=== PATIENT | female | born 1965 | race Two or more races ===

== ENCOUNTER → 2017-03-20 | Outpatient (CLI) | payer BC ==
[2017-03-20 08:00] LABS: ABSOLUTE BASOPHILS # (AUTO) 0.1 10^3/uL (0.0-0.2); ABSOLUTE EOSINOPHILS # (AUTO) 0.3 10^3/uL (0.0-0.6); ABSOLUTE LYMPHOCYTES (AUTO) 2.1 10^3/uL (0.5-4.7); ABSOLUTE MONOCYTES (AUTO) 0.6 10^3/uL (0.1-1.4); ABSOLUTE NEUT (AUTO) 4.4 10^3/uL (1.7-8.2); BASOPHILS % (AUTO) 0.7 % (0-2); EOSINOPHILS % (AUTO) 3.9 % (0-6); HEMATOCRIT 36.2 % (36.0-47.0); HEMOGLOBIN 11.8 g/dL (12.0-15.5); HGB HCT DIFFERENCE -0.8; LYMPHOCYTES % (AUTO) 28.3 % (13-45); MEAN CORPUSCULAR HEMOGLOBIN 26.9 pg (27.0-33.4); MEAN CORPUSCULAR HGB CONC 32.5 g/dL (32.0-36.0); MEAN CORPUSCULAR VOLUME 83 fl (80-97); MONOCYTES % (AUTO) 8.1 % (3-13); RED BLOOD COUNT 4.37 10^6/uL (3.72-5.28); RED CELL DISTRIBUTION WIDTH 15.6 % (11.5-14.0); WHITE BLOOD COUNT 7.4 10^3/uL (4.0-10.5)
[2017-03-20 08:13] LABS: ALANINE AMINOTRANSFERASE 23 U/L (9-52); ALKALINE PHOSPHATASE 107 U/L (38-126); ANION GAP 10 (5-19); ASPARTATE AMINO TRANSFERASE 20 U/L (14-36); BILIRUBIN,DIRECT 0.4 mg/dL (0.0-0.4); BILIRUBIN,TOTAL 0.7 mg/dL (0.2-1.3); BLOOD UREA NITROGEN 13 mg/dL (7-20); CALCIUM 9.9 mg/dL (8.4-10.2); CARBON DIOXIDE 31 mmol/L (22-30); CHLORIDE 100 mmol/L (98-107); CHOLESTEROL 149.32 mg/dL (0-200); CREATININE RESULT 0.47 mg/dL (0.52-1.25); Direct HDL 74 mg/dL (>40); GLUCOSE 100 mg/dL (75-110); POTASSIUM 4.4 mmol/L (3.6-5.0); TOTAL PROTEIN 7.5 g/dL (6.3-8.2); TRIGLYCERIDES 70 mg/dL (<150)
[2017-03-20 08:24] LABS: DIRECT LDL 55 mg/dL (<100)
== END ==
LOC: OD 07:15
PROVIDERS: ATTEND Psychiatry & Neurology Psychiatry
DX: F31.9 Bipolar disorder, unspecified (principal)
CPT/HCPCS: 36415; 80053; 80061; 84443; 85025

== ENCOUNTER → 2017-08-27 | Outpatient (CLI) | payer BC ==
[2017-08-27 09:17] LABS: ABSOLUTE EOSINOPHILS # (AUTO) 0.2 10^3/uL (0.0-0.6); ABSOLUTE MONOCYTES (AUTO) 0.6 10^3/uL (0.1-1.4); BASOPHILS % (AUTO) 0.7 % (0-2); EOSINOPHILS % (AUTO) 3.2 % (0-6); HEMATOCRIT 32.9 % (36.0-47.0); HEMOGLOBIN 10.9 g/dL (12.0-15.5); HGB HCT DIFFERENCE -0.2; LYMPHOCYTES % (AUTO) 34.3 % (13-45); MEAN CORPUSCULAR HEMOGLOBIN 27.6 pg (27.0-33.4); MEAN CORPUSCULAR VOLUME 84 fl (80-97); RED BLOOD COUNT 3.93 10^6/uL (3.72-5.28); RED CELL DISTRIBUTION WIDTH 16.6 % (11.5-14.0); SEGMENTED NEUTROPHILS % (AUTO) 51.8 % (42-78); WHITE BLOOD COUNT 5.9 10^3/uL (4.0-10.5)
[2017-08-27 09:40] LABS: ALANINE AMINOTRANSFERASE 44 U/L (9-52); ALBUMIN 3.9 g/dL (3.5-5.0); ALKALINE PHOSPHATASE 75 U/L (38-126); ANION GAP 10 (5-19); ASPARTATE AMINO TRANSFERASE 31 U/L (14-36); BILIRUBIN,DIRECT 0.3 mg/dL (0.0-0.4); BILIRUBIN,TOTAL 0.5 mg/dL (0.2-1.3); BLOOD UREA NITROGEN 14 mg/dL (7-20); CALCIUM 9.8 mg/dL (8.4-10.2); CARBON DIOXIDE 31 mmol/L (22-30); CHLORIDE 103 mmol/L (98-107); CHOLESTEROL 139.77 mg/dL (0-200); CREATININE RESULT 0.44 mg/dL (0.52-1.25); Direct HDL 93 mg/dL (>40); GLUCOSE 71 mg/dL (75-110); POTASSIUM 4.4 mmol/L (3.6-5.0); SODIUM 143.7 mmol/L (137-145); TOTAL PROTEIN 6.8 g/dL (6.3-8.2); TRIGLYCERIDES 59 mg/dL (<150)
[2017-08-27 09:51] LABS: DIRECT LDL 34 mg/dL (<100)
== END ==
LOC: OD 07:51
PROVIDERS: ATTEND Psychiatry & Neurology Psychiatry
DX: F31.9 Bipolar disorder, unspecified (principal); G47.00 Insomnia, unspecified
CPT/HCPCS: 36415; 80053; 80061; 84443; 85025

== ENCOUNTER → 2017-08-28 | Outpatient (CLI) | payer BC ==
--- NOTE | 2017-08-28 16:52 | RADIOLOGY REPORT (SQ) ---
EXAM DESCRIPTION: LUMBAR SPINE COMPLETE COMPLETED DATE/TIME: 08/28/2017 4:02 pm REASON FOR STUDY: RADICULOPATHY, SITE UNSPECIFIED M54.10 RADICULOPATHY, SITE UNSPECIFIED COMPARISON: None. NUMBER OF VIEWS: Five views including obliques. TECHNIQUE: AP, lateral, oblique, and sacral radiographic images acquired of the lumbar spine. LIMITATIONS: None. FINDINGS: MINERALIZATION: Normal. SEGMENTATION: Normal. No transitional anatomy. ALIGNMENT: There is minimal anterolisthesis of L 4 in relation to L5. VERTEBRAE: Maintained height. No fracture or worrisome bone lesion. DISCS: No significant disc space reduction is seen. There is anterior osteophytic lipping at multipl e levels. POSTERIOR ELEMENTS: Pedicles and facets are intact. No pars defect or posterior arch defects. HARDWARE: None in the spine. PARASPINAL SOFT TISSUES: Normal. PELVIS: Intact as visualized. No fractures or worrisome bone lesions. Degenerative changes are ident ified at the level of the SI joints with bony sclerosis. OTHER: No other significant finding. IMPRESSION: Degenerative changes as noted above TECHNICAL DOCUMENTATION: JOB ID: [id number] [employer]- All Rights Reserved
== END ==
LOC: OD 15:22
PROVIDERS: ATTEND Family Medicine
DX: M54.16 Radiculopathy, lumbar region (principal)
CPT/HCPCS: 72110

== ENCOUNTER → 2017-09-22 | Outpatient (CLI) | payer BC ==
--- NOTE | 2017-09-22 10:45 | RADIOLOGY REPORT (SQ) ---
EXAM DESCRIPTION: MRI LUMBAR SPINE WITHOUT COMPLETED DATE/TIME: 09/22/2017 9:56 am REASON FOR STUDY: RADICULOPATHY, LUMBAR REGION M54.16 RADICULOPATHY, LUMBAR REGION COMPARISON: Radiographs from recently. TECHNIQUE: Sagittal and Axial imaging includes T1, T2, STIR and gradient echo sequences. Coronal T2/ HASTE imaging. LIMITATIONS: None. FINDINGS: VISUALIZED UPPER ABDOMEN: Limited evaluation. No acute or suspicious findings suggested. SEGMENTATION: No transitional anatomy. The lowest well-developed disc space is labeled L5-S1. ALIGNMENT: Anatomic. VERTEBRAE: Intact. BONE MARROW: Normal. No marrow replacement or reactive changes. DISC SIGNAL: Mild decreased height and loss at L5-S1 particularly. POSTERIOR ELEMENTS: Generally intact. No pars defect evident. HARDWARE: None in the spine. CORD AND CONUS: Normal in size and signal intensity. Conus at the appropriate level. SOFT TISSUES: No aortic aneurysm seen. No bulky retroperitoneal adenopathy or mass. No paraspinal mas s or fluid. L1-L2: No significant spinal stenosis or exit foraminal stenosis. L2-L3: No significant spinal stenosis or exit foraminal stenosis. L3-L4: No significant spinal stenosis or exit foraminal stenosis. L4-L5: Facet hypertrophy and posterior ligament thickening with associated minimal central narrowing. Mild foraminal encroachment. L5-S1: Facet hypertrophy and posterior ligament thickening. Mild disc bulging generally extending la terally bilaterally. No significant central narrowing. Fairly mild foraminal encroachment bilateral ly. LOWER THORACIC: Incompletely imaged. No stenosis seen. SACRUM: Visualized upper sacrum intact. OTHER: No other significant findings. IMPRESSION: 1. Mild lumbar spondylosis without evidence of high-grade stenosis. TECHNICAL DOCUMENTATION: JOB ID: [id number]- All Rights Reserved
== END ==
LOC: RAD 08:50
PROVIDERS: ATTEND Family Medicine
DX: M54.16 Radiculopathy, lumbar region (principal)
CPT/HCPCS: 72148

== ENCOUNTER → 2017-12-20 | Outpatient (CLI) | payer BC ==
[2017-12-20 09:10] LABS: ALANINE AMINOTRANSFERASE 26 U/L (9-52); ALBUMIN 4.3 g/dL (3.5-5.0); ALKALINE PHOSPHATASE 89 U/L (38-126); ANION GAP 11 (5-19); ASPARTATE AMINO TRANSFERASE 21 U/L (14-36); BILIRUBIN,DIRECT 0.1 mg/dL (0.0-0.4); BILIRUBIN,TOTAL 0.3 mg/dL (0.2-1.3); BLOOD UREA NITROGEN 19 mg/dL (7-20); CALCIUM 9.8 mg/dL (8.4-10.2); CARBON DIOXIDE 32 mmol/L (22-30); CHLORIDE 98 mmol/L (98-107); CHOLESTEROL 147.57 mg/dL (0-200); GLUCOSE 54 mg/dL (75-110); SODIUM 140.5 mmol/L (137-145); TRIGLYCERIDES 44 mg/dL (<150)
[2017-12-20 09:21] LABS: DIRECT LDL 40 mg/dL (<100)
[2017-12-21 09:39] LABS: CREATININE URINE 19.8 mg/dL (Not Estab.)
[2017-12-21 09:49] LABS: MICROALBUMIN URINE <3.0 ug/mL (Not Estab.)
== END ==
LOC: OD 07:48
PROVIDERS: ATTEND Family Medicine
DX: E03.9 Hypothyroidism, unspecified (principal); E11.65 Type 2 diabetes mellitus with hyperglycemia; Z68.42 Body mass index [BMI] 45.0-49.9, adult
CPT/HCPCS: 36415; 80053; 80061; 82043; 82570; 83036

== ENCOUNTER 2018-01-18 09:03 | Emergency (ER) | payer BC ==
[2018-01-18 12:06] LABS: ABSOLUTE BASOPHILS # (AUTO) 0.1 10^3/uL (0.0-0.2); ABSOLUTE EOSINOPHILS # (AUTO) 0.1 10^3/uL (0.0-0.6); ABSOLUTE LYMPHOCYTES (AUTO) 1.7 10^3/uL (0.5-4.7); ABSOLUTE MONOCYTES (AUTO) 0.6 10^3/uL (0.1-1.4); ABSOLUTE NEUT (AUTO) 4.3 10^3/uL (1.7-8.2); BASOPHILS % (AUTO) 0.8 % (0-2); HEMATOCRIT 37.5 % (36.0-47.0); HEMOGLOBIN 12.5 g/dL (12.0-15.5); MEAN CORPUSCULAR HEMOGLOBIN 28.2 pg (27.0-33.4); MEAN CORPUSCULAR HGB CONC 33.4 g/dL (32.0-36.0); MEAN CORPUSCULAR VOLUME 85 fl (80-97); MONOCYTES % (AUTO) 8.2 % (3-13); PLATELET COUNT 342 10^3/uL (150-450); RED BLOOD COUNT 4.44 10^6/uL (3.72-5.28); RED CELL DISTRIBUTION WIDTH 14.9 % (11.5-14.0); TOTAL CELLS COUNTED % (AUTO) 100 %; WHITE BLOOD COUNT 6.8 10^3/uL (4.0-10.5)
[2018-01-18 12:26] LABS: ACETAMINOPHEN < 10 ug/mL (10-30); ALANINE AMINOTRANSFERASE 45 U/L (9-52); ALBUMIN 4.7 g/dL (3.5-5.0); ALCOHOL < 10 mg/dL (NONE DETECTED); ALKALINE PHOSPHATASE 97 U/L (38-126); ANION GAP 14 (5-19); ASPARTATE AMINO TRANSFERASE 34 U/L (14-36); BILIRUBIN,DIRECT 0.2 mg/dL (0.0-0.4); BILIRUBIN,TOTAL 0.4 mg/dL (0.2-1.3); BLOOD UREA NITROGEN 16 mg/dL (7-20); CALCIUM 10.6 mg/dL (8.4-10.2); CARBON DIOXIDE 30 mmol/L (22-30); CHLORIDE 96 mmol/L (98-107); GLUCOSE 114 mg/dL (75-110); POTASSIUM 3.8 mmol/L (3.6-5.0); SALICYLATE < 1.0 mg/dL (2.0-20.0); SODIUM 139.6 mmol/L (137-145); TOTAL PROTEIN 7.5 g/dL (6.3-8.2)
--- NOTE | 2018-01-18 13:54 | ER Document Report ---
ED Psych Disorder / Suicide <GEOVANNI CAMPBELL - Last Filed: 01/18/18 17:22> - General TRAVEL OUTSIDE OF THE U.S. IN LAST 30 DAYS: No - HPI Patient complains to provider of: Agitated <RITO MCDANIEL - Last Filed: 01/18/18 17:55> - General Chief Complaint: Psych Problem Stated Complaint: PSYCH EVAL Time Seen by Provider: 01/18/18 09:17 Notes: 52-year-old female. Followed by Dr. Nguyễn with psychiatry. Had a medication adjustment this week. Feeling more manic today. Denies any suicidal ideation or other issues at this time. and patient wanted to get checked out today. (RITO MCDANIEL) - Related Data Allergies/Adverse Reactions: No Known Allergies Allergy (Unverified 01/18/18 09:05) Past Medical History - General Information source: Patient, [facility] - Social History Smoking Status: Never Smoker Cigarette use (# per day): No Frequency of alcohol use: None Drug Abuse: None Lives with: Spouse/Significant other Family History: Reviewed & Not Pertinent Patient has suicidal ideation: No Patient has homicidal ideation: No Renal/ Medical History: Denies: Hx Peritoneal Dialysis <RITO MCDANIEL - Last Filed: 01/18/18 17:55> Review of Systems - Review of Systems Constitutional: No symptoms reported EENT: No symptoms reported Cardiovascular: No symptoms reported Respiratory: No symptoms reported Gastrointestinal: No symptoms reported Genitourinary: No symptoms reported Female Genitourinary: No symptoms reported Musculoskeletal: No symptoms reported Skin: No symptoms reported Hematologic/Lymphatic: No symptoms reported Neurological/Psychological: No symptoms reported, See HPI <RITO MCDANIEL - Last Filed: 01/18/18 17:55> Physical Exam - Vital signs Interpretation: Normal - General General appearance: Appears well, Alert - HEENT Head: Normocephalic, Atraumatic Eyes: Normal Pupils: PERRL - Respiratory Respiratory status: No respiratory distress Chest status: Nontender Breath sounds: Normal Chest palpation: Normal - Cardiovascular Rhythm: Regular Heart sounds: Normal auscultation Murmur: No - Abdominal Inspection: Normal Distension: No distension Bowel sounds: Normal Tenderness: Nontender Organomegaly: No organomegaly - Back Back: Normal, Nontender - Extremities General upper extremity: Normal inspection, Nontender, Normal color, Normal ROM , Normal temperature General lower extremity: Normal inspection, Nontender, Normal color, Normal ROM , Normal temperature, Normal weight bearing. No: Yeison's sign - Neurological Neuro grossly intact: Yes Cognition: Normal Orientation: AAOx4 [place] Coma Scale Eye Opening: Spontaneous [place] Coma Scale Verbal: Oriented [place] Coma Scale Motor: Obeys Commands Kimberly Coma Scale Total: 15 Speech: Normal Motor strength normal: LUE, RUE, LLE, RLE Sensory: Normal - Psychological Associated symptoms: Normal affect, Normal mood - Skin Skin Temperature: Warm Skin Moisture: Dry Skin Color: Normal <RITO MCDANIEL - Last Filed: 01/18/18 17:55> - Vital signs Vitals: Temp Pulse Resp BP Pulse Ox 98.1 F 93 20 112/56 L 98 01/18/18 09:12 01/18/18 09:12 01/18/18 09:12 01/18/18 09:12 01/18/18 09:12 Course - Laboratory Result Diagrams: 01/18/18 11:45 01/18/18 11:45 <GEOVANNI CAMPBELL - Last Filed: 01/18/18 17:22> - Laboratory Result Diagrams: 01/18/18 11:45 01/18/18 11:45 <RITO MCDANIEL - Last Filed: 01/18/18 17:55> - Re-evaluation Re-evalutation: 01/18/18 17:55 Mental health is seen. Patient's psychiatrist has been consulted. At this time we would like to try an outpatient trial. Family is comfortable with this plan. Comfortable discharging here shortly. (RITO MCDANIEL) - Vital Signs Vital signs: Temp Pulse Resp BP Pulse Ox 98.1 F 93 20 112/56 L 98 01/18/18 09:12 01/18/18 09:12 01/18/18 09:12 01/18/18 09:12 01/18/18 09:12 - Laboratory Laboratory results interpreted by wy: 01/18/18 01/18/18 11:45 11:45 RDW 14.9 H Chloride 96 L Creatinine 0.47 L Glucose 114 H Calcium 10.6 H Salicylates < 1.0 L Acetaminophen < 10 L Discharge <GEOVANNI CAMPBELL - Last Filed: 01/18/18 17:22> <RITO MCDANIEL - Last Filed: 01/18/18 17:55> - Discharge Clinical Impression: Bipolar disorder, unspecified Qualifiers: Active/Remission status: currently active Current bipolar episode type: hypomanic Qualified Code(s): F31.0 - Bipolar disorder, current episode hypomanic Condition: Stable Disposition: HOME, SELF-CARE Additional Instructions: Bipolar Disorder Bipolar disorder is also called manic-depressive disorder. Depression alternates with brain hyperactivity called mariano. Each phase lasts from several days to a few weeks. We don't know exactly what causes bipolar disorder , but it's treatable. During the "manic phase," you may feel elated and energetic. You may have racing thoughts, rapid speech, increased activity, and grandiose ideas. During this time, you may not realize how poor your judgement is. Inappropriate spending, drug abuse, excessive alcohol use, marriage problems, and irresponsible sexual behavior are common during the manic phase. During the "depressive phase," you might feel depressed, guilty, worthless , fatigued, and unable to concentrate. You might have thoughts of suicide. Good treatments are available for bipolar disorder. Lavallette is a classic drug for bipolar disorder, and is still often useful. If the manic phase is very mild, an antidepressant alone can be prescribed. If the manic phase is very severe, an antipsychotic medicine (such as Haldol) may be needed. The treatment must be matched to your symptoms, so it's important to work closely with your psychiatric care provider. Contact your physician, the hospital emergency center, crisis line, or your counsellor if you are losing control or having self-destructive thoughts. You are recommended to take your evening medications at 8:00pm (please awaken her for this) which includes her home medications of Seroquel 300 mg, Abilify 5 mg, and Celexa 20 mg. After today,you can go back to taking Seroquel 100 mg every morning and then 200 mg every afternoon, Abilify 5 mg daily and Celexa 20 mg daily. AT ANY TIME, IF YOUR SYMPTOMS CHANGE SIGNIFICANTLY OR WORSEN OR YOU DEVELOP NEW SYMPTOMS, RETURN TO THE EMERGENCY DEPARTMENT IMMEDIATELY FOR RE-EVALUATION. Referrals: ALLIE STREETER DO [Primary Care Provider] - Follow up as needed GHANSHYAM NGUYỄN MD [ LOCAL MD] - Follow up in 3-5 days
--- NOTE | 2018-01-18 14:06 | PSYCHOLOGICAL NOTE ---
Psych Note - Psych Note Psych Note: Reason for Consult: Manic Consent Permissions: Varinder Stuart, spouse, Patient presents to ER with psych problem. Family denies thoughts of suicide. Reports aggression toward , states "the way she takes, being passive". Family reports "she is different". Primary language is Libyan. Reports recent change in medications. states he is not home with her so he does not know if she has missed any doses. Patient's disclosed the patient has been "acting different" since their move approximately 3 weeks ago. He states this stayed in the same area however it was very stressful. She went to Dr. Quick's on Sunday and received a medication adjustment. He disclosed that he was told by Dr. Quick she should take the seroquel by taking 1 pill on Sunday to 2 pills on Sunday and 3 pills on Sunday however when he got the bottle it said 3 times a day. He is not sure if she has been taking all 3 she supposed to. He reports the patient used to get up and take her medications at 5:30 in the morning when she worked and was on schedule however now she may only be taking the medication when he gets home to remind her to and then again in the evening. He disclosed the patient has been diagnosed bipolar for the last 18 years and has had episodes before. He states he is unsure if it is because a medication change or the move and is set this off. Clinician spoke with patient's outpatient provider, Dr. Quick and litigation legal assistant nurse, they disclosed the patient was showing signs of mariano on Sunday so they started Seroquel; she was supposed to start with 100 mg daily and increase it each day until she got to 300 MG daily. Patient has also been prescribed Ambien 10 mg nightly as needed, in addition to Abilify 5 mg daily and Celexa 20 mg daily. Patient has been stabilized on Abilify since 2016. Dr. Quick mentioned the possibility of needing to check her thyroid because of the patient 's complaints of being hot and then cold. Patient is alert and orientated to person, place, time and circumstance. Mood is manic with flat affect. Patient is demonstrating pressured speech and flight of thought. No delusions are verbalized. eye contact was well- maintained. Attention and concentration are fair. Insight, judgment, impulse control is fair. Medication recommendations per [facility]'s contracted psychiatrist, Dr. Abdoulaye MD are as follows: 1. Zyprexa 10 mg now 2. Cogentin 1 mg now 2. Patient is recommended to take evening medications at 8:00pm (please awaken her for this) which includes her home medications of Seroquel 300 mg, Abilify 5 mg, and Celexa 20 mg. After today, patient can go back to taking Seroquel 100 mg every morning and then 200 mg every afternoon, Abilify 5 mg daily and Celexa 20 mg daily. 296.80 (F31.9) unspecified bipolar and related disorder per history provided by patient's mental health outpatient provider Impression\\plan: Patient is considered psychiatrically clear. Patient is not a danger to herself or others; while she does have pressured speech and flight of thought she is not demonstrating any behavioral aspects. Patient is calmly sitting in the bed. Medication recommendations have been provided. Dr. Quick 's office has been contacted. Patient is recommended to follow-up with her outpatient mental health provider, [facility], for continued outpatient mental health services. Dr. Enriquez was consulted and the care management this patient; attending physician is agreement with augmentations and disposition.
[2018-01-18] MEDS ORDERED: BENZTROPINE MESYLATE 1 MG TABLET PO ONE (14:56)
[2018-01-18] MEDS ORDERED: OLANZAPINE 5 MG TABLET PO ONE (14:56)
[2018-01-18 16:19] LABS: FREE T4 (FREE THYROXINE) 1.99 ng/dL (0.78-2.19)
[2018-01-18 16:33] LABS: THYROID STIMULATING HORMONE 0.74 uIU/mL (0.47-4.68)
[2018-01-18 18:16] VITALS: BP 106/60
--- NOTE | 2018-01-18 21:13 | EKG REPORT ---
SEVERITY:- NORMAL ECG - SINUS RHYTHM : Confirmed by: Kaz Chavira 18-Jan-2018 21:12:18
== END 2018-01-18 18:16 | disposition home or self-care (01) ==
LOC: ER 09:03
DX: F31.0 Bipolar disorder, current episode hypomanic (principal)
CPT/HCPCS: 36415; 80053; 80307; 84439; 84443; 85025; 93005; 93010; 99285

== ENCOUNTER → 2018-01-18 | Outpatient (CLI) | payer BC ==
[2018-01-18 09:14] LABS: ABSOLUTE EOSINOPHILS # (AUTO) 0.2 10^3/uL (0.0-0.6); ABSOLUTE LYMPHOCYTES (AUTO) 1.9 10^3/uL (0.5-4.7); ABSOLUTE MONOCYTES (AUTO) 0.5 10^3/uL (0.1-1.4); ABSOLUTE NEUT (AUTO) 4.2 10^3/uL (1.7-8.2); BASOPHILS % (AUTO) 0.7 % (0-2); EOSINOPHILS % (AUTO) 2.4 % (0-6); HEMATOCRIT 38.5 % (36.0-47.0); HEMOGLOBIN 12.7 g/dL (12.0-15.5); MEAN CORPUSCULAR HEMOGLOBIN 27.9 pg (27.0-33.4); MEAN CORPUSCULAR VOLUME 85 fl (80-97); MONOCYTES % (AUTO) 7.8 % (3-13); PLATELET COUNT 346 10^3/uL (150-450); RED BLOOD COUNT 4.56 10^6/uL (3.72-5.28); RED CELL DISTRIBUTION WIDTH 15.3 % (11.5-14.0); SEGMENTED NEUTROPHILS % (AUTO) 61.1 % (42-78); TOTAL CELLS COUNTED % (AUTO) 100 %; WHITE BLOOD COUNT 6.8 10^3/uL (4.0-10.5)
[2018-01-18 09:39] LABS: ALANINE AMINOTRANSFERASE 47 U/L (9-52); ALBUMIN 4.7 g/dL (3.5-5.0); ALKALINE PHOSPHATASE 102 U/L (38-126); ANION GAP 12 (5-19); ASPARTATE AMINO TRANSFERASE 36 U/L (14-36); BILIRUBIN,DIRECT 0.4 mg/dL (0.0-0.4); BILIRUBIN,TOTAL 0.4 mg/dL (0.2-1.3); BLOOD UREA NITROGEN 19 mg/dL (7-20); CALCIUM 10.5 mg/dL (8.4-10.2); CARBON DIOXIDE 30 mmol/L (22-30); CHLORIDE 98 mmol/L (98-107); CHOLESTEROL 151.75 mg/dL (0-200); GLUCOSE 120 mg/dL (75-110); POTASSIUM 3.7 mmol/L (3.6-5.0); SODIUM 140.4 mmol/L (137-145); TOTAL PROTEIN 8.1 g/dL (6.3-8.2); TRIGLYCERIDES 81 mg/dL (<150)
[2018-01-18 09:49] LABS: DIRECT LDL 48 mg/dL (<100)
== END ==
LOC: OD 08:21
PROVIDERS: ATTEND Psychiatry & Neurology Psychiatry
DX: F31.9 Bipolar disorder, unspecified (principal)
CPT/HCPCS: 36415; 80053; 80061; 84443; 85025

== ENCOUNTER 2018-01-20 04:40 | Emergency (ER) | payer BC ==
[2018-01-20] MEDS ORDERED: QUETIAPINE FUMARATE 100 MG TABLET PO ONE (05:11)
[2018-01-20 07:12] LABS: ABSOLUTE BASOPHILS # (AUTO) 0.1 10^3/uL (0.0-0.2); ABSOLUTE EOSINOPHILS # (AUTO) 0.2 10^3/uL (0.0-0.6); ABSOLUTE LYMPHOCYTES (AUTO) 2.1 10^3/uL (0.5-4.7); ABSOLUTE MONOCYTES (AUTO) 0.5 10^3/uL (0.1-1.4); ABSOLUTE NEUT (AUTO) 3.2 10^3/uL (1.7-8.2); BASOPHILS % (AUTO) 0.9 % (0-2); EOSINOPHILS % (AUTO) 3.6 % (0-6); HEMATOCRIT 40.8 % (36.0-47.0); HEMOGLOBIN 13.7 g/dL (12.0-15.5); LYMPHOCYTES % (AUTO) 34.2 % (13-45); MEAN CORPUSCULAR HEMOGLOBIN 28.4 pg (27.0-33.4); MEAN CORPUSCULAR HGB CONC 33.6 g/dL (32.0-36.0); MEAN CORPUSCULAR VOLUME 85 fl (80-97); MONOCYTES % (AUTO) 8.5 % (3-13); PLATELET COUNT 323 10^3/uL (150-450); RED BLOOD COUNT 4.84 10^6/uL (3.72-5.28); RED CELL DISTRIBUTION WIDTH 15.2 % (11.5-14.0); SEGMENTED NEUTROPHILS % (AUTO) 52.8 % (42-78); TOTAL CELLS COUNTED % (AUTO) 100 %
[2018-01-20 07:19] LABS: ACETAMINOPHEN < 10 ug/mL (10-30); ALANINE AMINOTRANSFERASE 37 U/L (9-52); ALBUMIN 4.8 g/dL (3.5-5.0); ALCOHOL < 10 mg/dL (NONE DETECTED); ALKALINE PHOSPHATASE 104 U/L (38-126); ANION GAP 15 (5-19); ASPARTATE AMINO TRANSFERASE 31 U/L (14-36); BILIRUBIN,DIRECT 0.4 mg/dL (0.0-0.4); BILIRUBIN,TOTAL 0.4 mg/dL (0.2-1.3); BLOOD UREA NITROGEN 22 mg/dL (7-20); CALCIUM 9.5 mg/dL (8.4-10.2); CARBON DIOXIDE 25 mmol/L (22-30); CHLORIDE 102 mmol/L (98-107); GLUCOSE 111 mg/dL (75-110); POTASSIUM 3.5 mmol/L (3.6-5.0); SALICYLATE < 1.0 mg/dL (2.0-20.0); SODIUM 141.7 mmol/L (137-145)
[2018-01-20 07:22] LABS: APPEARANCE,URINE SLIGHTLY-CLOUDY; BILIRUBIN,URINE NEGATIVE (NEGATIVE); CALCIUM OXALATE CRYSTALS,URINE MANY /HPF; COLOR,URINE YELLOW; GLUCOSE, URINE >=500 mg/dL (NEGATIVE); KETONES,URINE NEGATIVE (NEGATIVE); LEUKOCYTE ESTERASE,URINE LARGE (NEGATIVE); NITRITE,URINE NEGATIVE (NEGATIVE); PROTEIN,URINE NEGATIVE (NEGATIVE); URINE SPECIFIC GRAVITY 1.029
[2018-01-20 07:36] LABS: URINE AMPHETAMINES SCREEN NEGATIVE; URINE BARBITURATES SCREEN NEGATIVE; URINE BENZODIAZEPINES SCREEN NEGATIVE; URINE COCAINE SCREEN NEGATIVE; URINE MARIJUANA (THC) SCREEN NEGATIVE; URINE METHADONE SCREEN NEGATIVE; URINE PHENCYCLIDINE SCREEN NEGATIVE
[2018-01-20] MEDS ORDERED: LIDOCAINE 1% INJ-PF (10 MG/ML) 30 ML SDV INFIL ONE (07:55)
[2018-01-20] MEDS ORDERED: CEFTRIAXONE INJ 1000 MG VIAL IM ONE (07:55)
--- NOTE | 2018-01-20 08:33 | ER Document Report ---
ED General - General Chief Complaint: Psych Problem Stated Complaint: PSYCH EVAL Time Seen by Provider: 01/20/18 06:16 TRAVEL OUTSIDE OF THE U.S. IN LAST 30 DAYS: No - HPI Patient complains to provider of: Psychiatric evaluation Notes: Patient coming in for psychiatric evaluation. Patient was dropped off by her prior to my arrival. Patient is in her room speaking Syrian krishan Peck is at bedside lieutenant governor states that the patient is repeating herself saying okay. Intermittently the patient will speaking only stating "an okay at I love you" patient was recently seen and started on Seroquel. Patient was given a dose of Seroquel here. 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 Patient otherwise is unable to contribute to the HPI. Patient is repeating herself in Syrian not cooperating or following her commands. Patient is ambulating around the room. - Related Data Allergies/Adverse Reactions: No Known Allergies Allergy (Verified 01/20/18 10:11) Past Medical History - Social History Smoking Status: Never Smoker Chew tobacco use (# tins/day): No Frequency of alcohol use: None Drug Abuse: None Family History: Reviewed & Not Pertinent Patient has suicidal ideation: No Patient has homicidal ideation: No Endocrine Medical History: Reports: Hx Diabetes Mellitus Type 2 Renal/ Medical History: Denies: Hx Peritoneal Dialysis Psychiatric Medical History: Reports: Hx Bipolar Disorder Review of Systems - Review of Systems Notes: Possible hallucinations repeating herself -: Yes ROS unobtainable due to patient's medical condition Physical Exam - Vital signs Vitals: Temp Pulse Resp BP Pulse Ox 98.0 F 94 20 110/78 95 01/20/18 07:45 01/20/18 07:45 01/20/18 07:45 01/20/18 07:45 01/20/18 07:45 Interpretation: Normal - General General appearance: Appears well, Alert - HEENT Head: Normocephalic, Atraumatic Eyes: Normal Pupils: PERRL - Respiratory Respiratory status: No respiratory distress Chest status: Nontender Breath sounds: Normal Chest palpation: Normal - Cardiovascular Rhythm: Regular Heart sounds: Normal auscultation Murmur: No - Abdominal Inspection: Normal Distension: No distension Bowel sounds: Normal Tenderness: Nontender Organomegaly: No organomegaly - Back Back: Normal, Nontender - Extremities General upper extremity: Normal inspection, Nontender, Normal color, Normal ROM , Normal temperature General lower extremity: Normal inspection, Nontender, Normal color, Normal ROM , Normal temperature, Normal weight bearing. No: Yeison's sign - Neurological Neuro grossly intact: Yes Cognition: Normal [place] Coma Scale Eye Opening: Spontaneous Citlaly Coma Scale Verbal: Oriented [place] Coma Scale Motor: Obeys Commands [place] Coma Scale Total: 15 Speech: Normal Motor strength normal: LUE, RUE, LLE, RLE Sensory: Normal - Psychological Associated symptoms: Uncooperative, Other - Repeating herself in Syrian - Skin Skin Temperature: Warm Skin Moisture: Dry Skin Color: Normal Course - Re-evaluation Re-evalutation: 01/20/18 08:35 Patient laboratory studies shows possibly a urinary tract infection will give an IM dose of Rocephin patient otherwise does not look to be harming herself or threatening the staff we will continue to monitor the patient until our psychiatric team can make an evaluation. 01/20/18 14:24 Patient continues with her hyperverbal states her mental health team recommended IVC I agree with this at this time patient did receive a dose of Rocephin would recommend following cultures if patient is discharged the patient may be just be on antibiotics Macrobid and Keflex for 5 days. Recommendation for medications Zyprexa and Cogentin which have been ordered. Patient continued to walk in her room therefore a dose of Ativan and Benadryl were given as well. - Vital Signs Vital signs: Temp Pulse Resp BP Pulse Ox 97.5 F 93 18 105/71 96 01/20/18 11:31 01/20/18 11:31 01/20/18 11:31 01/20/18 11:31 01/20/18 11:31 - Laboratory Result Diagrams: 01/20/18 06:15 01/20/18 06:15 Laboratory results interpreted by me: 01/20/18 01/20/18 01/20/18 05:12 06:15 06:15 RDW 15.2 H Potassium 3.5 L BUN 22 H Creatinine 0.40 L Glucose 111 H POC Glucose 125 H Urine Glucose (UA) Urine Urobilinogen Ur Leukocyte Esterase Salicylates < 1.0 L Acetaminophen < 10 L 01/20/18 01/20/18 06:15 12:17 RDW Potassium BUN Creatinine Glucose POC Glucose 120 H Urine Glucose (UA) >=500 H Urine Urobilinogen 4.0 H Ur Leukocyte Esterase LARGE H Salicylates Acetaminophen Discharge - Discharge Clinical Impression: Bipolar disorder, unspecified Disposition: PSYCH HOSP/UNIT Referrals: RICHARD STREETER MD [Primary Care Provider] - Follow up as needed
[2018-01-20] MEDS ORDERED: OLANZAPINE 5 MG TAB.RAPDIS PO ONE (10:09)
[2018-01-20] MEDS ORDERED: OLANZAPINE INJ/PF 10 MG SDV IM ONE (10:39)
[2018-01-20] MEDS ORDERED: BENZTROPINE MESYLATE INJ 2 MG/2 ML AMPULE IM ONE (10:39)
--- NOTE | 2018-01-20 10:52 | EKG REPORT ---
SEVERITY:- NORMAL ECG - SINUS RHYTHM : Confirmed by: Kaz Chavira 20-Jan-2018 10:51:49
[2018-01-20] MEDS ORDERED: OLANZAPINE 5 MG TABLET PO ONE (13:06)
[2018-01-20] MEDS ORDERED: DIPHENHYDRAMINE HCL 50 MG CAPSULE PO ONE (13:50)
[2018-01-20] MEDS ORDERED: LORAZEPAM 1 MG TABLET PO ONE (13:50)
[2018-01-20] MEDS: BENZTROPINE MESYLATE 1 MG TABLET PO SCH (20:57)
[2018-01-20] MEDS: OLANZAPINE 5 MG TABLET PO SCH (20:57)
--- NOTE | 2018-01-21 07:48 | PSYCHOLOGICAL NOTE ---
Psych Note - Psych Note Psych Note: Reason for consult: Symptoms of mariano Time of consult 8:30 am Final Disposition : 9:45 am Patient is a 52-year-old female. Patient reports that her knows her medications, and she is unaware of what medications she takes. .Clinician observed patient would only speak in [place]uran however her states she knows German. Collateral information: Patient's Justin Serra reports patient who is diagnosed with bipolar disorder in year 1999. Patient's reports she was treated for the bipolar disorder with lithium while in [place]. Patient's reports when they moved to [place] she change medications which were helpful in treating her symptoms of bipolar disorder. Patient's reports patient medications have not been working the last several weeks. Patient's reports patient does not sleep at night. Patient's reports he brought her here a few days ago and was sent home with a new prescription, however those medicines did not work to help patient sleep or stop her pressured speech. Patient's reports he is concerned for the safety of himself and his daughter because patient has become aggressive without warning in their home. Patient's reports last night she went to bed at 11:30 at night but woke up at 3 AM shaking him stating an earthquake had happened. Patient's reports that patient will not stop moving around in the house or talking. Patient's reports he is unable to manage her behaviors in their home until her symptoms are treated as he is concerned for her safety as well. Patient's reports patient was in a psychiatric hospital once in [place] and multiple times in [place] since the onset of bipolar disorder. Medication recommendations made by [facility] contracted psychiatric provider Dr. Abdoulaye MD. includes: Begin Zyprexa 10 mg IM now Begin Cogentin 1 mg IM now Begin Zyprexa 5 mg IM/p.o. twice daily Begin Cogentin 1 mg IM/p.o. daily Diagnosis: 296.43 ( F31.13) Per history bipolar 1 disorder current episode manic severe Impression/plan: Recommendation to involuntary commit patient due to patient meeting criteria [facility] 122C per reports of patient displaying aggressive behaviors, patient currently presenting with mariano that include; restlessness, lack of sleep, flight of ideas, and erratic behavior. Clinician observed patient is continuously moving throughout the assessment, unable to answer assessment questions, and displays pressured speech. Clinician observed patient displays erratic behavior and requires redirection to stay in her room. Consulted with Dr. Enriquez regarding the management and care of patient.
--- NOTE | 2018-01-21 10:11 | ER Document Report ---
Doctor's Note Notes: 01/21/18 10:10 Rounds: Chart reviewed and patient interviewed. Patient continues with her chanting or singing repetition in Citizen Of [place]. Has no complaints this morning. Denies having any pains. Vital signs are all normal. Lab studies were normal with the exception that her urine had some white cells. She was given a dose of Rocephin IM and were going to follow her cultures. This could just be contamination. Patient appears to be medically stable for transfer or discharge. Jaimee Hansen MD
[2018-01-21] MEDS: OLANZAPINE 5 MG TABLET PO SCH (10:12)
[2018-01-21] MEDS: BENZTROPINE MESYLATE 1 MG TABLET PO SCH (10:13)
--- NOTE | 2018-01-21 11:47 | PSYCHOLOGICAL NOTE ---
Psych Note - Psych Note Psych Note: Re-eval 8:50 am Collateral information: Patient's Justin Serra Patient is a 52 yr. old. Patient explained to clinician that there was a boy in her room, and was confused as to why he was not entering the room.Patient reports that her takes care of her and is tired so she knows why she is in the hospital. Patient reports she has Bipolar disorder, stating " yo tenemos Bipolar, gosia yo quiero hablar, hablar mucho". Patient reports she is aware of her symptoms, and wants to get better, stating " cuando yo saliemos, yo esta óscar" [ translated: when do I leave, I'm fine"]. Clinician provided education on Bipolar Mariano symptoms to patient in Citizen Of [place], the process of involuntary commitment, and psychiatric hospitals. Clinician observed no "boy" was present. Clinician observed patient is responding to internal stimuli. Clinician observed patient still presents as manic. Clinician observed patient has pressured speech, erratic behavior, but has been able to use the restroom on her own( per nurse). Clinician observed patient's behaviors are repetitive to include repeating the same statements and compliments to staff in [place]. Collateral Information: Varinder Serra Patient's reports he wants medical staff to know that his has back and knee "problems". Patient's reports that due to the back and knee problems she needs a cane or a walker to walk and that is why she walks slowly around her room. Patient's reports that he is aware she is being transferred to another hospital for psychiatric purposes. manager oncology Aubrey Camp updated patient's on patient's status. Medication recommendations made by [facility] contracted psychiatric provider Dr. Abdoulaye MD. includes: Begin Depakote Sprinkles 250 mg twice daily Continue Zyprexa 5 mg IM/p.o. twice daily Continue Cogentin 1 mg IM/p.o. daily Diagnosis: 296.43 ( F31.13) Per history bipolar 1 disorder current episode manic severe Impression/plan: Recommendation to maintain involuntary commit patient due to patient meeting criteria [facility] 122C per reports of patient displaying aggressive behaviors, patient currently presenting with mariano that include; restlessness, lack of sleep, flight of ideas, and erratic behavior.Clinician observed patient displays pressured speech. Clinician observed patient displays erratic behavior.Consulted with Dr. Enriquez regarding the management and care of patient.
[2018-01-21] MEDS ORDERED: DIVALPROEX SODIUM 125 MG CAP.SPRINK PO SCH ×2 (12:45→22:00)
[2018-01-21] MEDS ORDERED: DIVALPROEX SODIUM 125 MG CAP.SPRINK PO ONE (13:30)
[2018-01-21 16:21] VITALS: BP 108/71
[2018-01-21] MEDS ORDERED: BENZTROPINE MESYLATE 1 MG TABLET PO SCH (22:00)
[2018-01-21] MEDS ORDERED: OLANZAPINE 5 MG TABLET PO SCH (22:00)
== END 2018-01-21 16:40 ==
LOC: ER 04:40
DX: F31.9 Bipolar disorder, unspecified (principal); E11.9 Type 2 diabetes mellitus without complications
CPT/HCPCS: 93005; 99285; 96372; 36415; 87086; 82962; 80307 ×4; 85025; 80053; 81001; 93010; J0515; J3490 ×2; J0696

== ENCOUNTER → 2018-04-12 | Outpatient (CLI) | payer BC ==
[2018-04-12 09:14] LABS: ALANINE AMINOTRANSFERASE 19 U/L (9-52); ALBUMIN 3.8 g/dL (3.5-5.0); ALKALINE PHOSPHATASE 77 U/L (38-126); ANION GAP 10 (5-19); ASPARTATE AMINO TRANSFERASE 15 U/L (14-36); BILIRUBIN,DIRECT 0.2 mg/dL (0.0-0.4); BILIRUBIN,TOTAL 0.2 mg/dL (0.2-1.3); BLOOD UREA NITROGEN 18 mg/dL (7-20); CALCIUM 9.6 mg/dL (8.4-10.2); CARBON DIOXIDE 33 mmol/L (22-30); CHLORIDE 101 mmol/L (98-107); GLUCOSE 80 mg/dL (75-110); POTASSIUM 4.7 mmol/L (3.6-5.0); SODIUM 143.9 mmol/L (137-145); TRIGLYCERIDES 83 mg/dL (<150)
[2018-04-12 09:25] LABS: DIRECT LDL 40 mg/dL (<100)
[2018-04-13 11:38] LABS: CREATININE URINE 47.1 mg/dL (Not Estab.)
[2018-04-14 03:59] LABS: MICROALBUMIN URINE <3.0 ug/mL (Not Estab.)
== END ==
LOC: OD 07:50
PROVIDERS: ATTEND Psychiatry & Neurology Psychiatry
DX: E03.9 Hypothyroidism, unspecified (principal); E11.65 Type 2 diabetes mellitus with hyperglycemia; E78.2 Mixed hyperlipidemia; M99.83 Other biomechanical lesions of lumbar region; E66.01 Morbid (severe) obesity due to excess calories
CPT/HCPCS: 36415; 80053; 80061; 80164; 82043; 82570; 83036; 84443

== ENCOUNTER → 2019-01-07 | Outpatient (CLI) | payer BC, OTHER ==
[2019-01-07 09:40] LABS: ABSOLUTE EOSINOPHILS # (AUTO) 0.2 10^3/uL (0.0-0.6); ABSOLUTE LYMPHOCYTES (AUTO) 1.5 10^3/uL (0.5-4.7); ABSOLUTE MONOCYTES (AUTO) 0.8 10^3/uL (0.1-1.4); ABSOLUTE NEUT (AUTO) 3.3 10^3/uL (1.7-8.2); BASOPHILS % (AUTO) 0.8 % (0-2); EOSINOPHILS % (AUTO) 2.8 % (0-6); HEMATOCRIT 35.8 % (36.0-47.0); LYMPHOCYTES % (AUTO) 25.9 % (13-45); MEAN CORPUSCULAR HEMOGLOBIN 28.1 pg (27.0-33.4); MEAN CORPUSCULAR HGB CONC 33.6 g/dL (32.0-36.0); MEAN CORPUSCULAR VOLUME 84 fl (80-97); MONOCYTES % (AUTO) 13.2 % (3-13); PLATELET COUNT 274 10^3/uL (150-450); RED BLOOD COUNT 4.28 10^6/uL (3.72-5.28); RED CELL DISTRIBUTION WIDTH 16.3 % (11.5-14.0); SEGMENTED NEUTROPHILS % (AUTO) 57.3 % (42-78); TOTAL CELLS COUNTED % (AUTO) 100 %; WHITE BLOOD COUNT 5.8 10^3/uL (4.0-10.5)
[2019-01-07 10:04] LABS: ALANINE AMINOTRANSFERASE 25 U/L (9-52); ALBUMIN 4.1 g/dL (3.5-5.0); ALKALINE PHOSPHATASE 99 U/L (38-126); ANION GAP 10 (5-19); ASPARTATE AMINO TRANSFERASE 19 U/L (14-36); BILIRUBIN,DIRECT 0.2 mg/dL (0.0-0.4); BILIRUBIN,TOTAL 0.4 mg/dL (0.2-1.3); BLOOD UREA NITROGEN 18 mg/dL (7-20); CALCIUM 9.7 mg/dL (8.4-10.2); CARBON DIOXIDE 35 mmol/L (22-30); CHLORIDE 95 mmol/L (98-107); CHOLESTEROL 118.95 mg/dL (0-200); GLUCOSE 123 mg/dL (75-110); POTASSIUM 4.4 mmol/L (3.6-5.0); SODIUM 139.7 mmol/L (137-145); TOTAL PROTEIN 7.4 g/dL (6.3-8.2); TRIGLYCERIDES 76 mg/dL (<150)
[2019-01-07 10:15] LABS: DIRECT LDL 46 mg/dL (<100)
== END ==
LOC: OD 08:23
PROVIDERS: ATTEND Psychiatry & Neurology Psychiatry
DX: F31.9 Bipolar disorder, unspecified (principal); F51.01 Primary insomnia; Z79.899 Other long term (current) drug therapy
CPT/HCPCS: 36415; 80053; 80061; 84443; 85025

== ENCOUNTER 2019-06-15 15:28 | Emergency (ER) | payer BC ==
--- NOTE | 2019-06-15 16:04 | ER Document Report ---
ED Medical Screen (RME) - General Chief Complaint: Psych Problem Stated Complaint: PSYCH EVAL Time Seen by Provider: 06/15/19 15:47 Primary Care Provider: GHANSHYAM NGUYỄN MD [Primary Care Provider] - Follow up as needed Notes: Patient is a 53-year-old female with a history of bipolar depression who presents to the emergency department with hallucinations. is at bedside to provide additional history. states that patient sister is visiting from [facility] and she is a news copy editor and has recently changed her diet to 3-4 small portions a day. states that the patient is taking her medi cations as prescribed. Patient started having hallucinations and was brought here to the emergency department. In the last 2 days she is lost 4-1/2 pounds. Patient also has a past medical history of hypertension, hyperlipidemia, and hypothyroidism. She has been evaluated here in the emergency department before. I asked the patient in Khmer if she had any pain and where and she stated, "Mi Trista," translates to, "my heart." Exam: S1-S2. Patient hallucinating and thinking that her sister who is a doctor is in the room. Plan is to rule out any cardiac etiology, as the patient is hallucinating and we are not able to get a proper assessment due to hallucinations. I have greeted and performed a rapid initial assessment of this patient. A comprehensive ED assessment and evaluation of the patient, analysis of test results and completion of medical decision making process will be conducted by an additional ED providers. TRAVEL OUTSIDE OF THE [place] IN LAST 30 DAYS: No - Related Data Allergies/Adverse Reactions: No Known Allergies Allergy (Verified 06/15/19 15:29) Past Medical History - Social History Frequency of alcohol use: None Drug Abuse: None - Past Medical History Cardiac Medical History: Reports: Hx Hypercholesterolemia, Hx Hypertension Endocrine Medical History: Reports: Hx Diabetes Mellitus Type 2 Renal/ Medical History: Denies: Hx Peritoneal Dialysis Psychiatric Medical History: Reports: Hx Bipolar Disorder Physical Exam - Vital signs Vitals: Temp Pulse Resp BP 99.6 F 115 H 18 150/45 H 06/15/19 15:38 06/15/19 15:38 06/15/19 15:38 06/15/19 15:38 Course - Vital Signs Vital signs: Temp Pulse Resp BP Pulse Ox 99.6 F 115 H 18 150/45 H 06/15/19 15:38 06/15/19 15:38 06/15/19 15:38 06/15/19 15:38 Doctor's Discharge - Discharge Referrals: GHANSHYAM NGUYỄN MD [Primary Care Provider] - Follow up as needed
[2019-06-15 17:01] LABS: ABSOLUTE EOSINOPHILS # (AUTO) 0.1 10^3/uL (0.0-0.6); ABSOLUTE LYMPHOCYTES (AUTO) 1.4 10^3/uL (0.5-4.7); ABSOLUTE MONOCYTES (AUTO) 0.8 10^3/uL (0.1-1.4); ABSOLUTE NEUT (AUTO) 5.2 10^3/uL (1.7-8.2); BASOPHILS % (AUTO) 0.4 % (0-2); EOSINOPHILS % (AUTO) 0.7 % (0-6); HEMATOCRIT 40.2 % (36.0-47.0); HEMOGLOBIN 13.1 g/dL (12.0-15.5); LYMPHOCYTES % (AUTO) 19.1 % (13-45); MEAN CORPUSCULAR HEMOGLOBIN 27.5 pg (27.0-33.4); MEAN CORPUSCULAR HGB CONC 32.5 g/dL (32.0-36.0); MEAN CORPUSCULAR VOLUME 85 fl (80-97); MONOCYTES % (AUTO) 10.2 % (3-13); PLATELET COUNT 288 10^3/uL (150-450); RED BLOOD COUNT 4.75 10^6/uL (3.72-5.28); RED CELL DISTRIBUTION WIDTH 16.7 % (11.5-14.0); SEGMENTED NEUTROPHILS % (AUTO) 69.6 % (42-78); TOTAL CELLS COUNTED % (AUTO) 100 %; WHITE BLOOD COUNT 7.4 10^3/uL (4.0-10.5)
[2019-06-15 17:23] LABS: ALBUMIN 4.3 g/dL (3.5-5.0); ALKALINE PHOSPHATASE 79 U/L (38-126); ANION GAP 11 (5-19); ASPARTATE AMINO TRANSFERASE 29 U/L (14-36); BILIRUBIN,DIRECT 0.3 mg/dL (0.0-0.4); BILIRUBIN,TOTAL 0.8 mg/dL (0.2-1.3); BLOOD UREA NITROGEN 15 mg/dL (7-20); CALCIUM 9.9 mg/dL (8.4-10.2); CARBON DIOXIDE 31 mmol/L (22-30); CHLORIDE 92 mmol/L (98-107); CREATINE KINASE 132 U/L (30-135); GLUCOSE 165 mg/dL (75-110); POTASSIUM 3.8 mmol/L (3.6-5.0); TOTAL PROTEIN 7.3 g/dL (6.3-8.2)
[2019-06-15 17:24] LABS: ACETAMINOPHEN < 10 ug/mL (10-30); ALCOHOL < 10 mg/dL (NONE DETECTED); SALICYLATE < 1.0 mg/dL (2.0-20.0)
[2019-06-15 17:34] LABS: CREATINE KINASE MB 1.53 ng/mL (<4.55)
[2019-06-15 17:35] LABS: TROPONIN I < 0.012 ng/mL
--- NOTE | 2019-06-15 18:12 | ER Document Report ---
ED General - General Chief Complaint: Psych Problem Stated Complaint: PSYCH EVAL Time Seen by Provider: 06/15/19 15:47 Primary Care Provider: GHANSHYAM QUICK MD [Primary Care Provider] - Follow up as needed Notes: 53-year-old Cameroonian-speaking female presents the emergency department the care of her family who are concerned that she is having a manic episode. She is known to be bipolar and they state for the past 2 weeks she has been having increasing hallucinations, decreasing sleep, uses Ambien at night and only sleeps for 3 to 4 hours at a time and then wakes up. They have noticed that her mariano is returning. They state that the last time this happened she ended up having to do inpatient intensive treatment for several days. does not know whether or not she has been taking her medications as directed. States that they visited Dr. Quick on Sunday and no changes made to her medications. is concerned that a new diet on which she has been using shakes and then decreasing caloric intake may be causing her to become manic. He cannot recall what the shakes are. They stopped using these approximately 2 weeks ago and her symptoms have actually worsened rather than improving. The caloric restriction was put in place by her [id number] who is visiting her from [facility] and is a sap trainer. When speaking directly with the patient through the [employer] scrap materials buyer patient c annot give me much history, she does relate that she is having pain in her chest, when I questioned about this she states that it is from breast-feeding her son. She later admits that her son is at least 20 years old and she is simply remembering the pain that she used to have when she was nursing him and he would bite. Patient does not appear to be have any active chest pain at this time. TRAVEL OUTSIDE OF THE [place] IN LAST 30 DAYS: No - Related Data Allergies/Adverse Reactions: No Known Allergies Allergy (Verified 06/15/19 15:29) Past Medical History - General Information source: Patient - Social History Smoking Status: Never Smoker Frequency of alcohol use: None Drug Abuse: None Lives with: Spouse/Significant other Family History: Reviewed & Not Pertinent Patient has suicidal ideation: No Patient has homicidal ideation: No - Past Medical History Cardiac Medical History: Reports: Hx Hypercholesterolemia, Hx Hypertension Endocrine Medical History: Reports: Hx Diabetes Mellitus Type 2 Renal/ Medical History: Denies: Hx Peritoneal Dialysis Psychiatric Medical History: Reports: Hx Bipolar Disorder Review of Systems - Review of Systems Constitutional: See HPI - Hallucinations, Weight loss - This is intentional, she is on a diet. EENT: No symptoms reported Cardiovascular: Chest pain - related to memories of breast-feeding. Respiratory: No symptoms reported Neurological/Psychological: See HPI, Confusion, Hallucinations -: Yes All other systems reviewed and negative Physical Exam - Vital signs Vitals: Temp Pulse Resp BP 99.6 F 115 H 18 150/45 H 06/15/19 15:38 06/15/19 15:38 06/15/19 15:38 06/15/19 15:38 Interpretation: Hypertensive, Tachycardic - Notes Notes: GENERAL: Awake, talking to herself and people who are not actually in the room, becomes anxious and speech is pressured when you interact with her. Cameroonian- speaking with minimal [place]. Appears to have flight of ideas with the scrap materials buyer. Obese HEAD: Normocephalic, atraumatic EYES: Pupils equal, round and reactive to light, extraocular movements intact. ENT: Oral mucosa moist, tongue midline. NECK: Full range of motion, supple, trachea midline. LUNGS: Clear to auscultation bilaterally, no wheezes, rales or rhonchi, no respiratory distress. HEART: Regular rate and rhythm, no murmurs, gallops, rubs. ABDOMEN: Soft, nontender, nondistended, bowel sounds present in all 4 quadrants. EXTREMITIES: Moves all 4 extremities spontaneously, no edema, radial and dorsalis pedis pulses 2/4 bilaterally. No cyanosis. NEUROLOGICAL: Alert, oriente to person but not to place or time, speech is pressured but not slurred, no facial droop, biceps and patellar DTRs 2+ bilaterally. PSYCH: Hallucinating, pressured speech, somewhat manic. SKIN: Warm, Dry, normal turgor, no rashes or lesions noted. Course - Re-evaluation Re-evalutation: 06/15/19 19:11 CBC unremarkable CMP shows slight low sodium at 134, elevated glucose at 165, she is a known diabetic, otherwise unremarkable, troponin undetectable, suspect her chest pain that she relates and relates that it associated with the memory of breast-feeding her children is not cardiac in nature. T4 slightly elevated but TSH and T3 are normal, salicylates, acetaminophen, lithium and alcohol are all undetectable. Urine drug screen and urinalysis are pending. I have restarted the patient's home medications with the exception of zolpidem and aripiprazole. I have gone ahead and researched in her chart which she has been unsuccessful in the past and went ahead and restarted the Depakote sprinkles, the Zyprexa and the Cogentin from her hospitalization here within the past 2 years. She is now medically cleared, behavioral health has been consulted. Patient is under 24-hour petition for apparent uncontrolled bipolar. - Vital Signs Vital signs: Temp Pulse Resp BP Pulse Ox 99.6 F 115 H 18 150/45 H 96 06/15/19 15:38 06/15/19 15:38 06/15/19 15:38 06/15/19 15:38 06/15/19 15:58 - Laboratory Result Diagrams: 06/15/19 16:48 06/15/19 16:48 Laboratory results interpreted by me: 06/15/19 06/15/19 06/15/19 16:48 16:48 16:48 RDW 16.7 H Sodium 134.0 L Chloride 92 L Carbon Dioxide 31 H Glucose 165 H Free T4 Salicylates < 1.0 L Acetaminophen < 10 L [place] < 0.2 L 06/15/19 16:48 RDW Sodium Chloride Carbon Dioxide Glucose Free T4 2.50 H Salicylates Acetaminophen [place] - EKG Interpretation by Me Additional EKG results interpreted by me: 06/15/19 19:11 EKG shows sinus rhythm rate of 96, normal axis, normal intervals, no ST segment elevations or depressions, no T wave inversions per my intepretation. Discharge - Discharge Clinical Impression: Bipolar disorder Qualifiers: Active/Remission status: remission status unspecified Qualified Code(s): F31.9 - Bipolar disorder, unspecified Condition: Stable Disposition: PSYCH HOSP/UNIT Referrals: GHANSHYAM QUICK MD [Primary Care Provider] - Follow up as needed
[2019-06-15] MEDS ORDERED: BENZTROPINE MESYLATE 1 MG TABLET PO SCH (18:15)
[2019-06-15 18:23] LABS: FREE T3 4.08 pg/mL (2.77-5.27); FREE T4 (FREE THYROXINE) 2.5 ng/dL (0.78-2.19)
[2019-06-15] MEDS: DIVALPROEX SODIUM 125 MG CAP.SPRINK PO SCH (18:35)
[2019-06-15] MEDS: METFORMIN HCL 500 MG TABLET PO SCH (18:35)
[2019-06-15] MEDS: OLANZAPINE 5 MG TABLET PO SCH (18:35)
[2019-06-15 18:37] LABS: THYROID STIMULATING HORMONE 1.89 uIU/mL (0.47-4.68)
[2019-06-15] MEDS ORDERED: BENZTROPINE MESYLATE 1 MG TABLET PO ONE (19:30)
[2019-06-15] MEDS ORDERED: INSULIN GLARGINE,HUM.REC.ANLOG 1,000 UNIT/10 ML VIAL SUBCUT SCH (22:00)
--- NOTE | 2019-06-15 23:14 | EKG REPORT ---
SEVERITY:- NORMAL ECG - SINUS RHYTHM : Confirmed by: Kimberly Chao MD 15-Jun-2019 23:12:52
[2019-06-16] MEDS ORDERED: INSULIN GLARGINE,HUM.REC.ANLOG 1,000 UNIT/10 ML VIAL (PYX) SUBCUT ONE (01:20)
[2019-06-16 07:43] LABS: APPEARANCE,URINE CLOUDY; BILIRUBIN,URINE NEGATIVE (NEGATIVE); GLUCOSE, URINE NEGATIVE (NEGATIVE); KETONES,URINE TRACE mg/dL (NEGATIVE); LEUKOCYTE ESTERASE,URINE LARGE (NEGATIVE); NITRITE,URINE POSITIVE (NEGATIVE); PROTEIN,URINE 30 mg/dL (NEGATIVE); URINE SPECIFIC GRAVITY 1.014
[2019-06-16 07:44] LABS: COLOR,URINE YELLOW
[2019-06-16 07:56] LABS: URINE AMPHETAMINES SCREEN NEGATIVE; URINE BARBITURATES SCREEN NEGATIVE; URINE BENZODIAZEPINES SCREEN NEGATIVE; URINE COCAINE SCREEN NEGATIVE; URINE MARIJUANA (THC) SCREEN NEGATIVE; URINE METHADONE SCREEN NEGATIVE; URINE PHENCYCLIDINE SCREEN NEGATIVE
[2019-06-16] MEDS ORDERED: BENZTROPINE MESYLATE 1 MG TABLET PO SCH (10:00)
[2019-06-16] MEDS ORDERED: LEVOTHYROXINE SODIUM 0.05 MG TABLET PO SCH (10:00)
[2019-06-16] MEDS ORDERED: PIOGLITAZONE HCL 30 MG TABLET PO SCH (10:00)
[2019-06-16] MEDS ORDERED: HYDROCHLOROTHIAZIDE 25 MG TABLET PO SCH (10:00)
[2019-06-16] MEDS ORDERED: LURASIDONE HCL 40 MG TABLET PO SCH (10:00)
[2019-06-16] MEDS ORDERED: SIMVASTATIN 10 MG TABLET PO SCH (10:00)
[2019-06-16] MEDS: METFORMIN HCL 500 MG TABLET PO SCH (10:50)
[2019-06-16] MEDS: DIVALPROEX SODIUM 125 MG CAP.SPRINK PO SCH (10:51)
[2019-06-16] MEDS: OLANZAPINE 5 MG TABLET PO SCH (10:51)
--- NOTE | 2019-06-16 13:15 | ER Document Report ---
Doctor's Note Notes: 06/16/19 13:14 Rounds: Chart reviewed and patient interviewed. Patient being evaluated for bipolar disorder with acute psychosis. Patient's labs are all essentially normal. Her vital signs are normal except her O2 sat tends to dip below 90%. Patient denies any history of any lung disease. Does not smoke. Has not had any recent respiratory illness. Nurse says that the patient's O2 sat drops down below 90 when she is sleeping and rested and recumbent. When she sits up some and moves around her O2 sat comes back up into the 90s. At the bedside now, patient's O2 sat is in the 94 to 95% range on no oxygen. Patient appears to be medically stable for transfer or discharge. Karl Hansen MD
[2019-06-16 13:16] VITALS: BP 132/84
== END 2019-06-16 13:17 ==
LOC: ER 15:28
DX: F23 Brief psychotic disorder (principal); F31.9 Bipolar disorder, unspecified; R07.89 Other chest pain; E78.00 Pure hypercholesterolemia, unspecified; I10 Essential (primary) hypertension; E11.9 Type 2 diabetes mellitus without complications
CPT/HCPCS: 93005; 99284; 36415; 84439; 82553; 82962; 80307 ×4; 82550; 80178; 84443; 85025; 80053; 81001; 84484; 84481; 93010; J1815; J3490 ×4

== ENCOUNTER → 2019-08-10 | Emergency (ER) | payer BC ==
[~2019-08-10] MED LIST: ACETAMINOPHEN 325 MG TABLET PO PRN; DILTIAZEM HCL 240 MG CAPSULE.CR PO ONE; GLYCERIN (PEDIATRIC) SUPP.RECT PR PRN; INSULIN GLARGINE,HUM.REC.ANLOG 1,000 UNIT/10 ML VIAL (PYX) SUBCUT SCH; INSULIN GLARGINE,HUM.REC.ANLOG 1,000 UNIT/10 ML VIAL SUBCUT ONE
--- NOTE | 2019-08-10 18:29 | ER Document Report ---
ED General - General Stated Complaint: WEAKNESS Time Seen by Provider: 08/10/19 18:25 Primary Care Provider: GHANSHYAM NGUYỄN MD [NO LOCAL MD] - Follow up as needed TRAVEL OUTSIDE OF THE [place] IN LAST 30 DAYS: No - HPI Notes: Patient is a 54-year-old female that presents to the emergency department for c hief complaint of immobility. Patient was discharged from [facility] after a reported 2-month stay in the hospital. She went home Marshal evening and has been brought her back to the emergency room today because he is unable to provide care at home. He states that she weighs 300 pounds and he cannot lift her or move her even with the Dave lift and bed. He states that he needs her placed in a shelter facility which patient is in agreement with. Patient has no new complaints. Her admission was for respiratory failure from aspiration pneumonia. She was intubated and extubated. Patient also had psychiatric evaluation for what states as a mental break. Currently she states she feels well except for some chronic pain in her legs which she takes Tylenol for. Patient does wear 2 L nasal cannula oxygen at home. Past Medical History: Atrial fibrillation, bipolar, chronic back pain, chronic respiratory failure Past Surgical History: Reviewed in chart Social History: Lives at home with . Denies tobacco and alcohol use Family History: Reviewed and noncontributory for presenting illness Allergies: Reviewed, see documented allergy list. REVIEW OF SYSTEMS: CONSTITUTIONAL : No fever No chills No diaphoresis No recent illness EENT: No vision changes No congestion No sore throat CARDIOVASCULAR: No chest pain No palpitations RESPIRATORY: No shortness of breath No cough No difficulty breathing GASTROINTESTINAL: No abdominal pain No nausea No vomiting No diarrhea GENITOURINARY: No dysuria No hematuria No difficulty urinating MUSCULOSKELETAL: No back pain leg pain No arm pain SKIN: No rashes No lesions LYMPHATIC: No swollen, enlarged glands. NEUROLOGICAL: No lightheadedness No headache No weakness No paresthesias PSYCHIATRIC: No anxiety No depression PHYSICAL EXAMINATION: Vital signs reviewed, nursing noted reviewed. GENERAL: Well-appearing, morbidly obese and in no acute distress. HEAD: Atraumatic, normocephalic. EYES: Eyes appear normal, extraocular movements intact, sclera anicteric, conjunctiva are normal. ENT: nares patent, oropharynx clear without exudates. Moist mucous membranes. NECK: Normal range of motion, supple without lymphadenopathy LUNGS: Breath sounds diminished to auscultation bilaterally and equal. No wheezes rales or rhonchi. HEART: Regular rate and rhythm without murmurs ABDOMEN: Soft, nontender, normoactive bowel sounds. No rebound, guarding, or rigidity. EXTREMITIES: 4/4 strength in dorsiflexion plantarflexion bilaterally, unable to lift extremities off cot. Nontender, good range of motion, 1+ bilateral pretibial edema. NEUROLOGICAL: Oriented x4, no focal neurological deficits. Moves all extremities spontaneously Motor and sensory grossly intact on exam. PSYCH: Normal mood, normal affect. SKIN: Warm, Dry, normal turgor, no rashes or lesions noted on exposed skin - Related Data Allergies/Adverse Reactions: No Known Allergies Allergy (Verified 06/15/19 15:29) Past Medical History - Social History Smoking Status: Unknown if Ever Smoked Family History: Reviewed & Not Pertinent - Past Medical History Cardiac Medical History: Reports: Hx Hypercholesterolemia, Hx Hypertension Endocrine Medical History: Reports: Hx Diabetes Mellitus Type 2 Renal/ Medical History: Denies: Hx Peritoneal Dialysis Psychiatric Medical History: Reports: Hx Bipolar Disorder Physical Exam - Vital signs Vitals: Temp Pulse Resp BP Pulse Ox 98.5 F 92 19 126/63 H 90 L 08/10/19 18:20 08/10/19 18:20 08/10/19 18:20 08/10/19 18:20 08/10/19 18:20 Course - Re-evaluation Re-evalutation: 08/10/19 18:28 Vitals reviewed. Nursing notes reviewed. Patient is stable and has no complaints currently other than being unable to get up and ambulate. She was discharged 2 days ago from another hospital with daily home health. Patient is unable to be cared for by her at home because of her weight and chronic medical conditions. Patient and has been requesting placement at shelter facility. 08/10/19 21:17 CBC shows chronic anemia. BMP is still pending. Plan to monitor patient in the emergency room for social work evaluation in the morning and placement at shelter facility Laboratory 08/10/19 20:17 WBC 6.9 RBC 3.65 L Hgb 10.3 L Hct 31.7 L MCV 87 MCH 28.2 MCHC 32.5 RDW 18.2 H Plt Count 318 Lymph % (Auto) 21.6 [place] % (Auto) 10.7 Eos % (Auto) 2.1 Baso % (Auto) 0.9 Absolute Neuts (auto) 4.5 Absolute Lymphs (auto) 1.5 Absolute Monos (auto) 0.7 Absolute Eos (auto) 0.1 Absolute Basos (auto) 0.1 Seg Neutrophils % 64.7 - Vital Signs Vital signs: Temp Pulse Resp BP Pulse Ox 98.5 F 92 19 126/63 H 97 08/10/19 18:20 08/10/19 18:20 08/10/19 18:20 08/10/19 18:20 08/10/19 20:25 - Laboratory Result Diagrams: 08/10/19 20:17 08/10/19 20:17 Laboratory results interpreted by me: 08/10/19 20:17 RBC 3.65 L Hgb 10.3 L Hct 31.7 L RDW 18.2 H Discharge - Discharge Clinical Impression: Impaired ambulation Condition: Stable Disposition: SNF-Other Referrals: GHANSHYAM NGUYỄN MD [NO LOCAL MD] - Follow up as needed
[2019-08-10 20:41] LABS: ABSOLUTE BASOPHILS # (AUTO) 0.1 10^3/uL (0.0-0.2); ABSOLUTE EOSINOPHILS # (AUTO) 0.1 10^3/uL (0.0-0.6); ABSOLUTE LYMPHOCYTES (AUTO) 1.5 10^3/uL (0.5-4.7); ABSOLUTE MONOCYTES (AUTO) 0.7 10^3/uL (0.1-1.4); ABSOLUTE NEUT (AUTO) 4.5 10^3/uL (1.7-8.2); BASOPHILS % (AUTO) 0.9 % (0-2); EOSINOPHILS % (AUTO) 2.1 % (0-6); HEMATOCRIT 31.7 % (36.0-47.0); HEMOGLOBIN 10.3 g/dL (12.0-15.5); LYMPHOCYTES % (AUTO) 21.6 % (13-45); MEAN CORPUSCULAR HEMOGLOBIN 28.2 pg (27.0-33.4); MEAN CORPUSCULAR HGB CONC 32.5 g/dL (32.0-36.0); MEAN CORPUSCULAR VOLUME 87 fl (80-97); MONOCYTES % (AUTO) 10.7 % (3-13); PLATELET COUNT 318 10^3/uL (150-450); RED BLOOD COUNT 3.65 10^6/uL (3.72-5.28); RED CELL DISTRIBUTION WIDTH 18.2 % (11.5-14.0); SEGMENTED NEUTROPHILS % (AUTO) 64.7 % (42-78); TOTAL CELLS COUNTED % (AUTO) 100 %; WHITE BLOOD COUNT 6.9 10^3/uL (4.0-10.5)
[2019-08-10 21:27] LABS: ANION GAP 8 (5-19); BLOOD UREA NITROGEN 7 mg/dL (7-20); CALCIUM 9.3 mg/dL (8.4-10.2); CARBON DIOXIDE 33 mmol/L (22-30); CHLORIDE 98 mmol/L (98-107); GLUCOSE 139 mg/dL (75-110); POTASSIUM 3.5 mmol/L (3.6-5.0)
[2019-08-11] MEDS: LEVOTHYROXINE SODIUM 0.05 MG TABLET PO SCH (07:23)
[2019-08-11] MEDS: FUROSEMIDE 40 MG TABLET PO SCH (08:09)
[2019-08-11] MEDS: INSULIN LISPRO 100 UNIT/ML 3 ML VIAL SUBCUT SCH ×3 (08:10→17:58)
[2019-08-11] MEDS: POTASSIUM CHLORIDE 10 MEQ CAPSULE.ER PO SCH (10:58)
[2019-08-11] MEDS: MAGNESIUM OXIDE 400 MG TABLET PO SCH (11:00)
[2019-08-11] MEDS: CITALOPRAM HYDROBROMIDE 20 MG TABLET PO SCH (11:01)
[2019-08-11] MEDS: ARIPIPRAZOLE 5 MG TABLET PO SCH (11:01)
[2019-08-11] MEDS: DILTIAZEM HCL 240 MG CAPSULE.CR PO SCH (11:01)
[2019-08-11] MEDS: APIXABAN 5 MG TABLET PO SCH ×2 (11:01→18:58)
[2019-08-11] MEDS: VALPROATE SODIUM SYRUP 250 MG/5 ML UDCUP PO SCH ×3 (12:16→18:58)
[2019-08-11] MEDS: LURASIDONE HCL 40 MG TABLET PO SCH (12:16)
--- NOTE | 2019-08-11 14:01 | ER Document Report ---
Doctor's Note Notes: 08/11/19 13:59 This 54-year-old morbidly obese female patient was brought to the emergency room yesterday due to inability to be cared for at home. She recently spent as much as 2 months in the hospital in [place], and likely became quite deconditioned. An order was placed for physical therapy/occupational therapy evaluation to help with acute rehab placement. 08/11/19 18:37 The patient has been comfortable throughout the day. She has had her medications in her meals. She remains on CPAP with stable vital signs and a pulse ox running 96%.
[2019-08-11] MEDS: PREGABALIN 50 MG CAPSULE PO SCH ×2 (15:06→21:49)
[2019-08-11] MEDS: INSULIN GLARGINE,HUM.REC.ANLOG 1,000 UNIT/10 ML VIAL (PYX) SUBCUT SCH (21:50)
[2019-08-12] MEDS: LEVOTHYROXINE SODIUM 0.05 MG TABLET PO SCH (05:46)
[2019-08-12] MEDS: PREGABALIN 50 MG CAPSULE PO SCH ×3 (05:46→22:19)
[2019-08-12] MEDS: INSULIN LISPRO 100 UNIT/ML 3 ML VIAL SUBCUT SCH ×3 (09:44→19:01)
[2019-08-12] MEDS: FUROSEMIDE 40 MG TABLET PO SCH (09:44)
[2019-08-12] MEDS: APIXABAN 5 MG TABLET PO SCH ×2 (11:34→19:00)
[2019-08-12] MEDS: ARIPIPRAZOLE 5 MG TABLET PO SCH (11:34)
[2019-08-12] MEDS: DILTIAZEM HCL 240 MG CAPSULE.CR PO SCH (11:35)
[2019-08-12] MEDS: MAGNESIUM OXIDE 400 MG TABLET PO SCH (11:35)
[2019-08-12] MEDS: CITALOPRAM HYDROBROMIDE 20 MG TABLET PO SCH (11:35)
[2019-08-12] MEDS: POTASSIUM CHLORIDE 10 MEQ CAPSULE.ER PO SCH (11:36)
[2019-08-12] MEDS: VALPROATE SODIUM SYRUP 250 MG/5 ML UDCUP PO SCH ×3 (11:38→19:00)
[2019-08-12] MEDS: LURASIDONE HCL 40 MG TABLET PO SCH (11:38)
--- NOTE | 2019-08-12 14:39 | ER Document Report ---
Doctor's Note Notes: 08/12/19 14:37 Patient is stable at this time. ELIANA Rey, case management coordinator discussed this case with me. She is attempting to get a hold of the . PHYSICAL EXAMINATION: GENERAL: Obese no acute distress. HEAD: Normocephalic, atraumatic. EYES: PERRL, conjunctiva normal, all extraocular movements intact, sclera shahab cteric ENT: Moist mucous membranes. NECK: Supple, no noticeable swelling, redness, rash. Normal range of motion. LUNGS: Equal breath sounds bilaterally and clear to auscultation. No wheezes rales or rhonchi. CARDIOVASCULAR: S1-S2, regular rate, regular rhythm. Radial pulses 2+, normal. ABDOMEN: Normoactive bowel sounds. Soft, nontender, no guarding, no rebound tenderness, and no masses palpated. PSYCH: Normal mood, normal affect.
[2019-08-12] MEDS: INSULIN GLARGINE,HUM.REC.ANLOG 1,000 UNIT/10 ML VIAL (PYX) SUBCUT SCH (22:19)
[2019-08-13] MEDS: LEVOTHYROXINE SODIUM 0.05 MG TABLET PO SCH (05:54)
[2019-08-13] MEDS: PREGABALIN 50 MG CAPSULE PO SCH ×3 (05:54→23:10)
[2019-08-13] MEDS: FUROSEMIDE 40 MG TABLET PO SCH (07:18)
[2019-08-13] MEDS: INSULIN LISPRO 100 UNIT/ML 3 ML VIAL SUBCUT SCH ×3 (09:57→18:29)
[2019-08-13] MEDS: LURASIDONE HCL 40 MG TABLET PO SCH (10:59)
[2019-08-13] MEDS: ARIPIPRAZOLE 5 MG TABLET PO SCH (10:59)
[2019-08-13] MEDS: APIXABAN 5 MG TABLET PO SCH ×2 (10:59→18:27)
[2019-08-13] MEDS: MAGNESIUM OXIDE 400 MG TABLET PO SCH (10:59)
[2019-08-13] MEDS: CITALOPRAM HYDROBROMIDE 20 MG TABLET PO SCH (10:59)
[2019-08-13] MEDS: POTASSIUM CHLORIDE 10 MEQ CAPSULE.ER PO SCH (11:00)
[2019-08-13] MEDS: VALPROATE SODIUM SYRUP 250 MG/5 ML UDCUP PO SCH ×3 (11:06→18:27)
[2019-08-13] MEDS: DILTIAZEM HCL 240 MG CAPSULE.CR PO SCH (11:09)
--- NOTE | 2019-08-13 16:59 | ER Document Report ---
Doctor's Note Notes: 08/13/19 16:58 Patient is stable at this time. Still awaiting disposition. PHYSICAL EXAMINATION: GENERAL: Obese no acute distress. HEAD: Normocephalic, atraumatic. EYES: PERRL, conjunctiva normal, all extraocular movements intact, sclera nonicteric ENT: Moist mucous membranes. NECK: Supple, no noticeable swelling, redness, rash. Normal range of motion. LUNGS: Equal breath sounds bilaterally and clear to auscultation. No wheezes rales or rhonchi. CARDIOVASCULAR: S1-S2, regular rate, regular rhythm. Radial pulses 2+, normal. ABDOMEN: Normoactive bowel sounds. Soft, nontender, no guarding, no rebound tenderness, and no masses palpated. PSYCH: Normal mood, normal affect.
[2019-08-13] MEDS: INSULIN GLARGINE,HUM.REC.ANLOG 1,000 UNIT/10 ML VIAL SUBCUT SCH (23:12)
[2019-08-14] MEDS: LEVOTHYROXINE SODIUM 0.05 MG TABLET PO SCH (06:16)
[2019-08-14] MEDS: PREGABALIN 50 MG CAPSULE PO SCH ×3 (06:16→21:57)
[2019-08-14] MEDS: INSULIN LISPRO 100 UNIT/ML 3 ML VIAL SUBCUT SCH ×3 (09:17→17:56)
[2019-08-14] MEDS: FUROSEMIDE 40 MG TABLET PO SCH (09:17)
[2019-08-14] MEDS: VALPROATE SODIUM SYRUP 250 MG/5 ML UDCUP PO SCH ×3 (10:28→18:54)
[2019-08-14] MEDS: POTASSIUM CHLORIDE 10 MEQ CAPSULE.ER PO SCH (10:28)
[2019-08-14] MEDS: LURASIDONE HCL 40 MG TABLET PO SCH (10:28)
[2019-08-14] MEDS: DILTIAZEM HCL 240 MG CAPSULE.CR PO SCH (10:29)
[2019-08-14] MEDS: CITALOPRAM HYDROBROMIDE 20 MG TABLET PO SCH (10:29)
[2019-08-14] MEDS: APIXABAN 5 MG TABLET PO SCH ×2 (10:29→18:54)
[2019-08-14] MEDS: MAGNESIUM OXIDE 400 MG TABLET PO SCH (10:29)
[2019-08-14] MEDS: ARIPIPRAZOLE 5 MG TABLET PO SCH (10:29)
--- NOTE | 2019-08-14 20:39 | RADIOLOGY REPORT (SQ) ---
XR CHEST 1 VIEW CLINICAL STATEMENT: dyspnea COMPARISON: None FINDINGS: Heart is moderately enlarged. Mild bibasilar lateral perihilar atelectatic changes. There is no focal lung consolidation or pleural effusion. No evidence of pulmonary edema or pneumothorax. IMPRESSION: No acute cardiopulmonary disease.
[2019-08-14 21:21] LABS: ABSOLUTE EOSINOPHILS # (AUTO) 0.2 10^3/uL (0.0-0.6); ABSOLUTE LYMPHOCYTES (AUTO) 1.8 10^3/uL (0.5-4.7); ABSOLUTE MONOCYTES (AUTO) 0.7 10^3/uL (0.1-1.4); ABSOLUTE NEUT (AUTO) 3.2 10^3/uL (1.7-8.2); BASOPHILS % (AUTO) 0.5 % (0-2); HEMATOCRIT 32.5 % (36.0-47.0); HEMOGLOBIN 10.5 g/dL (12.0-15.5); LYMPHOCYTES % (AUTO) 29.9 % (13-45); MEAN CORPUSCULAR HEMOGLOBIN 28.2 pg (27.0-33.4); MEAN CORPUSCULAR HGB CONC 32.4 g/dL (32.0-36.0); MEAN CORPUSCULAR VOLUME 87 fl (80-97); MONOCYTES % (AUTO) 11.4 % (3-13); PLATELET COUNT 293 10^3/uL (150-450); RED BLOOD COUNT 3.74 10^6/uL (3.72-5.28); RED CELL DISTRIBUTION WIDTH 18.2 % (11.5-14.0); SEGMENTED NEUTROPHILS % (AUTO) 54.2 % (42-78); TOTAL CELLS COUNTED % (AUTO) 100 %; WHITE BLOOD COUNT 5.9 10^3/uL (4.0-10.5)
[2019-08-14 21:37] LABS: ALBUMIN 3.4 g/dL (3.5-5.0); ALKALINE PHOSPHATASE 79 U/L (38-126); ANION GAP 6 (5-19); ASPARTATE AMINO TRANSFERASE 32 U/L (14-36); BILIRUBIN,DIRECT 0.2 mg/dL (0.0-0.4); BILIRUBIN,TOTAL 0.3 mg/dL (0.2-1.3); BLOOD UREA NITROGEN 10 mg/dL (7-20); CALCIUM 9.4 mg/dL (8.4-10.2); CARBON DIOXIDE 38 mmol/L (22-30); CHLORIDE 96 mmol/L (98-107); POTASSIUM 4.4 mmol/L (3.6-5.0)
[2019-08-14 21:49] LABS: GLUCOSE 68 mg/dL (75-110)
[2019-08-14] MEDS: INSULIN GLARGINE,HUM.REC.ANLOG 1,000 UNIT/10 ML VIAL SUBCUT SCH (21:57)
[2019-08-14 22:06] LABS: FREE T4 (FREE THYROXINE) 1.91 ng/dL (0.78-2.19)
[2019-08-14 22:21] LABS: THYROID STIMULATING HORMONE 2.68 uIU/mL (0.47-4.68)
[2019-08-15] MEDS: PREGABALIN 50 MG CAPSULE PO SCH ×2 (06:32→13:13)
[2019-08-15] MEDS: LEVOTHYROXINE SODIUM 0.05 MG TABLET PO SCH (06:32)
[2019-08-15] MEDS: FUROSEMIDE 40 MG TABLET PO SCH (08:10)
[2019-08-15] MEDS: INSULIN LISPRO 100 UNIT/ML 3 ML VIAL SUBCUT SCH ×3 (08:10→17:40)
[2019-08-15] MEDS: POTASSIUM CHLORIDE 10 MEQ CAPSULE.ER PO SCH (09:08)
[2019-08-15] MEDS: APIXABAN 5 MG TABLET PO SCH ×2 (09:08→19:09)
[2019-08-15] MEDS: CITALOPRAM HYDROBROMIDE 20 MG TABLET PO SCH (09:08)
[2019-08-15] MEDS: DILTIAZEM HCL 240 MG CAPSULE.CR PO SCH (09:08)
[2019-08-15] MEDS: MAGNESIUM OXIDE 400 MG TABLET PO SCH (09:08)
[2019-08-15] MEDS: ARIPIPRAZOLE 5 MG TABLET PO SCH (09:08)
[2019-08-15] MEDS: VALPROATE SODIUM SYRUP 250 MG/5 ML UDCUP PO SCH ×3 (09:08→19:10)
[2019-08-15] MEDS: LURASIDONE HCL 40 MG TABLET PO SCH (09:09)
--- NOTE | 2019-08-15 18:46 | ER Document Report ---
Doctor's Note Notes: 08/15/19 18:41 PHYSICAL EXAMINATION: GENERAL: Well-appearing and in no acute distress. HEAD: Atraumatic, normocephalic. EYES: sclera anicteric, conjunctiva are normal. ENT: nares patent, oropharynx clear without exudates. Moist mucous membranes. NECK: Normal range of motion, supple without lymphadenopathy LUNGS: CTAB and equal. No wheezes rales or rhonchi. HEART: Regular rate and rhythm without murmurs ABDOMEN: Soft, morbidly obese, no tenderness. No guarding, no rebound EXTREMITIES: 1+ edema to bilateral lower extremities. No cyanosis. Decreased strength bilaterally, unable to lift leg off the stretcher BACK: Lower lumbar paraspinal tenderness, no step-off or deformity. NEUROLOGICAL: Awake, alert and oriented, no saddle anesthesia PSYCH: Normal mood, normal affect. SKIN: Warm, Dry, dressing in place over stasis wound to right buttock area 08/15/19 18:43 Patient unable to ambulate. Staff states that physical therapy have been working with patient. Patient states that she has been unable to ambulate since her admission at [facility]. RN encouraged to obtain outpatient records. Spoke with shutdown planner who states that they are awaiting a return call from the [facility] for possible placement. Patient appears medically clear for discharge or transfer at this time. Discharge planning states that patient's spouse is unable to care for patient at home due to his work schedule and patient's inability to ambulate. Patient is unable to afford in-home care at this time. Discharge planning states that placement for patient has been complicated due to her mental health history.
[2019-08-15 19:15] LABS: APPEARANCE,URINE CLEAR; BILIRUBIN,URINE NEGATIVE (NEGATIVE); COLOR,URINE YELLOW; GLUCOSE, URINE NEGATIVE (NEGATIVE); KETONES,URINE NEGATIVE (NEGATIVE); LEUKOCYTE ESTERASE,URINE SMALL (NEGATIVE); NITRITE,URINE NEGATIVE (NEGATIVE); PROTEIN,URINE NEGATIVE (NEGATIVE); URINE SPECIFIC GRAVITY 1.004; UROBILINOGEN,URINE NEGATIVE mg/dL (<2.0)
--- NOTE | 2019-08-15 20:49 | ER Document Report ---
Doctor's Note Notes: 08/15/19 20:47 Chart reviewed-patient presents to the emergency department because she had as unable to ambulate at home. is unable to care for her due to her weight. She has a history of bipolar diabetes high cholesterol and hypertension. The provider today contacted social services coordinator and patient is waiting for bed placement. Review of chart shows physical therapy is working with paper patient but she is unable to ambulate. Patient sleeping no distress PHYSICAL EXAMINATION: GENERAL: Patient sleeping and in no acute distress HEAD: Atraumatic, normocephalic. ENT: nares patent, NECK: Normal range of motion, supple LUNGS: Respiratory rate even unlabored HEART: Regular rate
[2019-08-16] MEDS: PREGABALIN 50 MG CAPSULE PO SCH (00:52)
[2019-08-16] MEDS: INSULIN GLARGINE,HUM.REC.ANLOG 1,000 UNIT/10 ML VIAL SUBCUT SCH (00:57)
[2019-08-16 01:12] VITALS: BP 110/59
== END ==
LOC: ER 18:11
DX: R53.1 Weakness (principal); R53.2 Functional quadriplegia; E66.01 Morbid (severe) obesity due to excess calories; M79.604 Pain in right leg; M79.605 Pain in left leg; G89.29 Other chronic pain; Z79.899 Other long term (current) drug therapy; Z99.81 Dependence on supplemental oxygen; I10 Essential (primary) hypertension; E11.9 Type 2 diabetes mellitus without complications
CPT/HCPCS: 36415; 80048; 80053; 80164; 81001; 82962; 83735; 83880; 84439; 84443; 85025; 94660; J1815; J3490

== ENCOUNTER 2020-06-02 20:15 | Emergency (ER) | payer MEDICARE, MEDICAID ==
[2020-06-02 20:28] VITALS: BP 147/64
[2020-06-02] MEDS ORDERED: FENTANYL CITRATE INJ/PF 100 MCG/2 ML AMPUL IV ONE (20:32)
[2020-06-02] MEDS ORDERED: ONDANSETRON HCL INJ/PF 4 MG/2 ML SDV IV ONE (20:32)
--- NOTE | 2020-06-02 20:37 | ER Document Report ---
ED GI/ - General Chief Complaint: Inability to Void Stated Complaint: UNABLE TO VOID Time Seen by Provider: 06/02/20 20:20 Primary Care Provider: LISA KEANE NP [Primary Care Provider] - Follow up as needed Notes: Patient is a 54-year-old female that comes emergency department from home by EMS for chief complaint of painful urination for the past 2 days, abdominal pain radiating around to her back, and abdominal distention. Patient is on home hospice, she has morbid obesity and very limited mobility, she states that she told the hospice nurse about painful urination yesterday and she was started on Bactrim, she has had 2 doses but has not had improvement in her symptoms. Patient was reportedly sent over for a Mares and has had these in the past. She also has a history of kidney stones. She states she has not had a bowel movement about 4 days. She is on oxycodone and was recently switched to morph ine. No fever, vomiting, or other complaints reported. is at bedside. Past medical history includes atrial fibrillation on Xarelto, type 2 diabetes, chronic respiratory failure on as needed home O2, chronic back pain, bipolar disorder. TRAVEL OUTSIDE OF THE [place] IN LAST 30 DAYS: No - Related Data Allergies/Adverse Reactions: amoxicillin [From Augmentin] Allergy (Verified 08/13/19 09:27) clavulanic acid [From Augmentin] Allergy (Verified 08/13/19 09:27) Past Medical History - General Information source: Patient - Social History Smoking Status: Unknown if Ever Smoked Lives with: Family Family History: Reviewed & Not Pertinent - Past Medical History Cardiac Medical History: Reports: Hx Hypercholesterolemia, Hx Hypertension Endocrine Medical History: Reports: Hx Diabetes Mellitus Type 2 - and neuropathy Renal/ Medical History: Denies: Hx Peritoneal Dialysis Psychiatric Medical History: Reports: Hx Bipolar Disorder Review of Systems - Review of Systems Constitutional: See HPI EENT: No symptoms reported Cardiovascular: No symptoms reported Respiratory: No symptoms reported Gastrointestinal: See HPI Genitourinary: See HPI Female Genitourinary: No symptoms reported Musculoskeletal: No symptoms reported Skin: No symptoms reported Hematologic/Lymphatic: No symptoms reported Neurological/Psychological: See HPI Physical Exam - Vital signs Vitals: Resp Pulse Ox 15 95 06/02/20 20:19 06/02/20 20:19 - Notes Notes: GENERAL: Alert, interacts well. No acute distress. HEAD: Normocephalic, atraumatic. EYES: Pupils equal, round, and reactive to light. Extraocular movements intact. ENT: Oral mucosa moist, tongue midline. Oropharynx unremarkable. Airway patent. NECK: Full range of motion. Supple. Trachea midline. No lymphadenopathy. LUNGS: Clear to auscultation bilaterally, no wheezes, rales, or rhonchi. No respiratory distress. Non-tender chest wall. HEART: Regular rate and rhythm. No murmur ABDOMEN: No overt tenderness. Questionable mild distention, no rigidity or guarding. EXTREMITIES: Moves all 4 extremities spontaneously. No edema, normal radial and dorsalis pedis pulses bilaterally. No cyanosis. BACK: no cervical, thoracic, lumbar midline tenderness. No saddle anesthesia, normal distal neurovascular exam. NEUROLOGICAL: Alert and oriented to person, place, and events. Normal speech. Cranial nerves II through XII grossly intact. PSYCH: Normal affect, normal mood. SKIN: Warm, dry, normal turgor. No rashes or lesions noted. Course - Re-evaluation Re-evalutation: Patient is alert, conversational, smiling, actually well-appearing. Vital signs unremarkable. Patient has a soft abdomen, clear lungs, and she does not have any current complaints. Reportedly she is at her mental baseline by her who is at bedside. Patient only speaks limited Mongolian and is interpreting mainly. Urine is unremarkable, patient will continue Bactrim. CBC unremarkable, chemistry shows slightly low potassium which was supplemented, bicarbonate is elevated at 42. Venous blood gas was checked and shows both hypercarbia but also elevated bicarbonate, pH is normal, this appears to be chronic respiratory failure with compensation most likely. Patient's CO2 on chemistry most recently was 38 which is very similar, no VBG to compare to. CAT scan does not show any acute findings, no passing stone, does show what appears to be constipation per my read. Discussed with Dr. Green. After reviewing records, recommendation is that this is most likely chronic in regards to her hypercarbia, she can be treated for constipation, discharged home, follow-up with her provider and urology for her Mares which has been provided, and return for any worsening symptoms which I discussed with in detail. Patient and state understanding and agreement, stable at time of discharge. - Vital Signs Vital signs: Temp Pulse Resp BP Pulse Ox 98 F 13 147/64 H 95 06/02/20 20:20 06/03/20 01:00 06/02/20 20:20 06/03/20 01:00 - Laboratory Result Diagrams: 06/02/20 21:26 06/02/20 21:26 Laboratory results interpreted by me: 06/02/20 06/02/20 06/02/20 21:26 21:26 21:26 RBC 3.66 L Hgb 10.2 L Hct 30.4 L RDW 16.2 H VBG pCO2 VBG HCO3 Sodium 133.3 L Potassium 3.1 L Chloride 84 L Carbon Dioxide 42 H* BUN 6 L Creatinine 0.41 L Glucose 116 H Urine Ketones TRACE H 06/02/20 23:14 RBC Hgb Hct RDW VBG pCO2 78.2 H* VBG HCO3 42.2 H Sodium Potassium Chloride Carbon Dioxide BUN Creatinine Glucose Urine Ketones Discharge - Discharge Clinical Impression: Dysuria, Difficulty urinating, Hypokalemia Abdominal pain Qualifiers: Abdominal location: generalized Qualified Code(s): R10.84 - Generalized abdo thelma pain Condition: Stable Disposition: HOME, SELF-CARE Additional Instructions: The imaging shows constipation, her potassium was slightly low and she was given a dose of this tonight, no other concerning findings are noted. Take the stool softener prescribed daily. Continue the Bactrim antibiotic, follow-up with uro logy referral for management of her urinary symptoms and her Mares with her urinary retention. Call the listed referral tomorrow for close follow-up and additional management. Return for any worsening symptoms including fever, vomiting, change in mental status, or any other concerning symptoms. [facility] [address] [place], [place] [address] [facility] [address] [place], [place] [id number] Prescriptions: Polyethylene Glycol 3350 [Miralax Powder 17 gm/Packet] 1 packet PO DAILY PRN #1 pkg PRN Reason: Referrals: LISA KEANE, MASS SPECTROMETRY MANAGER [Primary Care Provider] - Follow up as needed
--- NOTE | 2020-06-02 21:16 | RADIOLOGY REPORT (SQ) ---
CT abdomen and pelvis without contrast on 06/02/2020 at 8:44 PM CLINICAL INDICATION: Right-sided back pain, history of kidney stones TECHNIQUE: Multiple axial images are obtained throughout the abdomen and pelvis without the administration of contrast. This exam was performed according to our departmental dose-optimization program, which includes automated exposure control, adjustment of the mA and/or kV according to patient size and/or use of iterative reconstruction technique. Total DLP is 941.52 mGy*cm. COMPARISON: None FINDINGS: Abdomen: There is minimal basilar atelectasis and/or scarring. There is some high density in the gallbladder raising a question of gallstones or sludge, ultrasound could better evaluate. There are no renal or ureteral stones and no hydronephrosis. The unenhanced solid abdominal organs are otherwise unremarkable. There is no abdominal adenopathy. Mild anasarca is noted in the subcutaneous tissues. There is no free fluid or free air within the abdomen. The abdominal portion of the GI tract is unremarkable. Pelvis: There is a small umbilical hernia containing only fat. No free fluid is noted in the pelvis. Pelvic organs appear unremarkable by CT. Pelvic portion of the GI tract including the appendix is unremarkable. Degenerative changes are noted in the spine. IMPRESSION: 1. Possible stones or sludge in the gallbladder, ultrasound could better evaluate. 2. No other acute abnormality.
[2020-06-02 21:49] LABS: ABSOLUTE EOSINOPHILS # (AUTO) 0.1 10^3/uL (0.0-0.6); ABSOLUTE LYMPHOCYTES (AUTO) 2.1 10^3/uL (0.5-4.7); ABSOLUTE MONOCYTES (AUTO) 0.8 10^3/uL (0.1-1.4); ABSOLUTE NEUT (AUTO) 3.5 10^3/uL (1.7-8.2); BASOPHILS % (AUTO) 0.3 % (0-2); EOSINOPHILS % (AUTO) 1.1 % (0-6); HEMATOCRIT 30.4 % (36.0-47.0); HEMOGLOBIN 10.2 g/dL (12.0-15.5); LYMPHOCYTES % (AUTO) 31.9 % (13-45); MEAN CORPUSCULAR HGB CONC 33.7 g/dL (32.0-36.0); MEAN CORPUSCULAR VOLUME 83 fl (80-97); MONOCYTES % (AUTO) 12.1 % (3-13); PLATELET COUNT 270 10^3/uL (150-450); RED BLOOD COUNT 3.66 10^6/uL (3.72-5.28); RED CELL DISTRIBUTION WIDTH 16.2 % (11.5-14.0); SEGMENTED NEUTROPHILS % (AUTO) 54.6 % (42-78); TOTAL CELLS COUNTED % (AUTO) 100 %; WHITE BLOOD COUNT 6.5 10^3/uL (4.0-10.5)
[2020-06-02 22:06] LABS: APPEARANCE,URINE CLEAR; BILIRUBIN,URINE NEGATIVE (NEGATIVE); COLOR,URINE YELLOW; GLUCOSE, URINE NEGATIVE (NEGATIVE); KETONES,URINE TRACE mg/dL (NEGATIVE); LEUKOCYTE ESTERASE,URINE NEGATIVE (NEGATIVE); NITRITE,URINE NEGATIVE (NEGATIVE); PROTEIN,URINE NEGATIVE (NEGATIVE); UROBILINOGEN,URINE NEGATIVE mg/dL (<2.0)
[2020-06-02 22:15] LABS: ALBUMIN 3.6 g/dL (3.5-5.0); ALKALINE PHOSPHATASE 66 U/L (38-126); ASPARTATE AMINO TRANSFERASE 19 U/L (14-36); BILIRUBIN,TOTAL 0.3 mg/dL (0.2-1.3); BLOOD UREA NITROGEN 6 mg/dL (7-20); CALCIUM 9.2 mg/dL (8.4-10.2); CHLORIDE 84 mmol/L (98-107); GLUCOSE 116 mg/dL (75-110); POTASSIUM 3.1 mmol/L (3.6-5.0); TOTAL PROTEIN 7.2 g/dL (6.3-8.2)
[2020-06-02 22:23] LABS: ANION GAP 7 (5-19)
[2020-06-02 22:29] LABS: CARBON DIOXIDE 42 mmol/L (22-30)
[2020-06-02] MEDS ORDERED: POTASSIUM CHLORIDE 10 MEQ TABLET.ER PO ONE (22:44)
[2020-06-02 23:19] LABS: VENOUS BLOOD BASE EXCESS 13.6 mmol/L; VENOUS BLOOD HCO3 42.2 mmol/L (20-32); VENOUS BLOOD PH 7.35 (7.30-7.42)
[2020-06-02 23:21] LABS: VENOUS BLOOD PCO2 78.2 mmHg (35-63)
== END 2020-06-03 02:08 | disposition home or self-care (01) ==
LOC: ER 20:15
DX: R30.0 Dysuria (principal); E87.6 Hypokalemia; K59.00 Constipation, unspecified; R10.84 Generalized abdominal pain; E66.01 Morbid (severe) obesity due to excess calories; I10 Essential (primary) hypertension; M54.9 Dorsalgia, unspecified; G89.29 Other chronic pain; E11.40 Type 2 diabetes mellitus with diabetic neuropathy, unspecified; J96.10 Chronic respiratory failure, unspecified whether with hypoxia or hypercapnia; I48.91 Unspecified atrial fibrillation; Z87.442 Personal history of urinary calculi; Z79.01 Long term (current) use of anticoagulants; Z88.0 Allergy status to penicillin
CPT/HCPCS: 99284; 96374; 96375; 36415; 83690; 85025; 80053; 81001; 82803; 74176; J3010; J2405; A9270

== ENCOUNTER 2020-07-06 15:00 | Emergency (ER) | payer MEDICARE, MEDICAID ==
[2020-07-06 17:36] LABS: ABSOLUTE LYMPHOCYTES (AUTO) 1.8 10^3/uL (0.5-4.7); ABSOLUTE MONOCYTES (AUTO) 0.7 10^3/uL (0.1-1.4); BASOPHILS % (AUTO) 0.5 % (0-2); EOSINOPHILS % (AUTO) 0.6 % (0-6); HEMATOCRIT 40.6 % (36.0-47.0); HEMOGLOBIN 13.4 g/dL (12.0-15.5); LYMPHOCYTES % (AUTO) 23.6 % (13-45); MEAN CORPUSCULAR HEMOGLOBIN 27.6 pg (27.0-33.4); MEAN CORPUSCULAR HGB CONC 33.1 g/dL (32.0-36.0); MEAN CORPUSCULAR VOLUME 84 fl (80-97); MONOCYTES % (AUTO) 9.7 % (3-13); PLATELET COUNT 425 10^3/uL (150-450); RED BLOOD COUNT 4.86 10^6/uL (3.72-5.28); RED CELL DISTRIBUTION WIDTH 17.1 % (11.5-14.0); SEGMENTED NEUTROPHILS % (AUTO) 65.6 % (42-78); TOTAL CELLS COUNTED % (AUTO) 100 %; WHITE BLOOD COUNT 7.7 10^3/uL (4.0-10.5)
[2020-07-06 17:41] LABS: ALBUMIN 4.2 g/dL (3.5-5.0); ALKALINE PHOSPHATASE 111 U/L (38-126); ASPARTATE AMINO TRANSFERASE 23 U/L (14-36); BILIRUBIN,DIRECT 0.4 mg/dL (0.0-0.4); BILIRUBIN,TOTAL 0.7 mg/dL (0.2-1.3); BLOOD UREA NITROGEN 3 mg/dL (7-20); CALCIUM 10.1 mg/dL (8.4-10.2); GLUCOSE 139 mg/dL (75-110); TOTAL PROTEIN 8.1 g/dL (6.3-8.2)
[2020-07-06 17:51] LABS: ANION GAP 18 (5-19); CARBON DIOXIDE 21 mmol/L (22-30); CHLORIDE 102 mmol/L (98-107)
--- NOTE | 2020-07-06 18:00 | ER Document Report ---
Entered by MARCOS LEONARD SCRIBE 07/06/20 [id number] Acting as scribe for:SATISH SHAH, DO ED Psych Disorder / Suicide - General Chief Complaint: Psych Problem Stated Complaint: MENTAL STATUS Primary Care Provider: LISA KEANE NP [Primary Care Provider] - 07/07/20 Mode of Arrival: Ambulatory Information source: Patient Notes: This 55 year old female patient that presents to the emergency department today with complaints of altered mental status. Patient is mumbling and really unable to provide any meaningful history. Collateral information was obtained through the (Varinder Serra [phone]). mentions that the patient has been having a breakdown for the last month. He mentions that she has not been eating, drinking, not taking care of her self, or not taking her medication for the last month. Dr. Enriquez states that she is familiar with this patient and APS and psychiatry have been involved in this patient's care as recently as this week. Everyone is in agreement that this patient needs placement at a penitentiary facility but the refuses this, mentioning that he is unemployed and unable to work and his only source of income is her disability check. TRAVEL OUTSIDE OF THE [place] IN LAST 30 DAYS: No - Related Data Allergies/Adverse Reactions: amoxicillin [From Augmentin] Allergy (Verified 08/13/19 09:27) clavulanic acid [From Augmentin] Allergy (Verified 08/13/19 09:27) Past Medical History - General Information source: [facility] Records Cannot obtain history due to: Altered mental status - Social History Smoking Status: Unknown if Ever Smoked Family History: Reviewed & Not Pertinent - Past Medical History Cardiac Medical History: Reports: Hx Hypercholesterolemia, Hx Hypertension Pulmonary Medical History: Reports: Hx COPD Endocrine Medical History: Reports: Hx Diabetes Mellitus Type 2 - neuropothy, Hx Hypothyroidism Psychiatric Medical History: Reports: Hx Bipolar Disorder Surgical Hx: Negative Review of Systems - Review of Systems -: Yes ROS unobtainable due to patient's medical condition - AMS Physical Exam - Vital signs Vitals: Temp Pulse BP Pulse Ox 98.5 F 126 H 153/90 H 100 07/06/20 15:17 07/06/20 15:17 07/06/20 15:17 07/06/20 15:17 - Notes Notes: Physical Exam: General: Alert, mumbling in cayman islander and montserratian. HEENT: Normocephalic. Atraumatic. PERRLA. Extraocular movements intact. Oropharynx clear. Neck: Supple. Respiratory: No respiratory distress. Abdominal: Obese. No distension. Extremities: Moves all four extremities. Neurological: Mumbled speech. Skin: Warm. Dry. Normal color. Course - Re-evaluation Re-evalutation: 07/06/20 20:08 MDM 55 year old female with knonw bipolar disorder, montserratian speaking is here with poor functional status at home. She is much the same it appears as her baseline. APS has been involved and Dr. Enriquez and the psychiatry team has also been involved. I have had a discussion with Dr. Enriquez today as she is very familiar with this pt and the social situation. She has been reccomended more than once for SNF but the is resistant to this instead choosing to care for his at home. Home hospice is involved and helping with managing her care. Her K is a bit low and we will discharge her to follow up as an out patient closely tomorrow. Rx for potassium given. - Vital Signs Vital signs: Temp Pulse Resp BP Pulse Ox 98.3 F 112 H 20 147/92 H 100 07/06/20 19:26 07/06/20 19:26 07/06/20 19:26 07/06/20 19:26 07/06/20 19:26 - Laboratory Result Diagrams: 07/06/20 16:51 07/06/20 16:51 Laboratory results interpreted by me: 07/06/20 07/06/20 07/06/20 16:51 16:51 16:51 RDW 17.1 H Potassium 3.0 L* Carbon Dioxide 21 L BUN 3 L Creatinine 0.41 L Glucose 139 H Salicylates < 1.0 L Acetaminophen < 10 L - EKG Interpretation by Me EKG shows normal: Sinus rhythm - Sinus Tachy 110 BPM nl axis IVCD repolarization abnormality no st elevation or depression my interpretation. Rate: Tachycardia Discharge - Discharge Clinical Impression: Hypokalemia Bipolar disorder Qualifiers: Active/Remission status: remission status unspecified Qualified Code(s): F31.9 - Bipolar disorder, unspecified Condition: Stable Disposition: HOME, SELF-CARE Instructions: Bipolar Disorder ([facility]), Hypokalemia ([facility]), Weakness ([facility]) Additional Instructions: See your doctor in follow up. Call in the morning. Return here for thoughts of self harm or other problems or concerns including but not limited to fever or shortness of breath. The potassium was a bit low and should be rechecked in the next week or two. Referrals: LISA KEANE, DEMOLITION EXPERT [Primary Care Provider] - 07/07/20 I personally performed the services described in the documentation, reviewed and edited the documentation which was dictated to the scribe in my presence, and it accurately records my words and actions.
[2020-07-06 18:35] LABS: ACETAMINOPHEN < 10 ug/mL (10-30); ALCOHOL < 10 mg/dL (NONE DETECTED); SALICYLATE < 1.0 mg/dL (2.0-20.0)
--- NOTE | 2020-07-06 18:36 | ER Document Report ---
Doctor's Note Notes: 07/06/20 18:25 Completed a chart review to include reason for new admit. Reason for admit according to triage and physician notes appears to be consistent with presentation at discharge on 06/28/2020. During Patient's last visit to [facility] and subsequent discharge, she was recommended for a higher level of care (SNF) but her reported he would not send her to that level of care or anywhere outside the home because she was his "only source of income" since he does not work. He was advised at that time it was inappropriate to keep the Patient from needed level of care for his benefit. APS was contacted but outcome was unknown. was also advised that it although it was recognized he was admitting to caregiver burnout, he had just brought the Patient home from [facility]osp[facility] prior to admission and was reminded that ED admissions were not considered respite and Patient could not and would not be placed psychiatrically for baseline behavior and psychiatric facilities could not/would not take her if she was not independent in her daily living skills. At this time, Hospice continues to be involved in the Patient's care with home health continuing to come to home daily. Spoke with Attending ED Provider on today's date advising him of Patient's background and efforts taken for the Patient on her last admission. Advised him of the above information and that from a psychiatric standpoint there was little to be done that could improve her situation as inpatient psychiatric care was not appropriate nor was there a facility that could take her given her lack if independence. In addition, advised Physician another APS report would be made given the 's proclivity to bring his to the ED versus admitting her to an appropriate level of care that has been recommended by multiple professionals and providers. Thus, Patient is clear from acute psychiatric services. ED Provider in agreement with recommendation and disposition and indicated he would treat her from a medical standpoint and forgo a formal psychiatric consultation.
[2020-07-06] MEDS ORDERED: POTASSIUM CHLORIDE 20 MEQ PACKET PO ONE (19:00)
[2020-07-06 23:53] VITALS: BP 140/83
--- NOTE | 2020-07-07 10:28 | EKG REPORT ---
SEVERITY:- ABNORMAL ECG - SINUS TACHYCARDIA NONSPECIFIC INTRAVENTRICULAR CONDUCTION DELAY ST DEPRESSION, CONSIDER ISCHEMIA, ANT-LAT LDS : Confirmed by: Kimberly Chao MD 07-Jul-2020 10:28:15
== END 2020-07-06 23:46 | disposition home or self-care (01) ==
LOC: ER 15:00
DX: F31.9 Bipolar disorder, unspecified (principal); E87.6 Hypokalemia; R41.82 Altered mental status, unspecified; Z88.0 Allergy status to penicillin; Z88.8 Allergy status to other drugs, medicaments and biological substances; I10 Essential (primary) hypertension; J44.9 Chronic obstructive pulmonary disease, unspecified; E11.40 Type 2 diabetes mellitus with diabetic neuropathy, unspecified
CPT/HCPCS: 93005; 36415; 80307 ×3; 84443; 85025; 80053; 93010; J3490

== ENCOUNTER 2020-07-17 11:12 | Emergency (ER) | payer MEDICARE, MEDICAID ==
[2020-07-17] MEDS ORDERED: HALOPERIDOL LACTATE INJ 5 MG/1 ML VIAL IM ONE ×2 (11:50→12:43)
[2020-07-17 12:05] LABS: VENOUS BLOOD BASE EXCESS 2.5 mmol/L; VENOUS BLOOD HCO3 27.4 mmol/L (20-32); VENOUS BLOOD PCO2 43.2 mmHg (35-63); VENOUS BLOOD PH 7.42 (7.30-7.42)
[2020-07-17 12:08] LABS: ABSOLUTE EOSINOPHILS # (AUTO) 0.1 10^3/uL (0.0-0.6); ABSOLUTE LYMPHOCYTES (AUTO) 2.3 10^3/uL (0.5-4.7); ABSOLUTE MONOCYTES (AUTO) 0.8 10^3/uL (0.1-1.4); ABSOLUTE NEUT (AUTO) 6.2 10^3/uL (1.7-8.2); BASOPHILS % (AUTO) 0.4 % (0-2); EOSINOPHILS % (AUTO) 0.6 % (0-6); HEMOGLOBIN 12.4 g/dL (12.0-15.5); LYMPHOCYTES % (AUTO) 24.3 % (13-45); MEAN CORPUSCULAR HEMOGLOBIN 27.5 pg (27.0-33.4); MEAN CORPUSCULAR HGB CONC 32.7 g/dL (32.0-36.0); MEAN CORPUSCULAR VOLUME 84 fl (80-97); MONOCYTES % (AUTO) 8.7 % (3-13); PLATELET COUNT 308 10^3/uL (150-450); RED BLOOD COUNT 4.52 10^6/uL (3.72-5.28); RED CELL DISTRIBUTION WIDTH 17.3 % (11.5-14.0); TOTAL CELLS COUNTED % (AUTO) 100 %; WHITE BLOOD COUNT 9.3 10^3/uL (4.0-10.5)
[2020-07-17] MEDS ORDERED: LORAZEPAM INJ 2 MG/1 ML VIAL IM ONE ×2 (12:13→13:36)
[2020-07-17 12:15] LABS: INTERNATIONAL RATION (INR) 1.07; PROTHROMBIN TIME 14.1 SEC (11.4-15.4)
[2020-07-17 12:16] LABS: PARTIAL THROMBOPLASTIN TIME 32.4 SEC (23.5-35.8)
[2020-07-17 12:24] LABS: ALBUMIN 3.6 g/dL (3.5-5.0); ALKALINE PHOSPHATASE 85 U/L (38-126); ANION GAP 15 (5-19); ASPARTATE AMINO TRANSFERASE 45 U/L (14-36); BILIRUBIN,DIRECT 0.5 mg/dL (0.0-0.4); BLOOD UREA NITROGEN 4 mg/dL (7-20); CARBON DIOXIDE 28 mmol/L (22-30); CHLORIDE 96 mmol/L (98-107); GLUCOSE 115 mg/dL (75-110); POTASSIUM 3.5 mmol/L (3.6-5.0)
[2020-07-17] MEDS: NORMAL SALINE 1000 ML 1,000 ML IV PRN ×2 (13:00→14:05)
[2020-07-17 14:43] LABS: APPEARANCE,URINE CLOUDY; BILIRUBIN,URINE NEGATIVE (NEGATIVE); COLOR,URINE YELLOW; GLUCOSE, URINE NEGATIVE (NEGATIVE); KETONES,URINE 80 mg/dL (NEGATIVE); PROTEIN,URINE 30 mg/dL (NEGATIVE); URINE SPECIFIC GRAVITY 1.011
[2020-07-17] MEDS ORDERED: CEFTRIAXONE INJ 1000 MG VIAL IV ONE (15:02)
--- NOTE | 2020-07-17 15:36 | PSYCHOLOGICAL NOTE ---
Psych Note - Psych Note Date seen by psych provider: 07/17/20 Time seen by psych provider: 15:17 Psych Note: Reason for Consult: Medication recommendations Pt arrives via ems. ems states that they were called to the pts home by her home health nurse. per the nurse and the pt is still altered (for about a month) and is being extremely aggressive today. Chart Review: It is noted the patient is refusing medications (please use Depakote sprinkles into food or use Depakene). It is noted labs were conducted yesterday; Potassium has lowered from previous lab report: low levels of potassium can affect psychologically; ie Mental lethargy, depression, mood swings, psychosis, disorientation and confusion. Clinical Presentation: Altered Mental Status Low Potassium UTI History of Bipolar since 1999 Stroke last year Medication recommendations per [facility]'s contracted psychiatrist Dr Abdoulaye ARRIAGA are as follows: Please Discontinue home medications of Latuda, Abilify, and Trazadone Depakote 500MG Sprinkles twice a day- Please mix into food or use Depakene if needed Risperdal 0.25MG twice a day as needed Impression/Plan: Patient is cleared from acute psychiatric services. Patient is admitted to [facility] hospice services and patient is unable to complete her daily living skills independently. At this time, Hospice continues to be involved in the Patient's care with home health continuing to come to home daily. Inpatient psychiatric treatment would not be appropriate. Medication recommendations have been provided. Clinician notes, patient's outpatient providers have not followed recommendations and have continued to prescribe previous medications of Latuda, Abilify and Trazdone. Given stroke last year, providers that want to address Bipolar Symptoms (confusion, irritability, psychosis etc) are asked to also be mindful that after a stroke, antipsychotics and benzodiazepines can cause and/or exacerbate Bipolar symptoms Dr. Enriquez was consulted on the care and management of this patient; ED Physician is in agreement with recommendations.
--- NOTE | 2020-07-17 18:54 | ER Document Report ---
ED General - General Chief Complaint: Altered Mental Status Stated Complaint: ALTERED MENTAL STATUS Time Seen by Provider: 07/17/20 11:43 Primary Care Provider: LISA KEANE CULINARY ART TEACHER [Primary Care Provider] - Follow up as needed TRAVEL OUTSIDE OF THE U.S. IN LAST 30 DAYS: No - HPI Notes: Chief complaint: Agitation History of present illness: 55-year-old female well-known to this ED and to me personally with history of severe bipolar disorder and previous CVA currently on hospice care at home sent to the ED today by home health nurse because of persistent agitation and aggressive behavior present for over 1 month. Patient is and speaks minimal Slovak. She arrived here today via EMS. Patient has had chronic/recurrent urinary tract infections. It is noted the pat ient is refusing medications. Patient is on home hospice care at this time. [place] been [place] [facility] [place] and declined a bed which would was offered to them within the last 2 weeks stating that he is not willing for her to go to a [place] [facility] [place]. Additional history today has been obtained from the patient's . Clinician notes, patient's outpatient providers have not followed recommendations and have continued to prescribe previous medications of Latuda, Abilify and Trazdone. Given stroke last year, providers that want to address Bipolar Symptoms (confusion, irritability, psychosis etc) are asked to also be mindful that after a stroke, antipsychotics and benzodiazepines can cause and/or exacerbate Bipolar symptoms Dr. Enriquez was previously consulted on the care and management of this patient; ED Physician is in agreement with [facility] ommendations. Previous medication recommendations per [facility]'s contracted psychiatrist Dr Abdoulaye ARRIAGA are as follows: Please Discontinue home medications of Latuda, Abilify, and Trazadone Depakote 500MG Sprinkles twice a day- Please mix into food or use Depakene if needed Risperdal 0.25MG twice a day as needed - Related Data Allergies/Adverse Reactions: amoxicillin [From Augmentin] Allergy (Verified 08/13/19 09:27) clavulanic acid [From Augmentin] Allergy (Verified 08/13/19 09:27) Past Medical History - General Cannot obtain history due to: Altered mental status - Social History Smoking Status: Former Smoker Family History: Reviewed & Not Pertinent - Past Medical History Cardiac Medical History: Reports: Hx Hypercholesterolemia, Hx Hypertension Denies: Hx Coronary Artery Disease, Hx Heart Attack Pulmonary Medical History: Reports: Hx COPD Neurological Medical History: Reports: Hx Cerebrovascular Accident Endocrine Medical History: Reports: Hx Diabetes Mellitus Type 2 - neuropothy, Hx Hypothyroidism Renal/ Medical History: Denies: Hx Peritoneal Dialysis Psychiatric Medical History: Reports: Hx Bipolar Disorder Review of Systems - Review of Systems -: Yes ROS unobtainable due to patient's medical condition Physical Exam - Vital signs Vitals: Pulse Ox 96 07/17/20 11:26 - Notes Notes: GENERAL: Obese middle-age female intermittently crying and yelling. I am able to briefly engage her in conversation in Kyrgyz and as soon as I divert my attention to leave the room she starts yelling again. This is her long-term behavioral pattern on multiple prior visits per nursing staff. SKIN: Good turgor no rashes. HEAD: Normocephalic atraumatic. EYES: PERRLA. EOMI. Conjunctivae and sclerae clear. EARS: CANALS AND TMS CLEAR. NOSE: CLEAR. MOUTH: Moist mucosa. Good dentition. No stridor or edema. No drooling. NECK: Supple. No masses or thyromegaly. No adenopathy. Carotids 2+ without bruits. No JVD. BACK: Symmetrical without tenderness. CHEST: Respirations unlabored. Breath sounds clear and symmetrical. HEART: Tachycardic regular rhythm. No murmur gallop or rub. ABDOMEN: Obese. Soft nontender without masses, organomegaly or rebound. Bowel sounds normally active. No bruits. GENITALIA: Deferred. EXTREMITIES: No edema. No calf tenderness. Cap refill less than 1.5 seconds. Dorsalis pedis and posterior tibial pulses 3+ and symmetrical. NEUROLOGICAL: Patient is oriented to person and place but not time as per her baseline. She is nonambulatory. She is moving all 4 extremities symmetrically at this time. PSYCHIATRIC: Agitated and intermittently fighting with nursing staff. Course - Re-evaluation Re-evalutation: 07/17/20 18:58 Patient did not have a fever here. Her chest x-ray showed no infiltrate. Her EKG shows a sinus tachycardia only. Catheterized urine specimen shows persist ent urinary tract infection. She has had a recent MRI of the brain and I do not see any new focal neurologic findings. I have given her some Ativan and Haldol and we had to briefly use restraints for the patient. I gave her some IV Rocephin and hydrated her with IV normal saline. Patient was seen by behavioral team and they recommended getting her back on Depakote sprinkles as per previous recommendation. I will also prescribe oral Keflex for her. She is currently on hospice care and I do not see anything different to offer as an inpatient service at this point. We also note patient's has recently [place] [facility] [place]. Nursing staff spoke with him again today and he is insistent that he does not want her to go to a [place] [facility] [place]. He is willing to take her back home and we will therefore arrange transportation back to her home. - Vital Signs Vital signs: Temp Pulse Resp BP Pulse Ox 98.8 F 21 H 103/54 L 94 07/17/20 14:40 07/17/20 17:01 07/17/20 17:01 07/17/20 17:01 - Laboratory Result Diagrams: 07/17/20 11:54 07/17/20 11:54 Laboratory results interpreted by me: 07/17/20 07/17/20 07/17/20 11:54 11:54 14:25 RDW 17.3 H Potassium 3.5 L Chloride 96 L BUN 4 L Creatinine 0.35 L Glucose 115 H Direct Bilirubin 0.5 H AST 45 H Urine Protein 30 H Urine Ketones 80 H Urine Blood SMALL H Urine Urobilinogen 4.0 H Leukocyte Esterase Rfl LARGE H Discharge - Discharge Clinical Impression: Hospice care patient, Bipolar disorder, Old CVA Urinary tract infection Qualifiers: Urinary tract infection type: site unspecified Hematuria presence: without hematuria Qualified Code(s): N39.0 - Urinary tract infection, site not specified Condition: Stable Disposition: HOME, SELF-CARE Instructions: Cephalexin ([facility]) Additional Instructions: Restart Depakote sprinkles as previously recommended. New prescription provided for Keflex for treatment of urinary tract infection. Discontinue Latuda, Abilify and Trazdone. Given stroke last year, providers that want to address Bipolar Symptoms (confusion, irritability, psychosis etc) are asked to also be mindful that after a stroke, antipsychotics and benzodiazepines can cause and/or exacerbate Bipolar symptoms Continue home hospice care with [facility]. Prescriptions: Cephalexin Monohydrate [Keflex 500 mg Capsule] 500 mg PO Q6H 10 Days #40 capsule Referrals: LISA KEANE NP [Primary Care Provider] - Follow up as needed
[2020-07-17 19:36] VITALS: BP 121/64
--- NOTE | 2020-07-17 20:44 | EKG REPORT ---
SEVERITY:- ABNORMAL ECG - SINUS TACHYCARDIA BORDERLINE INFERIOR Q WAVES REPOL ABNRM SUGGESTS ISCHEMIA, DIFFUSE LEADS : Confirmed by: Andrei Davidson MD 17-Jul-2020 20:43:19
== END 2020-07-17 19:37 | disposition home or self-care (01) ==
LOC: ER 11:12
DX: N39.0 Urinary tract infection, site not specified (principal); F31.9 Bipolar disorder, unspecified; Z86.73 Personal history of transient ischemic attack (TIA), and cerebral infarction without residual deficits; R41.82 Altered mental status, unspecified; R45.1 Restlessness and agitation; Z88.0 Allergy status to penicillin; Z88.8 Allergy status to other drugs, medicaments and biological substances; Z87.891 Personal history of nicotine dependence; I10 Essential (primary) hypertension; J44.9 Chronic obstructive pulmonary disease, unspecified
CPT/HCPCS: 93005; 99285; 96372; 96361; 96365; 36415; 87040; 87086; 83605; 85025; 85610; 85730; 87088; 80053; 81001; 87186; 82803; 93010; J1630; J2060; J0696; J7030

== ENCOUNTER 2020-07-30 10:59 | Emergency (ER) | payer MEDICARE, MEDICAID ==
[2020-07-30 13:23] LABS: AMORPHOUS SEDIMENT,URINE TRACE /HPF; APPEARANCE,URINE SLIGHTLY-CLOUDY; BILIRUBIN,URINE NEGATIVE (NEGATIVE); COLOR,URINE YELLOW; GLUCOSE, URINE NEGATIVE (NEGATIVE); KETONES,URINE 20 mg/dL (NEGATIVE); LEUKOCYTE ESTERASE,URINE NEGATIVE (NEGATIVE); NITRITE,URINE NEGATIVE (NEGATIVE); PROTEIN,URINE NEGATIVE (NEGATIVE); URINE SPECIFIC GRAVITY 1.009; UROBILINOGEN,URINE NEGATIVE mg/dL (<2.0)
[2020-07-30 14:48] LABS: ABSOLUTE EOSINOPHILS # (AUTO) 0.1 10^3/uL (0.0-0.6); ABSOLUTE LYMPHOCYTES (AUTO) 1.1 10^3/uL (0.5-4.7); ABSOLUTE MONOCYTES (AUTO) 0.4 10^3/uL (0.1-1.4); ABSOLUTE NEUT (AUTO) 2.1 10^3/uL (1.7-8.2); BASOPHILS % (AUTO) 0.9 % (0-2); EOSINOPHILS % (AUTO) 1.7 % (0-6); HEMATOCRIT 34.4 % (36.0-47.0); HEMOGLOBIN 11.3 g/dL (12.0-15.5); LYMPHOCYTES % (AUTO) 29.9 % (13-45); MEAN CORPUSCULAR HEMOGLOBIN 27.8 pg (27.0-33.4); MEAN CORPUSCULAR VOLUME 84 fl (80-97); MONOCYTES % (AUTO) 11.5 % (3-13); PLATELET COUNT 322 10^3/uL (150-450); RED BLOOD COUNT 4.08 10^6/uL (3.72-5.28); RED CELL DISTRIBUTION WIDTH 17.9 % (11.5-14.0); TOTAL CELLS COUNTED % (AUTO) 100 %; WHITE BLOOD COUNT 3.7 10^3/uL (4.0-10.5)
[2020-07-30 14:59] LABS: ALBUMIN 2.7 g/dL (3.5-5.0); ALKALINE PHOSPHATASE 66 U/L (38-126); ANION GAP 9 (5-19); ASPARTATE AMINO TRANSFERASE 56 U/L (14-36); BILIRUBIN,DIRECT 0.5 mg/dL (0.0-0.4); BILIRUBIN,TOTAL 0.7 mg/dL (0.2-1.3); BLOOD UREA NITROGEN 2 mg/dL (7-20); CALCIUM 8.3 mg/dL (8.4-10.2); CARBON DIOXIDE 27 mmol/L (22-30); CHLORIDE 100 mmol/L (98-107); CREATINE KINASE 38 U/L (30-135); GLUCOSE 120 mg/dL (75-110); TOTAL PROTEIN 5.8 g/dL (6.3-8.2)
[2020-07-30 15:03] LABS: POTASSIUM 2.7 mmol/L (3.6-5.0)
[2020-07-30] MEDS ORDERED: POTASSIUM CHLORIDE 20 MEQ PACKET PO ONE (15:29)
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
[2020-07-30 17:34] LABS: VENOUS BLOOD BASE EXCESS 4.6 mmol/L; VENOUS BLOOD HCO3 29.5 mmol/L (20-32); VENOUS BLOOD PCO2 44.7 mmHg (35-63); VENOUS BLOOD PH 7.44 (7.30-7.42)
[2020-07-30 18:38] LABS: URINE AMPHETAMINES SCREEN NEGATIVE; URINE BARBITURATES SCREEN NEGATIVE; URINE COCAINE SCREEN NEGATIVE; URINE MARIJUANA (THC) SCREEN NEGATIVE; URINE METHADONE SCREEN NEGATIVE; URINE PHENCYCLIDINE SCREEN NEGATIVE
[2020-07-30 18:41] LABS: URINE BENZODIAZEPINES SCREEN UNCONFIRMED POSITIVE
[2020-07-30] MEDS ORDERED: DIVALPROEX SODIUM 250 MG TABLET.DR PO ONE (18:42)
--- NOTE | 2020-07-30 21:05 | EKG REPORT ---
SEVERITY:- OTHERWISE NORMAL ECG - SINUS TACHYCARDIA : Confirmed by: Kaz Chavira 30-Jul-2020 21:04:31
[2020-07-30] MEDS ORDERED: TRAZODONE HCL 50 MG TABLET PO SCH (22:00)
[2020-07-30] MEDS: DILTIAZEM HCL 240 MG CAPSULE.CR PO SCH (22:09)
[2020-07-30] MEDS: ARIPIPRAZOLE 5 MG TABLET PO SCH (22:10)
[2020-07-30] MEDS: BENZTROPINE MESYLATE 1 MG TABLET PO SCH (22:10)
[2020-07-30] MEDS: POTASSIUM CHLORIDE 20 MEQ PACKET PO SCH (22:10)
[2020-07-30] MEDS ORDERED: LORAZEPAM 1 MG TABLET PO ONE (23:48)
[2020-07-30] MEDS ORDERED: LORAZEPAM INJ 2 MG/1 ML VIAL IM ONE (23:52)
--- NOTE | 2020-07-31 10:37 | PSYCHOLOGICAL NOTE ---
Psych Note - Psych Note Date seen by psych provider: 07/31/20 Psych Note: Reason for Consult: Medication recommendations Pt arrives via ems. EMS states home health nurse called EMS due to patient having rectal temp of 99.1, E Chart Review: Patient has a history of refusing medications (please use Depakote sprinkles into food or use Depakene). It is noted labs were conducted yesterday; Potassium is at it lowest from previous lab reports: low levels of potassium can affect psychologically; ie Mental lethargy, depression, mood swings, psychosis, disorientation and confusion. Clinical Presentation: Altered Mental Status Low Potassium UTI History of Bipolar since 1999 Stroke last year Medication recommendations per [facility] contracted psychiatrist Dr Abdoulaye ARRIAGA are as follows: Please Discontinue home medications of Latuda, Abilify, Trazadone, Ambien and Ativan- it is noted the patient's PCM continues to prescribe these medications Depakote 500MG Sprinkles twice a day- Please mix into food or use Depakene if needed Risperdal 0.25MG twice a day as needed Impression/Plan: Patient is cleared from acute psychiatric services. Patient is admitted to [facility] services and patient is unable to complete her daily living skills independently. At this time, Hospice continues to be involved in the Patient's care with home health continuing to come to home daily. Inpatient psychiatric treatment would not be appropriate. Medication recommendations have been provided. Clinician notes, patient's outpatient providers have not followed recommendations and have continued to prescribe previous medications of Latuda, Abilify and Trazdone while adding Ambien and Ativan. Given stroke last year, providers that want to address Bipolar Symptoms (confusion, irritability, psychosis etc) are asked to also be mindful that after a stroke, antipsychotics and benzodiazepines can cause and/or exacerbate Bipolar symptoms Dr. Enriquez was consulted on the care and management of this patient; ED Physician is in agreement with recommendations.
[2020-07-31] MEDS: DIVALPROEX SODIUM 250 MG TABLET.DR PO SCH ×2 (10:54→11:27)
[2020-07-31] MEDS: ARIPIPRAZOLE 5 MG TABLET PO SCH ×2 (10:54→11:33)
[2020-07-31] MEDS: LEVOTHYROXINE SODIUM 0.05 MG TABLET PO SCH ×2 (10:54→11:34)
[2020-07-31] MEDS: BENZTROPINE MESYLATE 1 MG TABLET PO SCH ×2 (10:54→11:33)
[2020-07-31] MEDS: APIXABAN 5 MG TABLET PO SCH ×2 (10:55→11:33)
[2020-07-31] MEDS: FUROSEMIDE 40 MG TABLET PO SCH ×2 (10:55→11:34)
[2020-07-31] MEDS: DILTIAZEM HCL 240 MG CAPSULE.CR PO SCH ×2 (10:56→11:33)
[2020-07-31] MEDS: POTASSIUM CHLORIDE 20 MEQ PACKET PO SCH ×3 (10:56→18:02)
[2020-07-31] MEDS ORDERED: POTASSI CL 20 MEQ/50 ML RIDER 20 MEQ/50 ML RTUPB IV ONE (11:16)
[2020-07-31] MEDS ORDERED: OLANZAPINE INJ/PF 10 MG SDV IM ONE (11:25)
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
[2020-07-31] MEDS: DIVALPROEX SODIUM 125 MG CAP.SPRINK PO SCH ×2 (13:08→18:02)
[2020-07-31] MEDS: MAGNESIUM SULFATE/D5W 1 GM/100 ML RTUPB IV SCH ×2 (14:57→15:40)
[2020-07-31] MEDS ORDERED: METFORMIN HCL 500 MG TABLET PO SCH (20:00)
[2020-07-31] MEDS: METFORMIN HCL 500 MG TABLET PO SCH (21:17)
[2020-08-01 05:24] LABS: C DIFFICILE GDH NEGATIVE (NEGATIVE)
[2020-08-01 07:29] LABS: ANION GAP 7 (5-19); CALCIUM 8.7 mg/dL (8.4-10.2); CARBON DIOXIDE 31 mmol/L (22-30); CHLORIDE 103 mmol/L (98-107); GLUCOSE 95 mg/dL (75-110); POTASSIUM 3.6 mmol/L (3.6-5.0)
[2020-08-01 07:34] LABS: BLOOD UREA NITROGEN < 2 mg/dL (7-20)
[2020-08-01] MEDS: METFORMIN HCL 500 MG TABLET PO SCH ×2 (10:45→22:23)
[2020-08-01] MEDS: DIVALPROEX SODIUM 125 MG CAP.SPRINK PO SCH ×2 (10:45→18:51)
[2020-08-01] MEDS: RISPERIDONE 0.25 MG TABLET PO PRN (10:46)
[2020-08-01] MEDS: DILTIAZEM HCL 240 MG CAPSULE.CR PO SCH (10:46)
[2020-08-01] MEDS: LEVOTHYROXINE SODIUM 0.05 MG TABLET PO SCH (10:46)
[2020-08-01] MEDS: FUROSEMIDE 20 MG TABLET PO SCH (10:46)
[2020-08-01] MEDS: APIXABAN 5 MG TABLET PO SCH (10:47)
[2020-08-01] MEDS: POTASSIUM CHLORIDE 20 MEQ PACKET PO SCH ×3 (10:47→19:14)
[2020-08-01] MEDS: NYSTATIN TOPICAL POWDER 15 GM TP SCH ×2 (10:49→19:51)
--- NOTE | 2020-08-01 15:49 | ER Document Report ---
Doctor's Note Notes: 08/01/20 15:49 Labs as recorded. We potassium as recorded. Patient has been calm and cooperative today. She is taking her medications. We are waiting for social evaluation and possible placement.
--- NOTE | 2020-08-02 09:52 | ER Document Report ---
Doctor's Note Notes: 08/02/20 09:52 Patient was seen on morning rounds. Patient is sleeping but does awaken to conversation. Patient has no complaints at this time. I have reviewed the patient's laboratory studies. Currently still waiting on placement issues.
[2020-08-02] MEDS: DIVALPROEX SODIUM 125 MG CAP.SPRINK PO SCH (09:55)
[2020-08-02] MEDS: FUROSEMIDE 20 MG TABLET PO SCH (09:55)
[2020-08-02] MEDS: POTASSIUM CHLORIDE 20 MEQ PACKET PO SCH (09:55)
[2020-08-02] MEDS: METFORMIN HCL 500 MG TABLET PO SCH (09:55)
[2020-08-02] MEDS: APIXABAN 5 MG TABLET PO SCH (09:55)
[2020-08-02] MEDS: DILTIAZEM HCL 240 MG CAPSULE.CR PO SCH (09:55)
[2020-08-02] MEDS: NYSTATIN TOPICAL POWDER 15 GM TP SCH (09:56)
[2020-08-02] MEDS: LEVOTHYROXINE SODIUM 0.05 MG TABLET PO SCH (09:56)
[2020-08-02] MEDS: RISPERIDONE 0.25 MG TABLET PO PRN (09:56)
[2020-08-02 11:53] VITALS: BP 120/60
== END 2020-08-02 16:18 | disposition home or self-care (01) ==
LOC: ER 10:59
DX: E87.6 Hypokalemia (principal); F31.9 Bipolar disorder, unspecified; R89.2 Abnormal level of other drugs, medicaments and biological substances in specimens from other organs, systems and tissues; R39.198 Other difficulties with micturition; Z88.0 Allergy status to penicillin; Z88.8 Allergy status to other drugs, medicaments and biological substances; I10 Essential (primary) hypertension; J44.9 Chronic obstructive pulmonary disease, unspecified; E11.40 Type 2 diabetes mellitus with diabetic neuropathy, unspecified
CPT/HCPCS: 93005; 99284; 96372; 96365; 96366 ×2; 96367; 36415; 82962; 82550; 83735; 84443; 85025; 80048; 80053; 81001; 84484; 80164; 80307; 82803; 87324; 87449; 93010; A9270 ×17; J2060; J3475; J3490 ×3; J3480

== ENCOUNTER 2020-09-03 08:07 | Emergency (ER) | payer MEDICARE, MEDICAID ==
[2020-09-03 09:10] VITALS: BP 132/80
[2020-09-03 09:53] LABS: ABSOLUTE EOSINOPHILS # (AUTO) 0.1 10^3/uL (0.0-0.6); ABSOLUTE MONOCYTES (AUTO) 0.9 10^3/uL (0.1-1.4); MEAN CORPUSCULAR VOLUME 84 fl (80-97); TOTAL CELLS COUNTED % (AUTO) 100 %
[2020-09-03 09:57] LABS: ABSOLUTE BASOPHILS # (AUTO) 0.1 10^3/uL (0.0-0.2); ABSOLUTE LYMPHOCYTES (AUTO) 2.7 10^3/uL (0.5-4.7); ABSOLUTE NEUT (AUTO) 3.5 10^3/uL (1.7-8.2); BASOPHILS % (AUTO) 0.9 % (0-2); EOSINOPHILS % (AUTO) 0.9 % (0-6); HEMATOCRIT 39.3 % (36.0-47.0); HEMOGLOBIN 13.4 g/dL (12.0-15.5); MEAN CORPUSCULAR HEMOGLOBIN 28.6 pg (27.0-33.4); MONOCYTES % (AUTO) 12.2 % (3-13); PLATELET COUNT 348 10^3/uL (150-450); RED BLOOD COUNT 4.67 10^6/uL (3.72-5.28); RED CELL DISTRIBUTION WIDTH 18.1 % (11.5-14.0); WHITE BLOOD COUNT 7.2 10^3/uL (4.0-10.5)
[2020-09-03] MEDS ORDERED: NORMAL SALINE 500 ML IV ONE (10:12)
--- NOTE | 2020-09-03 10:15 | ER Document Report ---
ED GI/ - General Chief Complaint: Abdominal Pain Stated Complaint: ABDOMINAL PAIN Time Seen by Provider: 09/03/20 08:57 Primary Care Provider: ZARINA KOENIG MD [ACTIVE STAFF] - Follow up in 3-5 days LISA KEANE NP [Primary Care Provider] - Follow up as needed Notes: Patient is a 55-year-old female who presents emergency department with a chief complaint of generalized abdominal pain. is at bedside and reports that the patient had had abdominal pain for the past week. Denies any nausea, vomiting, or diarrhea. Patient states that her pain is mainly in her mid upper abdomen. They deny any melena stools. TRAVEL OUTSIDE OF THE [place] IN LAST 30 DAYS: No - Related Data Allergies/Adverse Reactions: amoxicillin [From Augmentin] Allergy (Verified 09/03/20 09:29) clavulanic acid [From Augmentin] Allergy (Verified 09/03/20 09:29) Past Medical History - Social History Smoking Status: Never Smoker Chew tobacco use (# tins/day): No Frequency of alcohol use: None Drug Abuse: None Family History: Reviewed & Not Pertinent Patient has homicidal ideation: No - Past Medical History Cardiac Medical History: Reports: Hx Hypercholesterolemia, Hx Hypertension Denies: Hx Coronary Artery Disease, Hx Heart Attack Pulmonary Medical History: Reports: Hx COPD Neurological Medical History: Reports: Hx Cerebrovascular Accident Endocrine Medical History: Reports: Hx Diabetes Mellitus Type 2 - neuropothy, Hx Hypothyroidism Renal/ Medical History: Denies: Hx Peritoneal Dialysis Psychiatric Medical History: Reports: Hx Bipolar Disorder Review of Systems - Review of Systems Notes: REVIEW OF SYSTEMS: CONSTITUTIONAL : Denies recent illness. Denies recent unintentional weight loss. Denies fever, chills, or sweats. EENT: Denies eye, ear, throat, or mouth pain, discharge, or symptoms. Denies nasal or sinus congestion. CARDIOVASCULAR: Denies chest pain. RESPIRATORY: Denies shortness of breath, cough, congestion, difficulty breathing, or wheezing. GASTROINTESTINAL: See HPI. GENITOURINARY: Denies difficulty urinating, burning, blood in urine, urgency or frequency. MUSCULOSKELETAL: Denies neck and back pain. Denies joint pain or swelling. SKIN: Denies rash, itchiness, or lesions HEMATOLOGIC : Denies easy bruising or bleeding. LYMPHATIC: Denies swollen, painful, enlarged glands. NEUROLOGICAL: Denies no numbness or tingling denies weakness. Denies headache. Denies altered mental status. Denies alteration in speech. PSYCHIATRIC: Denies stress, anxiety, alteration in sleep patterns, or depression. All other systems reviewed and negative. Physical Exam - Vital signs Vitals: Resp BP Pulse Ox 20 142/76 H 100 09/03/20 08:42 09/03/20 08:42 09/03/20 08:42 - Notes Notes: PHYSICAL EXAMINATION: GENERAL: Appears well, healthy, well-nourished, no acute distress. HEAD: Normocephalic, atraumatic. EYES: PERRL, conjunctiva normal, all extraocular movements intact, sclera nonicteric ENT: Moist mucous membranes. NECK: Supple, no noticeable swelling, redness, rash. Normal range of motion. LUNGS: Equal breath sounds bilaterally and clear to auscultation. No wheezes rales or rhonchi. CARDIOVASCULAR: S1-S2, regular rate, regular rhythm. Radial pulses 2+, normal. ABDOMEN: Normoactive bowel sounds. Soft, very mildly tender right upper abdomen, no guarding, no rebound tenderness, and no masses palpated. EXTREMITIES: Normal strength and range of motion, no pitting or edema. No cyanosis. NEUROLOGICAL: Moves all extremities upon command. Strength 5/5 in all extremities. PSYCH: Normal mood, normal affect. SKIN: Warm, dry. No rash, lesions, ulcerations noted. Normal skin turgor. Course - Re-evaluation Re-evalutation: 09/03/20 12:01 Reevaluated the patient. She states that she feels better after receiving only IV fluids. Hematology is unremarkable. Chemistries are also unremarkable, other than a potassium of 3.4. Urinalysis shows ketones in her urine. No evidence of urinary tract infection. On her CT, shows that she has hepatic steatosis and a small hepatic cyst. She also has possible stones or sludge. We will send the patient for right upper quadrant ultrasound for further evaluation. 09/03/20 13:04 Patient has hepatic steatosis, hepatic cyst and radiologist cannot rule out cholecystitis. Discussed this ongoing tenting Dr. Gaming. Will call Dr. Koenig in regards to this issue. 09/03/20 13:[address] Koenig, surgical hist automation developer. He reviewed the images. Patient will follow up on an outpatient basis. Follow-up precautions were given. Verbal discharge instructions were given to the patient. They verbalized understanding. They are stable for discharge. - Vital Signs Vital signs: Temp Pulse Resp BP Pulse Ox 98.2 F 16 132/80 H 97 09/03/20 17:46 09/03/20 08:45 09/03/20 08:45 09/03/20 08:45 - Laboratory Result Diagrams: 09/03/20 09:25 09/03/20 09:25 Laboratory results interpreted by me: 09/03/20 09/03/20 09/03/20 09:25 09:25 10:29 RDW 18.1 H Potassium 3.4 L BUN 4 L Creatinine 0.31 L Urine Ketones 20 H Discharge - Discharge Clinical Impression: Abdominal pain Qualifiers: Abdominal location: epigastric Qualified Code(s): R10.13 - Epigastric pain Condition: Stable Disposition: HOME, SELF-CARE Additional Instructions: Gallbladder Disease Your evaluation shows evidence of gallbladder disease. The gallbladder is a pouch under the liver which stores bile. Stones, infection, or irritation of the gallbladder cause attacks of pain. Certain foods -- fats in particular -- may provoke attacks. The usual treatment for gallbladder disease is surgical removal of the gallbladder -- called a cholecystectomy. You will be referred to a physician qualified to advise you on the best treatment for your problem. Hospitalization is not necessary. Take clear liquids only until you are painfree. After that, you should stay on a low-fat diet, with frequent SMALL meals. Call the doctor or return at once if you develop severe pain, repeated vomiting, fever, or jaundice (a yellow color in the skin and whites of the eyes). Continue to have her take her pain medicine. Take the nausea medication as needed. Follow-up with the surgeon below. Prescriptions: Ondansetron [Zofran Odt 4 mg Tablet] 1 - 2 tab PO Q4H PRN #15 tab.rapdis PRN Reason: For Nausea/Vomiting Ondansetron [Zofran Odt 4 mg Tablet] 1 - 2 tab PO Q4H PRN #15 tab.rapdis PRN Reason: For Nausea/Vomiting Referrals: LISA KEANE NP [Primary Care Provider] - Follow up as needed ZARINA KOENIG MD [ACTIVE STAFF] - Follow up in 3-5 days
[2020-09-03 10:19] LABS: ALBUMIN 3.9 g/dL (3.5-5.0); ALKALINE PHOSPHATASE 93 U/L (38-126); ANION GAP 12 (5-19); ASPARTATE AMINO TRANSFERASE 29 U/L (14-36); BILIRUBIN,DIRECT 0.4 mg/dL (0.0-0.4); BILIRUBIN,TOTAL 0.6 mg/dL (0.2-1.3); BLOOD UREA NITROGEN 4 mg/dL (7-20); CALCIUM 9.1 mg/dL (8.4-10.2); CARBON DIOXIDE 28 mmol/L (22-30); CHLORIDE 98 mmol/L (98-107); GLUCOSE 102 mg/dL (75-110); POTASSIUM 3.4 mmol/L (3.6-5.0); TOTAL PROTEIN 7.5 g/dL (6.3-8.2)
[2020-09-03 10:57] LABS: APPEARANCE,URINE CLEAR; BILIRUBIN,URINE NEGATIVE (NEGATIVE); COLOR,URINE YELLOW; GLUCOSE, URINE NEGATIVE (NEGATIVE); KETONES,URINE 20 mg/dL (NEGATIVE); LEUKOCYTE ESTERASE,URINE NEGATIVE (NEGATIVE); NITRITE,URINE NEGATIVE (NEGATIVE); PROTEIN,URINE NEGATIVE (NEGATIVE); UROBILINOGEN,URINE NEGATIVE mg/dL (<2.0)
--- NOTE | 2020-09-03 11:42 | RADIOLOGY REPORT (SQ) ---
EXAM DESCRIPTION: CT ABD/PELVIS WITH IV ONLY IMAGES COMPLETED DATE/TIME: 09/03/2020 11:27 am REASON FOR STUDY: abdominal pain COMPARISON: 06/02/2020 TECHNIQUE: CT scan of the abdomen and pelvis performed using helical scanning technique with dynamic intravenous contrast injection. No oral contrast. Images reviewed with lung, soft tissue, and bone windows. Reconstructed coronal and sagittal MPR images reviewed. Delayed images for evaluation of the urinary system also acquired. All images stored on PACS. All CT scanners at this facility use dose modulation, iterative reconstruction, and/or weight based d osing when appropriate to reduce radiation dose to as low as reasonably achievable (ALARA). [facility]: Dose Right [facility]: CareDose [facility]: Dose Right [facility]: Teradose 4D [facility]: Tynker CONTRAST TYPE AND DOSE: contrast/concentration: Isovue 350.00 mmol/ml; Total Contrast Delivered: 99. 0 ml; Total Saline Delivered: 40.0 ml RENAL FUNCTION: BUN 4, creatinine 0.31 RADIATION DOSE: CT Rad equipment meets quality standard of care and radiation dose reduction techniq ues were employed. CTDIvol: 18.2 - 20.8 mGy. DLP: 2075 mGy-cm.. LIMITATIONS: None. FINDINGS: LOWER CHEST: No significant findings. No nodules or infiltrates. LIVER: Decreased attenuation throughout the liver consistent with fatty infiltration. Small hypoatte nuating lesion adjacent to the falciform ligament consistent with cysts. This is better demonstrated on today's study. SPLEEN: Normal size. No focal lesions. PANCREAS: No masses. No significant calcifications. No adjacent inflammation or peripancreatic fluid collections. Pancreatic duct not dilated. GALLBLADDER: Possible layering stones or sludge. ADRENAL GLANDS: No significant masses or asymmetry. RIGHT KIDNEY AND URETER: No solid masses. No significant calcifications. No hydronephrosis or hyd roureter. LEFT KIDNEY AND URETER: No solid masses. No significant calcifications. No hydronephrosis or hydr oureter. AORTA AND VESSELS: No aneurysm. No dissection. Renal arteries, SMA, celiac without stenosis. RETROPERITONEUM: No retroperitoneal adenopathy, hemorrhage or masses. BOWEL AND PERITONEAL CAVITY: No masses or inflammatory changes. No free fluid or peritoneal masses. APPENDIX: Not visualized. PELVIS: No mass. No free fluid. Normal bladder. ABDOMINAL WALL: Umbilical hernia containing omental fat only. BONES: No significant or acute findings. OTHER: No other significant finding. IMPRESSION: Hepatic steatosis. Small hepatic cyst. No acute findings. TECHNICAL DOCUMENTATION: JOB ID: [id number] Quality ID # [id number]: Final reports with documentation of one or more dose reduction techniques (e.g., Au tomated exposure control, adjustment of the mA and/or kV according to patient size, use of iterative reconstruction technique) 2010 [employer]- All Rights Reserved Reading location - IP/workstation name: [email or web address]
--- NOTE | 2020-09-03 12:43 | RADIOLOGY REPORT (SQ) ---
EXAM DESCRIPTION: U/S ABDOMEN LIMITED W/O DOP IMAGES COMPLETED DATE/TIME: 09/03/2020 12:17 pm REASON FOR STUDY: eval stones or sludge COMPARISON: None. TECHNIQUE: Dynamic and static grayscale images acquired of the abdomen and recorded on PACS. Additio nal selected color Doppler and spectral images recorded. LIMITATIONS: None. FINDINGS: PANCREAS: No masses. Visualized pancreatic duct normal caliber. LIVER: No masses. Echotexture normal. LIVER VASCULATURE: Normal directional flow of the main portal vein and hepatic veins. GALLBLADDER: Gallstones with very mild gallbladder wall thickening. Gallbladder wall measures 3.3 mm in diameter with 3.0 being the upper limits of normal. ULTRASOUND-DETECTED MELENDEZ'S SIGN: Positive. INTRAHEPATIC DUCTS AND COMMON DUCT: CBD and intrahepatic ducts normal caliber. No filling defects. AORTA: Normal in caliber. RIGHT KIDNEY: Normal size. Normal echogenicity. No solid or suspicious masses. No hydronephrosis. No calcifications. PERITONEAL AND RIGHT PLEURAL SPACE: No ascites or effusions. OTHER: No other significant findings. IMPRESSION: Gallstones with very mild gallbladder wall thickening. Positive sonographic Melendez's si gn. Acute cholecystitis cannot be excluded. TECHNICAL DOCUMENTATION: JOB ID: [id number] 2010 [employer]- All Rights Reserved Reading location - IP/workstation name: [email or web address]
== END 2020-09-03 17:15 | disposition home or self-care (01) ==
LOC: ER 08:07
DX: R10.13 Epigastric pain (principal); R10.84 Generalized abdominal pain; R10.10 Upper abdominal pain, unspecified; Z88.0 Allergy status to penicillin; Z88.8 Allergy status to other drugs, medicaments and biological substances; I10 Essential (primary) hypertension; J44.9 Chronic obstructive pulmonary disease, unspecified; E11.9 Type 2 diabetes mellitus without complications
CPT/HCPCS: 99285; 96360; 36415; 83690; 85025; 80053; 81001; 76705; 74177; J7040

== ENCOUNTER 2020-10-20 05:50 | Inpatient (IN) | payer MEDICARE, MEDICAID ==
[~2020-10-20 05:50] MED LIST changes: +CEFAZOLIN 1 GM/D5W RTU 1 GM/50 ML RTUPB IV PRN; -DILTIAZEM HCL 240 MG CAPSULE.CR PO ONE; -GLYCERIN (PEDIATRIC) SUPP.RECT PR PRN; -INSULIN GLARGINE,HUM.REC.ANLOG 1,000 UNIT/10 ML VIAL (PYX) SUBCUT SCH; -INSULIN GLARGINE,HUM.REC.ANLOG 1,000 UNIT/10 ML VIAL SUBCUT ONE
[2020-10-20 07:12] LABS: ABSOLUTE LYMPHOCYTES (AUTO) 1.7 10^3/uL (0.5-4.7); ABSOLUTE NEUT (AUTO) 5.9 10^3/uL (1.7-8.2); BASOPHILS % (AUTO) 0.1 % (0-2); HEMATOCRIT 42.7 % (36.0-47.0); HEMOGLOBIN 14.8 g/dL (12.0-15.5); LYMPHOCYTES % (AUTO) 19.7 % (13-45); MEAN CORPUSCULAR HEMOGLOBIN 28.6 pg (27.0-33.4); MEAN CORPUSCULAR HGB CONC 34.7 g/dL (32.0-36.0); MEAN CORPUSCULAR VOLUME 83 fl (80-97); MONOCYTES % (AUTO) 11.1 % (3-13); PLATELET COUNT 406 10^3/uL (150-450); RED BLOOD COUNT 5.18 10^6/uL (3.72-5.28); SEGMENTED NEUTROPHILS % (AUTO) 69.1 % (42-78); TOTAL CELLS COUNTED % (AUTO) 100 %; WHITE BLOOD COUNT 8.6 10^3/uL (4.0-10.5)
[2020-10-20 07:19] LABS: INTERNATIONAL RATION (INR) 1.06
[2020-10-20 07:20] LABS: PARTIAL THROMBOPLASTIN TIME 31.6 SEC (23.5-35.8)
[2020-10-20] MEDS ORDERED: BUPIVACAINE HCL 0.25 % INJ/PF (2.5 MG/1 ML) 30 ML VIAL ONE (08:35)
[2020-10-20 08:44] LABS: AMYLASE 49 U/L (30-110); BLOOD UREA NITROGEN 20 mg/dL (7-20); CALCIUM 10.8 mg/dL (8.4-10.2); CARBON DIOXIDE 16 mmol/L (22-30); CHLORIDE 84 mmol/L (98-107); GLUCOSE 184 mg/dL (75-110)
[2020-10-20 08:50] LABS: ANION GAP 30 (5-19)
[2020-10-20] MEDS ORDERED: POTASSI CL 20 MEQ/50 ML RIDER 20 MEQ/50 ML RTUPB IV ONE (09:37)
[2020-10-20] MEDS ORDERED: DEXTROSE 50%-WATER 25 GM/50 ML DISP.SYRIN IV PRN ×2 (09:56)
[2020-10-20] MEDS ORDERED: DEXTROSE 40% GEL 15 GM TUBE PO PRN ×2 (09:56)
[2020-10-20] MEDS ORDERED: GLUCAGON,HUMAN RECOMB 1 MG INJ IM PRN (09:56)
[2020-10-20] MEDS ORDERED: ONDANSETRON HCL INJ/PF 4 MG/2 ML SDV ONE (10:17)
[2020-10-20] MEDS: ONDANSETRON HCL INJ/PF 4 MG/2 ML SDV IV PRN (10:19)
[2020-10-20] MEDS: POTASSIUM CHLORIDE 20 MEQ/50 ML RTU IV SCH ×3 (12:38→15:26)
[2020-10-20] MEDS: RINGERS SOLUTION,LACTATED 1,000 ML IV PRN (12:43)
[2020-10-20] MEDS: INSULIN LISPRO 100 UNIT/ML 3 ML VIAL SUBCUT SCH ×2 (13:24→16:48)
--- NOTE | 2020-10-20 15:34 | PDOC H&P ---
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 She had been taken by her to see Dr. Koenig because she was not eating very much, and she was found to have gallstones without evidence of cholecystitis. Plan was for her to have an elective outpatient cholecystectomy today. However, some preoperative labs were checked and she had numerous electrolyte disturbances, most notably a profound hypokalemia. Dr. Koenig asked me to come down and evaluate the patient. Given her electrolyte disturbances, it was deemed that her conditions were not optimal for surgery at this time. Her said that she is not had any of her medications in 2 to 3 weeks. He also said that she is not been eating anything during that time, and has had very little in the way of p.o. fluids. He said for the past few days she has been having some vomiting off and on, no diarrhea but he says she has been constipated for several days. Past Medical History Cardiac Medical History: Reports: Hyperlipidema, Hypertension Denies: Coronary Artery Disease, Myocardial Infarction Pulmonary Medical History: Reports: Chronic Obstructive Pulmonary Disease (COPD) Denies: Asthma, Bronchitis, Pneumonia Neurological Medical History: Denies: Seizures Endocrine Medical History: Reports: Diabetes Mellitus Type 2 - neuropothy, Hypothyroidism Musculoskeltal Medical History: Reports: Arthritis Psychiatric Medical History: Reports: Bipolar Disorder, Depression Hematology: Reports: Anemia Social History Smoking Status: Never Smoker Frequency of Alcohol Use: None Hx Recreational Drug Use: No Hx Prescription Drug Abuse: No - Advance Directive Resuscitation Status: Do Not Resuscitate Family History Family History: Reviewed & Not Pertinent Parental Family History Reviewed: No - Unable to obtain Children Family History Reviewed: Unknown Sibling(s) Family History Reviewed.: Unknown Medication/Allergy Home Medications: Acetaminophen [Tylenol 325 mg Tablet] 650 mg PO Q4HP PRN 08/11/19 Apixaban [Eliquis 5 mg Tablet] 5 mg PO BID 08/11/19 Aripiprazole [Abilify 5 mg Tablet] 5 mg PO DAILY 08/11/19 Citalopram Hydrobromide [Celexa] 1 tab PO DAILY 08/11/19 Diltiazem HCl [Cardizem Cd 240 mg Capsule.cr] 1 cap.sr PO DAILY 08/11/19 Furosemide [Lasix 40 mg Tablet] 40 mg PO QAM 08/11/19 Glycerin [Laxative Suppository] 1 each RC DAILY PRN 08/11/19 Insulin Aspart [Novolog Insulin 100 Unit/1 ml 10 ml] 14 unit SQ TID 08/11/19 Insulin Glargine,Hum.rec.anlog [Basaglar Kwikpen U-100] 35 unit SQ QHS 08/11/19 Levothyroxine Sodium [Synthroid 50 Mcg Tablet] 50 mcg PO DAILY 08/11/19 Lurasidone HCl [Latuda 40 mg Tablet] 40 mg PO DAILY 08/11/19 Magnesium Oxide [Mag-Ox 400 mg Tablet] 400 mg PO DAILY 08/11/19 Potassium Chloride [K-Tab ER] 40 meq PO DAILY 08/11/19 Pregabalin [Lyrica 50 Mg Capsule] 100 mg PO Q8 08/11/19 Valproate Sodium [Depakene Syrup 250 Mg/5 Ml Udcup] 250 mg PO TID 08/11/19 Polyethylene Glycol 3350 [Miralax Powder 17 gm/Packet] 1 packet PO DAILY PRN #1 pkg 06/02/20 Potassium Chloride [K-Tab ER] 20 meq PO DAILY 30 Days #130 tablet.er 06/28/20 Potassium Chloride 20 meq PO DAILY #5 packet 07/06/20 Cephalexin Monohydrate [Keflex 500 mg Capsule] 500 mg PO Q6H 10 Days #40 capsule 07/17/20 Ondansetron [Zofran Odt 4 mg Tablet] 1 - 2 tab PO Q4H PRN #15 tab.rapdis 09/03/20 Ondansetron [Zofran Odt 4 mg Tablet] 1 - 2 tab PO Q4H PRN #15 tab.rapdis 09/03/20 Allergies/Adverse Reactions: amoxicillin [From Augmentin] Allergy (Verified 09/03/20 09:29) clavulanic acid [From Augmentin] Allergy (Verified 09/03/20 09:29) Review of Systems ROS unobtainable: Due to mental status Physical Exam Vital Signs: Temp Pulse Resp BP Pulse Ox 97.8 F 110 H 17 93/72 L 92 10/20/20 13:02 10/20/20 13:02 10/20/20 13:02 10/20/20 13:02 10/20/20 13:02 Intake & Output 10/19/20 10/20/20 10/21/20 06:59 06:59 06:59 Intake Total 0 240 Balance 0 240 Weight 81.65 kg General appearance: PRESENT: no acute distress, disheveled, obese, other - This is a bedbound female who does not make very many purposeful movements with her upper extremities and does not seem to often communicate verbally; I am told that when she does so it is in Polish. ABSENT: cooperative Head exam: PRESENT: atraumatic, normocephalic Eye exam: ABSENT: conjunctival injection, nystagmus, scleral icterus Ear exam: PRESENT: normal external ear exam Mouth exam: PRESENT: dry mucosa, neck supple Teeth exam: PRESENT: poor dentation Neck exam: PRESENT: other - When I tried to examine her neck she would try to push me away with gross motor movements. ABSENT: JVD, tenderness Respiratory exam: PRESENT: clear to auscultation star, symmetrical, unlabored. ABSENT: accessory muscle use, chest wall tenderness, crackles, prolonged expiratory phas, rhonchi, tachypnea, wheezes Cardiovascular exam: PRESENT: irregular rhythm, +S1, +S2 Pulses: PRESENT: normal radial pulses Vascular exam: PRESENT: normal capillary refill GI/Abdominal exam: PRESENT: hypoactive bowel sounds, soft. ABSENT: distended, guarding, rebound, tenderness Extremities exam: PRESENT: other - She had severe onychomycosis of the toenails of the lower extremities, appeared to have a pressure sore on the right heel. ABSENT: pedal edema Musculoskeletal exam: ABSENT: ambulatory Neurological exam: PRESENT: awake, aphasic, other - She did not follow any commands for me, she did not display any fine motor movements with her upper extremities and did not move her lower extremities. ABSENT: oriented to person, oriented to place, oriented to situation Psychiatric exam: PRESENT: flat affect Skin exam: PRESENT: dry, warm Results Laboratory Results: 10/20/20 06:51 10/20/20 08:04 10/20/20 10/20/20 10/20/20 06:51 06:51 08:04 WBC 8.6 RBC 5.18 Hgb 14.8 Hct 42.7 MCV 83 MCH 28.6 MCHC 34.7 RDW 15.0 H Plt Count 406 Seg Neutrophils % 69.1 Sodium Cancelled 130.0 L Potassium Cancelled 2.0 L* Chloride Cancelled 84 L Carbon Dioxide Cancelled 16 L Anion Gap Cancelled 30 H BUN Cancelled 20 Creatinine Cancelled 0.46 L Est GFR ( Amer) Cancelled > 60 Est GFR (Non-Af Amer) Cancelled Glucose Cancelled 184 H Calcium Cancelled 10.8 H Amylase Cancelled 49 Assessment and Plan - Diagnosis (1) Hypokalemia Is this a current diagnosis for this admission?: Yes (2) Dehydration Is this a current diagnosis for this admission?: Yes (3) Hyponatremia Is this a current diagnosis for this admission?: Yes (4) Functional quadriplegia Is this a current diagnosis for this admission?: Yes (5) Atrial fibrillation Qualifiers: Atrial fibrillation type: longstanding persistent Qualified Code(s): I48.11 - Longstanding persistent atrial fibrillation Is this a current diagnosis for this admission?: Yes (6) Bipolar depression Is this a current diagnosis for this admission?: Yes (7) Hypothyroidism Qualifiers: Hypothyroidism type: unspecified Qualified Code(s): E03.9 - Hypothyroidism, unspecified Is this a current diagnosis for this admission?: Yes (8) Insulin dependent diabetes mellitus Is this a current diagnosis for this admission?: Yes - Plan Summary Summary: Without the patient being able to provide me much information, or any information at all for that matter, it would appear that on the surface that she needs some IV fluids and some electrolytes, with some as needed antiemetics. We will try to get her some full liquids because she is not wanting to eat, but she may take some liquids according to her . We will start her on some LR and give her some IV potassium. We will check a magnesium level to see if that needs to be replaced as well. She is not been taking her medications according to her , so should not be too much of a problem not to give her Lasix. We will try as best we can to get some of her psychiatric medications into her. For most of them, there is not any sort of good non-oral option. Our goal will be to try to improve her dehydration and electrolyte disturbances to the point where she would be able to get her procedure later this week and then maybe go home. - Time Time Spent with patient: 35 or more minutes Anticipated Discharge Disposition: Home with Home Health Anticipated Discharge Timeframe: Unknown - Inpatient Certification Based on my medical assessment, after consideration of the patient's comorbidities, presenting symptoms, or acuity I expect that the services needed warrant INPATIENT care.: Yes I certify that my determination is in accordance with my understanding of Medicare's requirements for reasonable and necessary INPATIENT services [42 CFR 412.3e].: Yes Medical Necessity: Significant Comorbidiites Make Outpatient Treatment Too Risky, Need Close Monitoring Due to Risk of Patient Decompensation, Need For IV Fluids, Need For Continuous Telemetry Monitoring, Need for Surgery, Risk of Complication if Not Cared For in Hospital
[2020-10-21] MEDS: INSULIN LISPRO 100 UNIT/ML 3 ML VIAL SUBCUT SCH ×5 (00:02→22:34)
[2020-10-21 05:47] LABS: ANION GAP 17 (5-19); BLOOD UREA NITROGEN 16 mg/dL (7-20); CALCIUM 9.9 mg/dL (8.4-10.2); CHLORIDE 89 mmol/L (98-107); GLUCOSE 137 mg/dL (75-110)
[2020-10-21 05:59] LABS: CARBON DIOXIDE 26 mmol/L (22-30)
[2020-10-21] MEDS: RINGERS SOLUTION,LACTATED 1,000 ML IV PRN ×2 (06:45→17:03)
[2020-10-21] MEDS: ONDANSETRON HCL INJ/PF 4 MG/2 ML SDV IV PRN (06:45)
[2020-10-21] MEDS: POTASSIUM CHLORIDE 20 MEQ/50 ML RTU IV SCH ×3 (07:37→11:49)
[2020-10-21] MEDS ORDERED: INFLUENZA QUAD (6MOS+) 2020-21 VAC 0.5 ML SYR IM ONE (08:00)
--- NOTE | 2020-10-21 11:32 | PDOC PROGRESS REPORT ---
Subjective Date:: 10/21/20 Subjective:: Patient is noncommunicative but awake. Appears to have just vomited. Reason For Visit: HYPOKALEMIA,HYPONATREMIA,DEHYDRATION Physical Exam Vital Signs: Temp Pulse Resp BP Pulse Ox 97.8 F 112 H 18 118/73 100 10/21/20 10:00 10/21/20 07:56 10/21/20 07:56 10/21/20 07:56 10/21/20 07:56 Intake & Output 10/20/20 10/21/20 10/22/20 06:59 06:59 06:59 Intake Total 0 2057 50 Balance 0 2057 50 Weight 81.65 kg 81.6 kg Exam: Abdomen is soft with no definite tenderness. Results Laboratory Results: 10/20/20 06:51 10/21/20 05:15 10/21/20 10/21/20 05:15 05:15 Sodium 131.6 L Potassium 2.0 L* Chloride 89 L Carbon Dioxide 26 D Anion Gap 17 BUN 16 Creatinine 0.49 L Est GFR ( Amer) > 60 Glucose 137 H Calcium 9.9 Magnesium 1.5 L Assessment & Plan - Diagnosis (1) Dehydration Is this a current diagnosis for this admission?: Yes (2) Functional quadriplegia Is this a current diagnosis for this admission?: Yes (3) Hypokalemia Is this a current diagnosis for this admission?: Yes (4) Hyponatremia Is this a current diagnosis for this admission?: Yes (5) Bipolar depression Is this a current diagnosis for this admission?: Yes - Time Anticipated Discharge Disposition: Home with Home Health Anticipated Discharge Timeframe: within 72 hours Critical Time spent with patient: 15-24 minutes - Inpatient Certification Medical Necessity: Need For IV Fluids, Risk of Complication if Not Cared For in Hospital - Plan Summary Plan Summary: 55-year-old female with bipolar diabetes mellitus has been having failure to thrive and noted to have gallstones. She has been having nausea and vomiting episodes. Her potassium is 2.0 this morning after KCl replacement yesterday. Magnesium was also noted to be 1.6 and getting replacement today also. The plan is to do laparoscopic cholecystectomy when electrolytes are corrected
[2020-10-21] MEDS: MAGNESIUM SULFATE/D5W 1 GM/100 ML RTUPB IV SCH ×2 (14:02→14:03)
[2020-10-21] MEDS: MAGNESIUM SULFATE 1 GM/D5W 100 ML IV SCH ×2 (14:05→15:41)
[2020-10-21 17:14] LABS: ANION GAP 19 (5-19); BLOOD UREA NITROGEN 13 mg/dL (7-20); CALCIUM 8.9 mg/dL (8.4-10.2); CARBON DIOXIDE 21 mmol/L (22-30); CHLORIDE 90 mmol/L (98-107); GLUCOSE 147 mg/dL (75-110)
[2020-10-21 17:20] LABS: POTASSIUM 2.2 mmol/L (3.6-5.0)
--- NOTE | 2020-10-21 18:17 | PDOC PROGRESS REPORT ---
Subjective Date:: 10/21/20 Subjective:: No adverse events overnight. Vital signs been stable. Blood pressures on the l ow side but it has been in a consistent range. Reason For Visit: HYPOKALEMIA,HYPONATREMIA,DEHYDRATION Physical Exam Vital Signs: Temp Pulse Resp BP Pulse Ox 97.7 F 99 18 94/52 L 100 10/21/20 15:58 10/21/20 15:58 10/21/20 15:58 10/21/20 15:58 10/21/20 15:58 Intake & Output 10/20/20 10/21/20 10/22/20 06:59 06:59 06:59 Intake Total 0 2057 1525 Balance 0 2057 152 Weight 81.65 kg 81.6 kg General appearance: PRESENT: no acute distress, disheveled, obese. ABSENT: cooperative Respiratory exam: PRESENT: clear to auscultation star, symmetrical, unlabored. ABSENT: accessory muscle use, chest wall tenderness, crackles, prolonged expiratory phas, rhonchi, tachypnea, wheezes Cardiovascular exam: PRESENT: irregular rhythm, +S1, +S2 Pulses: PRESENT: normal radial pulses Vascular exam: PRESENT: normal capillary refill GI/Abdominal exam: PRESENT: hypoactive bowel sounds, soft. ABSENT: distended, guarding, rebound, tenderness Extremities exam: PRESENT: other - She had severe onychomycosis of the toenails of the lower extremities, appeared to have a pressure sore on the right heel. ABSENT: pedal edema Musculoskeletal exam: ABSENT: ambulatory Neurological exam: PRESENT: awake, aphasic Psychiatric exam: PRESENT: flat affect Skin exam: PRESENT: dry, warm Results Laboratory Results: 10/20/20 06:51 10/21/20 10/21/20 10/21/20 05:15 05:15 16:34 Sodium 131.6 L 130.0 L Potassium 2.0 L* 2.2 L* Chloride 89 L 90 L Carbon Dioxide 26 D 21 L Anion Gap 17 19 BUN 16 13 Creatinine 0.49 L 0.37 L Est GFR ( Amer) > 60 > 60 Glucose 137 H 147 H Calcium 9.9 8.9 Magnesium 1.5 L Assessment and Plan - Diagnosis (1) Hypokalemia Is this a current diagnosis for this admission?: Yes (2) Dehydration Is this a current diagnosis for this admission?: Yes (3) Hyponatremia Is this a current diagnosis for this admission?: Yes (4) Functional quadriplegia Is this a current diagnosis for this admission?: Yes (5) Atrial fibrillation Qualifiers: Atrial fibrillation type: longstanding persistent Qualified Code(s): I48.11 - Longstanding persistent atrial fibrillation Is this a current diagnosis for this admission?: Yes (6) Bipolar depression Is this a current diagnosis for this admission?: Yes (7) Hypothyroidism Qualifiers: Hypothyroidism type: unspecified Qualified Code(s): E03.9 - Hypothyroidism, unspecified Is this a current diagnosis for this admission?: Yes (8) Insulin dependent diabetes mellitus Is this a current diagnosis for this admission?: Yes - Plan Summary Summary: Continue IV fluids. Sodium is holding steady at around 130. Urine output has been good. Magnesium was little bit low and so that was replaced. She got some potassium this morning but it may have been before she got her magnesium. I have ordered some more potassium for her this evening because a repeat this evening was still low. I suspect she is extremely intracellularly depleted. She will likely need repeat administration of potassium to bring her levels back up. - Time Time Spent with patient: 15-24 minutes Anticipated Discharge Disposition: Unknown Anticipated Discharge Timeframe: Unknown
[2020-10-21 18:57] LABS: ANION GAP 11 (5-19); BLOOD UREA NITROGEN 12 mg/dL (7-20); CALCIUM 9.3 mg/dL (8.4-10.2); CARBON DIOXIDE 26 mmol/L (22-30); CHLORIDE 89 mmol/L (98-107); GLUCOSE 121 mg/dL (75-110)
[2020-10-21 19:00] LABS: POTASSIUM 2.4 mmol/L (3.6-5.0)
[2020-10-21] MEDS ORDERED: DEXTROSE 40% GEL 15 GM TUBE PO PRN ×2 (19:18)
[2020-10-21] MEDS ORDERED: GLUCAGON,HUMAN RECOMB 1 MG INJ SUBCUT PRN (19:18)
[2020-10-21] MEDS ORDERED: DEXTROSE 50%-WATER 25 GM/50 ML DISP.SYRIN IV PRN ×2 (19:18)
[2020-10-21] MEDS: POTASSI CL 20 MEQ/50 ML RIDER 20 MEQ/50 ML RTUPB IV SCH ×2 (20:27→22:25)
[2020-10-22] MEDS: POTASSI CL 20 MEQ/50 ML RIDER 20 MEQ/50 ML RTUPB IV SCH ×3 (00:23→22:58)
[2020-10-22] MEDS: RINGERS SOLUTION,LACTATED 1,000 ML IV PRN ×3 (03:26→18:03)
[2020-10-22 07:22] LABS: ANION GAP 12 (5-19); BLOOD UREA NITROGEN 9 mg/dL (7-20); CALCIUM 9.2 mg/dL (8.4-10.2); CARBON DIOXIDE 26 mmol/L (22-30); CHLORIDE 97 mmol/L (98-107); GLUCOSE 99 mg/dL (75-110)
[2020-10-22] MEDS: INSULIN LISPRO 100 UNIT/ML 3 ML VIAL SUBCUT SCH ×4 (08:09→22:10)
[2020-10-22] MEDS: POTASSIUM CHLORIDE 20 MEQ/50 ML RTU IV SCH ×3 (08:44→12:38)
--- NOTE | 2020-10-22 10:29 | PDOC PROGRESS REPORT ---
Subjective Date:: 10/22/20 Subjective:: Appears more alert but still not communicative. Apparently just speaks Serbian. Reason For Visit: HYPOKALEMIA,HYPONATREMIA,DEHYDRATION Physical Exam Vital Signs: Temp Pulse Resp BP Pulse Ox 98.6 F 85 17 125/94 H 92 10/22/20 07:51 10/22/20 07:51 10/22/20 07:51 10/22/20 07:51 10/22/20 07:51 Intake & Output 10/21/20 10/22/20 10/23/20 06:59 06:59 06:59 Intake Total 2057 272 Balance 2057 2722 Weight 81.6 kg 81.8 kg Exam: Afebrile. Abdomen is soft no definite tenderness. Results Laboratory Results: 10/20/20 06:51 10/22/20 05:58 10/21/20 10/21/20 10/22/20 16:34 18:02 05:58 Sodium 130.0 L 126.4 L 134.7 L Potassium 2.2 L* 2.4 L* 3.0 L* Chloride 90 L 89 L 97 L Carbon Dioxide 21 L 26 26 Anion Gap 19 11 12 BUN 13 12 9 Creatinine 0.37 L 0.32 L 0.38 L Est GFR ( Amer) > 60 > 60 > 60 Glucose 147 H 121 H 99 Calcium 8.9 9.3 9.2 Magnesium 2.2 Assessment & Plan - Diagnosis (1) Dehydration Is this a current diagnosis for this admission?: Yes (2) Functional quadriplegia Is this a current diagnosis for this admission?: Yes (3) Hypokalemia Is this a current diagnosis for this admission?: Yes (4) Hyponatremia Is this a current diagnosis for this admission?: Yes (5) Bipolar depression Is this a current diagnosis for this admission?: Yes - Time Anticipated Discharge Disposition: Home, Self Care Anticipated Discharge Timeframe: within 72 hours - Inpatient Certification Medical Necessity: Need For IV Fluids, Need for Surgery - Plan Summary Plan Summary: 55-year-old female on day 2 of admission for failure to thrive with the gallstones and electrolyte imbalance. Her potassium is 3.0 this morning and still being given KCl. Her white count is normal. She had a Covid testing on admission which was negative. She did have episodes of vomiting yesterday and will resume liquid diet today. Plan is to keep her n.p.o. from midnight. Continue with KCl replacement and repeat potassium level tonight and in a.m.. For possible laparoscopic cholecystectomy tomorrow by Dr. Koenig.
--- NOTE | 2020-10-22 17:11 | PDOC PROGRESS REPORT ---
Subjective Date:: 10/22/20 Subjective:: No adverse events overnight. No new complaints. Vital signs been stable. Urin e output has been good. Reason For Visit: HYPOKALEMIA,HYPONATREMIA,DEHYDRATION Physical Exam Vital Signs: Temp Pulse Resp BP Pulse Ox 97.8 F 93 17 111/54 L 99 10/22/20 11:09 10/22/20 14:00 10/22/20 11:09 10/22/20 11:09 10/22/20 11:09 Intake & Output 10/21/20 10/22/20 10/23/20 06:59 06:59 06:59 Intake Total 2057 2723 1063 Balance 2057 2722 1063 Weight 81.6 kg 81.8 kg General appearance: PRESENT: no acute distress, disheveled, obese. ABSENT: cooperative Respiratory exam: PRESENT: clear to auscultation star, symmetrical, unlabored. ABSENT: accessory muscle use, chest wall tenderness, crackles, prolonged expirat ory phas, rhonchi, tachypnea, wheezes Cardiovascular exam: PRESENT: irregular rhythm, +S1, +S2 Pulses: PRESENT: normal radial pulses Vascular exam: PRESENT: normal capillary refill GI/Abdominal exam: PRESENT: hypoactive bowel sounds, soft. ABSENT: distended, guarding, rebound, tenderness Extremities exam: PRESENT: other - She had severe onychomycosis of the toenails of the lower extremities, appeared to have a pressure sore on the right heel. ABSENT: pedal edema Musculoskeletal exam: ABSENT: ambulatory Neurological exam: PRESENT: awake, aphasic Psychiatric exam: PRESENT: flat affect Skin exam: PRESENT: dry, warm Results Laboratory Results: 10/20/20 06:51 10/22/20 05:58 10/21/20 10/21/20 10/22/20 16:34 18:02 05:58 Sodium 130.0 L 126.4 L 134.7 L Potassium 2.2 L* 2.4 L* 3.0 L* Chloride 90 L 89 L 97 L Carbon Dioxide 21 L 26 26 Anion Gap 19 11 12 BUN 13 12 9 Creatinine 0.37 L 0.32 L 0.38 L Est GFR ( Amer) > 60 > 60 > 60 Glucose 147 H 121 H 99 Calcium 8.9 9.3 9.2 Magnesium 2.2 Assessment and Plan - Diagnosis (1) Hypokalemia Is this a current diagnosis for this admission?: Yes (2) Dehydration Is this a current diagnosis for this admission?: Yes (3) Hyponatremia Is this a current diagnosis for this admission?: Yes (4) Functional quadriplegia Is this a current diagnosis for this admission?: Yes (5) Atrial fibrillation Qualifiers: Atrial fibrillation type: longstanding persistent Qualified Code(s): I48.11 - Longstanding persistent atrial fibrillation Is this a current diagnosis for this admission?: Yes (6) Bipolar depression Is this a current diagnosis for this admission?: Yes (7) Hypothyroidism Qualifiers: Hypothyroidism type: unspecified Qualified Code(s): E03.9 - Hypothyroidism, unspecified Is this a current diagnosis for this admission?: Yes (8) Insulin dependent diabetes mellitus Is this a current diagnosis for this admission?: Yes - Plan Summary Summary: Decrease IV fluids. Sodium is nearly normal. Urine output has been good. Magnesium was little bit low and so that was replaced. Potassium levels are coming up. She got an extra dose late this morning. We will follow-up her levels in the morning to see if it has been corrected so she can have surgery. - Time Time Spent with patient: 15-24 minutes Anticipated Discharge Disposition: Home with Home Health Anticipated Discharge Timeframe: within 72 hours
[2020-10-22 21:42] LABS: ANION GAP 8 (5-19); BLOOD UREA NITROGEN 8 mg/dL (7-20); CARBON DIOXIDE 24 mmol/L (22-30); CHLORIDE 102 mmol/L (98-107); GLUCOSE 112 mg/dL (75-110); POTASSIUM 3.3 mmol/L (3.6-5.0)
[2020-10-23] MEDS: POTASSI CL 20 MEQ/50 ML RIDER 20 MEQ/50 ML RTUPB IV SCH (01:29)
[2020-10-23] MEDS: RINGERS SOLUTION,LACTATED 1,000 ML IV PRN ×2 (05:35→14:59)
[2020-10-23 06:01] LABS: BLOOD UREA NITROGEN 7 mg/dL (7-20); CALCIUM 8.9 mg/dL (8.4-10.2); CARBON DIOXIDE 26 mmol/L (22-30); GLUCOSE 105 mg/dL (75-110); POTASSIUM 4.2 mmol/L (3.6-5.0)
[2020-10-23 06:06] LABS: ANION GAP 5 (5-19); CHLORIDE 106 mmol/L (98-107)
[2020-10-23] MEDS ORDERED: BUPIVACAINE HCL 0.25 % INJ/PF (2.5 MG/1 ML) 30 ML VIAL ONE (07:17)
[2020-10-23] MEDS: INSULIN LISPRO 100 UNIT/ML 3 ML VIAL SUBCUT SCH ×4 (07:40→21:00)
[2020-10-23] MEDS ORDERED: PROPOFOL INJ 200 MG/20 ML VIAL IV ONE (07:53)
[2020-10-23] MEDS ORDERED: SUGAMMADEX SODIUM 200 MG/2 ML SDV IV ONE (07:53)
[2020-10-23] MEDS ORDERED: KETOROLAC TROMETHAMINE 60 MG/2 ML SDV ONE (07:53)
[2020-10-23] MEDS ORDERED: DEXAMETHASONE SOD PHOSPHATE INJ 4 MG/1 ML VIAL ONE (07:53)
[2020-10-23] MEDS ORDERED: FENTANYL CITRATE INJ/PF 100 MCG/2 ML AMPUL ONE (07:53)
[2020-10-23] MEDS ORDERED: ONDANSETRON HCL INJ/PF 4 MG/2 ML SDV ONE (07:53)
[2020-10-23] MEDS ORDERED: MIDAZOLAM 2 MG/2 ML INJ ONE (07:53)
[2020-10-23] MEDS ORDERED: LIDOCAINE 2% INJ (20 MG/ML) 20 ML MDV ONE (07:54)
[2020-10-23] MEDS ORDERED: ROCURONIUM BROMIDE INJ 50 MG/5 ML VIAL IV ONE (08:06)
[2020-10-23] MEDS ORDERED: ESMOLOL HCL INJ/PF 100 MG/10 ML SDV IV ONE (08:06)
[2020-10-23] MEDS ORDERED: SUCCINYLCHOLINE CHLORIDE INJ 200 MG/10 ML VIAL ONE (08:06)
[2020-10-23] MEDS ORDERED: VANCOMYCIN HCL INJ 1000 MG VIAL ONE (08:35)
[2020-10-23] MEDS ORDERED: PROMETHAZINE HCL INJ 25 MG/1 ML VIAL IV PRN (09:00)
[2020-10-23] MEDS ORDERED: MORPHINE SULFATE 10 MG/ML INJ IV PRN ×2 (09:00→18:40)
[2020-10-23] MEDS ORDERED: FENTANYL CITRATE INJ/PF 100 MCG/2 ML AMPUL IV PRN ×3 (09:00)
--- NOTE | 2020-10-23 09:55 | Operative Report ---
Operative Report DATE OF SURGERY: 10/23/20 PREOPERATIVE DIAGNOSIS: 1. Acute and chronic cholecystitis with cholelithiasis. 2. Bed ridden condition. 3. Neuropsychiatric issues POSTOPERATIVE DIAGNOSIS: Same OPERATION: 1. Laparoscopic cholecystectomy. 2. Laparoscopic lysis of adhesions SURGEON: ZARINA LOBO ANESTHESIA: GA TISSUE REMOVED OR ALTERED: 1 gallbladder with contents COMPLICATIONS: None ESTIMATED BLOOD LOSS: Scant INTRAOPERATIVE FINDINGS: See below PROCEDURE: Patient was seen in the preop holding area and taken to the main operating room where general anesthesia was induced. Arms were abducted, abdomen exposed, prepped and draped in sterile fashion. Surgical plan and surgical timeout were conducted. Aceves were made on the skin for for port laparoscopy. All sites anesthetized with 1% plain lidocaine. A supraumbilical vertical incision was made with a 15 blade, Veress needle inserted in the peritoneal cavity pneumoperitoneum was established. Veress needle removed, 5 mm port was inserted and a 5 mm flexible viewing scope was inserted. Visualization the peritoneal cavity revealed the port to be in a retroomental position. Manipulated the port, but unable to get it over the omentum. Therefore a right upper quadrant port was placed uneventfully, and this was used to visualize the peritoneal cavity. This port was above the greater omentum. A second right upper quadrant port was established, and using the LigaSure device, adhesions between the greater omentum, and the umbilicus were taken down under direct visualization. This permitted the initially placed supraumbilical port to have access to the free peritoneal space. Under direct visualization a fourth port just to the left of midline in the subxiphoid position was established. Findings were significant for an acutely inflamed gallbladder with adhesions between the fundus and gastroduodenal area. Graspers were placed on the gallbladder and it was reflected up over the liver bed. All the adhesions were taken down using combination of blunt, hook electrocautery, and LigaSure dis section. Unfortunately a hole was made in the gallbladder with a grasper, and there was spillage of bile, and sediment and gravel gallstones. We now proceeded to dissect out the neck of the gallbladder. The anatomy here was visualized completely and confidently. The triangle of Calot was opened widely. We got on both right and left sides of the triangle of Calot low and were confident that we had the critical view. Photos were taken. There was dominant cystic artery in usual location, however serially and laterally to the cystic duct was a skull structure, small, felt to likely represent a diminutive cystic artery. This was clipped once proximally once distally divided with scissors. We now clipped the cystic duct proximally 2 times, once distally and then divided the cystic duct with scissors. The gallbladder is removed from the liver bed using hook cautery dissection. It was placed in an Endobag along with other gallstones and brought out of the patient. We have spent approximately 15 minutes aspirating sludge, gravel, and irrigated peritoneal cavity tension to the right upper quadrant, and perihepatic space, posterior hepatic space and the subdiaphragmatic space, an effort to remove all residual gravel. Once this was accomplished we felt the operation was complete. There is no evidence of bleeding. The scope was repositioned to check for bleeding at the supraumbilical port site and there was none. We felt the operation was complete. Sponge and needle counts are correct. All ports removed under direct visualization wounds closed with 0 Vicryl 3-0 Vicryl benzoin and Steri-Strips. Patient tolerated procedure well, extubated, taken to recovery room in stable condition.
--- NOTE | 2020-10-23 16:12 | PDOC PROGRESS REPORT ---
Subjective Date:: 10/23/20 Subjective:: No adverse events overnight. No new complaints. Vital signs been stable. Urin e output has been good. She had her surgery today and denies any discomfort. Reason For Visit: HYPOKALEMIA,HYPONATREMIA,DEHYDRATION Physical Exam Vital Signs: Temp Pulse Resp BP Pulse Ox 98.4 F 104 H 16 105/66 98 10/23/20 12:27 10/23/20 14:00 10/23/20 12:27 10/23/20 12:27 10/23/20 12:27 Intake & Output 10/22/20 10/23/20 10/24/20 06:59 06:59 06:59 Intake Total 2723 2883 3980 Output Total 2115 Balance 2723 2883 1865 Weight 81.8 kg 81.9 kg General appearance: PRESENT: no acute distress, disheveled, obese. ABSENT: cooperative Respiratory exam: PRESENT: clear to auscultation star, symmetrical, unlabored. ABSENT: accessory muscle use, chest wall tenderness, crackles, prolonged expiratory phas, rhonchi, tachypnea, wheezes Cardiovascular exam: PRESENT: irregular rhythm, +S1, +S2 Pulses: PRESENT: normal radial pulses Vascular exam: PRESENT: normal capillary refill GI/Abdominal exam: PRESENT: hypoactive bowel sounds, soft. ABSENT: distended, guarding, rebound, tenderness Extremities exam: PRESENT: other - She had severe onychomycosis of the toenails of the lower extremities, appeared to have a pressure sore on the right heel. ABSENT: pedal edema Musculoskeletal exam: ABSENT: ambulatory Neurological exam: PRESENT: awake, aphasic Psychiatric exam: PRESENT: flat affect Skin exam: PRESENT: dry, warm Results Laboratory Results: 10/20/20 06:51 10/23/20 05:30 10/22/20 10/23/20 21:07 05:30 Sodium 134.1 L 137.3 Potassium 3.3 L 4.2 Chloride 102 106 Carbon Dioxide 24 26 Anion Gap 8 5 BUN 8 7 Creatinine 0.32 L 0.36 L Est GFR ( Amer) > 60 > 60 Glucose 112 H 105 Calcium 9.0 8.9 Assessment and Plan - Diagnosis (1) Hypokalemia Is this a current diagnosis for this admission?: Yes (2) Dehydration Is this a current diagnosis for this admission?: Yes (3) Hyponatremia Is this a current diagnosis for this admission?: Yes (4) Functional quadriplegia Is this a current diagnosis for this admission?: Yes (5) Atrial fibrillation Qualifiers: Atrial fibrillation type: longstanding persistent Qualified Code(s): I48.11 - Longstanding persistent atrial fibrillation Is this a current diagnosis for this admission?: Yes (6) Bipolar depression Is this a current diagnosis for this admission?: Yes (7) Hypothyroidism Qualifiers: Hypothyroidism type: unspecified Qualified Code(s): E03.9 - Hypothyroidism, unspecified Is this a current diagnosis for this admission?: Yes (8) Insulin dependent diabetes mellitus Is this a current diagnosis for this admission?: Yes - Plan Summary Summary: We will try her on a clear liquid diet. Potassium has been corrected. She had her procedure today. We will watch her overnight and anticipate discharge home tomorrow morning. - Time Time Spent with patient: 15-24 minutes Anticipated Discharge Disposition: Home, Self Care Anticipated Discharge Timeframe: within 24 hours
[2020-10-24] MEDS: INSULIN LISPRO 100 UNIT/ML 3 ML VIAL SUBCUT SCH ×3 (09:23→16:38)
[2020-10-24] MEDS: RINGERS SOLUTION,LACTATED 1,000 ML IV PRN (11:28)
--- NOTE | 2020-10-24 16:00 | PDOC DISCHARGE SUMMARY ---
Impression - Admit/DC Date/PCP Admission Date/Primary Care Provider: 10/20/20 10:00 LISA KEANE NP Discharge Date: 10/24/20 - Discharge Diagnosis (1) Hypokalemia Is this a current diagnosis for this admission?: Yes (2) Dehydration Is this a current diagnosis for this admission?: Yes (3) Hyponatremia Is this a current diagnosis for this admission?: Yes (4) Functional quadriplegia Is this a current diagnosis for this admission?: Yes (5) Atrial fibrillation Is this a current diagnosis for this admission?: Yes (6) Bipolar depression Is this a current diagnosis for this admission?: Yes (7) Hypothyroidism Is this a current diagnosis for this admission?: Yes (8) Insulin dependent diabetes mellitus Is this a current diagnosis for this admission?: Yes - Assessment Summary: We will try her on a clear liquid diet. Potassium has been corrected. She had her procedure today. We will watch her overnight and anticipate discharge home tomorrow morning. - Additional Information Resuscitation Status: Do Not Resuscitate Discharge Diet: Diabetic Discharge Activity: Supervised Activity Referrals: LISA KEANE NP [Primary Care Provider] - Prescriptions: Hydrocodone/Acetaminophen [Hydrocodone-Acetamin 5-300 mg] 1 each PO Q6HP PRN #20 tablet PRN Reason: Home Medications: Acetaminophen [Tylenol 325 mg Tablet] 650 mg PO Q4HP PRN 08/11/19 Apixaban [Eliquis 5 mg Tablet] 5 mg PO BID 08/11/19 Aripiprazole [Abilify 5 mg Tablet] 5 mg PO DAILY 08/11/19 Citalopram Hydrobromide [Celexa] 1 tab PO DAILY 08/11/19 Diltiazem HCl [Cardizem Cd 240 mg Capsule.cr] 1 cap.sr PO DAILY 08/11/19 Glycerin [Laxative Suppository] 1 each RC DAILY PRN 08/11/19 Insulin Aspart [Novolog Insulin (Aspart) 100 unit/mL] 14 unit SQ TID 08/11/19 Levothyroxine Sodium [Synthroid 0.05 mg Tablet] 50 mcg PO DAILY 08/11/19 Lurasidone HCl [Latuda 40 mg Tablet] 40 mg PO DAILY 08/11/19 Magnesium Oxide [Mag-Ox 400 mg Tablet] 400 mg PO DAILY 09/30/19 Pregabalin [Lyrica 50 mg Capsule] 100 mg PO Q8 08/11/19 Valproate Sodium [Depakene Syrup 250 mg/5 ml Udcup] 250 mg PO TID 08/11/19 Polyethylene Glycol 3350 [Miralax Powder 17 gm/Packet] 1 packet PO DAILY PRN #1 pkg 06/02/20 Ondansetron [Zofran Odt 4 mg Tablet] 1 - 2 tab PO Q4H PRN #15 tab.rapdis 09/03/20 Hydrocodone/Acetaminophen [Hydrocodone-Acetamin 5-300 mg] 1 each PO Q6HP PRN #20 tablet 10/24/20 History of Present Illiness History of Present Illness: [place] RIVERA is a 55 year old female with multiple medical comorbidities including atrial fibrillation, history of prior ischemic stroke, insulin- dependent diabetes mellitus, obesity, functional quadriplegia, bipolar 1 disorder, who was on hospice for a year and 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 She had been taken by her to see Dr. Koenig because she was not eating very much, and she was found to have gallstones without evidence of cholecystitis. Plan was for her to have an elective outpatient cholecystectomy today. However, some preoperative labs were checked and she had numerous electrolyte disturbances, most notably a profound hypokalemia. Dr. Koengi asked me to come down and evaluate the patient. Given her electrolyte disturbances, it was deemed that her conditions were not optimal for surgery at this time. Her said that she is not had any of her medications in 2 to 3 weeks. He also said that she is not been eating anything during that time, and has had very little in the way of p.o. fluids. He said for the past few days she has been having some vomiting off and on, no diarrhea but he says she has been constipated for several days. Hospital Course Hospital Course: Hydrating her and replace her electrolytes. She was substantially intracellularly depleted with potassium. When her electrolytes were corrected, she received her cholecystectomy. She tolerated the procedure well. She can resume all of her home medications except for her Lasix and her potassium. I think if she is eating and drinking well enough, she will need to take her Lasix or her potassium. I think she has problems when she has decreased p.o. intake and she continues to take her Lasix. The potassium pills are big and she does not want to swallow them, I do not think that she is a sort of person who is going to be drinking so much water that she dilutes her blood and her potassium levels dropped. She is going to follow-up with Dr. Koenig in 2 weeks. Her labs and examination were reassuring and she was discharged in stable condition. Physical Exam Vital Signs: Temp Pulse Resp BP Pulse Ox 97.6 F 96 20 105/64 100 10/24/20 08:09 10/24/20 08:09 10/24/20 08:09 10/24/20 08:09 10/24/20 08:09 Intake & Output 10/23/20 10/24/20 10/25/20 06:59 06:59 06:59 Intake Total 2883 4750 1240 Output Total 2615 Balance 2883 2135 1240 Weight 81.9 kg 81.5 kg General appearance: PRESENT: no acute distress, disheveled, obese. ABSENT: cooperative Respiratory exam: PRESENT: clear to auscultation star, symmetrical, unlabored. ABSENT: accessory muscle use, chest wall tenderness, crackles, prolonged expiratory phas, rhonchi, tachypnea, wheezes Cardiovascular exam: PRESENT: irregular rhythm, +S1, +S2 Pulses: PRESENT: normal radial pulses Vascular exam: PRESENT: normal capillary refill GI/Abdominal exam: PRESENT: hypoactive bowel sounds, soft. ABSENT: distended, guarding, rebound, tenderness Extremities exam: PRESENT: other - She had severe onychomycosis of the toenails of the lower extremities, appeared to have a pressure sore on the right heel. ABSENT: pedal edema Musculoskeletal exam: ABSENT: ambulatory Neurological exam: PRESENT: awake, aphasic Psychiatric exam: PRESENT: flat affect Skin exam: PRESENT: dry, warm Results Laboratory Results: WBC 8.6 10^3/uL (4.0-10.5) 10/20/20 06:51 RBC 5.18 10^6/uL (3.72-5.28) 10/20/20 06:51 Hgb 14.8 g/dL (12.0-15.5) 10/20/20 06:51 Hct 42.7 % (36.0-47.0) 10/20/20 06:51 MCV 83 fl (80-97) 10/20/20 06:51 MCH 28.6 pg (27.0-33.4) 10/20/20 06:51 MCHC 34.7 g/dL (32.0-36.0) 10/20/20 06:51 RDW 15.0 % (11.5-14.0) H 10/20/20 06:51 Plt Count 406 10^3/uL (150-450) 10/20/20 06:51 Lymph % (Auto) 19.7 % (13-45) 10/20/20 06:51 Pope % (Auto) 11.1 % (3-13) 10/20/20 06:51 Eos % (Auto) 0.0 % (0-6) 10/20/20 06:51 Baso % (Auto) 0.1 % (0-2) 10/20/20 06:51 Absolute Neuts (auto) 5.9 10^3/uL (1.7-8.2) 10/20/20 06:51 Absolute Lymphs (auto) 1.7 10^3/uL (0.5-4.7) 10/20/20 06:51 Absolute Monos (auto) 1.0 10^3/uL (0.1-1.4) 10/20/20 06:51 Absolute Eos (auto) 0.0 10^3/uL (0.0-0.6) 10/20/20 06:51 Absolute Basos (auto) 0.0 10^3/uL (0.0-0.2) 10/20/20 06:51 Seg Neutrophils % 69.1 % (42-78) 10/20/20 06:51 PT 14.0 SEC (11.4-15.4) 10/20/20 06:51 INR 1.06 10/20/20 06:51 APTT 31.6 SEC (23.5-35.8) 10/20/20 06:51 Sodium 137.3 mmol/L (137-145) 10/23/20 05:30 Potassium 4.2 mmol/L (3.6-5.0) 10/23/20 05:30 Chloride 106 mmol/L (98-107) 10/23/20 05:30 Carbon Dioxide 26 mmol/L (22-30) 10/23/20 05:30 Anion Gap 5 (5-19) 10/23/20 05:30 BUN 7 mg/dL (7-20) 10/23/20 05:30 Creatinine 0.36 mg/dL (0.52-1.25) L 10/23/20 05:30 Est GFR ( Amer) > 60 (>60) 10/23/20 05:30 Est GFR (Non-Af Amer) Cancelled 10/20/20 06:51 Est GFR (MDRD) Non-Af > 60 (>60) 10/23/20 05:30 Glucose 105 mg/dL (75-110) 10/23/20 05:30 POC Glucose 118 mg/dL (70-110) H 10/22/20 11:07 Calcium 8.9 mg/dL (8.4-10.2) 10/23/20 05:30 Magnesium 2.2 mg/dL (1.6-2.3) 10/22/20 05:58 Amylase 49 U/L (30-110) 10/20/20 08:04 EGFR Cancelled 10/20/20 06:51 Influenza A (RT-PCR) NEGATIVE (NEGATIVE) 10/20/20 06:10 Influenza B (RT-PCR) NEGATIVE (NEGATIVE) 10/20/20 06:10 RSV (RT-PCR) NEGATIVE (NEGATIVE) 10/20/20 06:10 SARS-CoV-2 Rap RNA(RT-PCR) NEGATIVE (NEGATIVE) 10/20/20 06:10 Plan Time Spent: Greater than 30 Minutes Stroke Is this a Stroke Patient?: No Acute Heart Failure Is this a Heart Failure Patient?: No
[2020-10-24 17:07] VITALS: BP 102/60
== END 2020-10-24 17:50 | disposition home health service (06) | DRG 417 ==
LOC: OROUT 05:50 → 4S 10:00
PROVIDERS: ADMIT Family Medicine; ATTEND Family Medicine
PROC: 3E1M38Z Irrigation of Peritoneal Cavity using Irrigating Substance, Percutaneous Approach (ICD-10-PCS; 2020-10-23)
PROC: 0FT44ZZ Resection of Gallbladder, Percutaneous Endoscopic Approach (ICD-10-PCS; principal; 2020-10-23 08:00)
PROC: 3E02340 Introduction of Influenza Vaccine into Muscle, Percutaneous Approach (ICD-10-PCS; 2020-10-24)
DX: K80.12 Calculus of gallbladder with acute and chronic cholecystitis without obstruction (principal); R53.2 Functional quadriplegia; E87.1 Hypo-osmolality and hyponatremia; I48.11 Longstanding persistent atrial fibrillation; K91.71 Accidental puncture and laceration of a digestive system organ or structure during a digestive system procedure; K82.8 Other specified diseases of gallbladder; Y65.8 Other specified misadventures during surgical and medical care; F20.9 Schizophrenia, unspecified; F31.9 Bipolar disorder, unspecified; E11.40 Type 2 diabetes mellitus with diabetic neuropathy, unspecified; I10 Essential (primary) hypertension; E86.0 Dehydration; R62.7 Adult failure to thrive; E66.9 Obesity, unspecified; Z20.828 Contact with and (suspected) exposure to other viral communicable diseases; Z66 Do not resuscitate; Z74.01 Bed confinement status; Z88.1 Allergy status to other antibiotic agents; Z79.4 Long term (current) use of insulin; Z88.0 Allergy status to penicillin; Z79.01 Long term (current) use of anticoagulants; Z79.899 Other long term (current) drug therapy; Z86.73 Personal history of transient ischemic attack (TIA), and cerebral infarction without residual deficits; Z23 Encounter for immunization
CPT/HCPCS: 36415; 790; 80048; 82150; 82962; 83735; 85025; 85610; 85730; 88304; 90471; 90686; 99140; 0241U; C9803; G0008; J0330; J1100; J1815; J1885; J2250; J2270; J2405; J2704; J3010; J3370; J3475; J3480; J3490; J7120